=== PATIENT | male | born 1965 | race Caucasian/White ===

== ENCOUNTER → 2017-01-05 | Outpatient (CLI) | payer OTHER ==
[~2017-01-05] MED LIST: FLUO40CA8 PO; LISI-461 PO; LISI10TA PO
[2017-01-05 11:04] LABS: BASO % 0.6 %; BASO ABS # 0.04 K/uL (0-0.2); COMPLETE YES; EOS % 3.8 %; IG% 0.4 %; LYMPH % 35.4 %; LYMPH ABS # 2.45 K/uL (1.2-3.4); MEAN CELL VOLUME 92.3 fL (80-100); MEAN CORPUSCULAR HEMOGLOBIN 30.9 pg (25-34); MEAN CORPUSCULAR HGB CONC 33.5 g/dl (32-36); MEAN PLATELET VOLUME 9.7 fL (7.4-10.4); MONO % 8.1 %; NEUT % 51.7 %; PLATELET COUNT 239 K/uL (130-400); RED BLOOD COUNT 4.66 M/uL (4.7-6.1); WHITE BLOOD COUNT 6.93 K/uL (4.8-10.8)
[2017-01-05 11:26] LABS: ALT/SGPT 38 U/L (12-78); BLOOD UREA NITROGEN 20 mg/dl (7-18); BUN/CREATININE RATIO 20.6 (10-20); CARBON DIOXIDE 24 mmol/L (21-32); CHLORIDE 106 mmol/L (98-107); CHOLESTEROL 303 mg/dl (0-200); CREATININE 0.99 mg/dl (0.60-1.40); GLUCOSE 106 mg/dl (70-99); MAGNESIUM 2.3 mg/dl (1.8-2.4); POTASSIUM 4.2 mmol/L (3.5-5.1); SODIUM 139 mmol/L (136-145); TRIGLYCERIDES 289 mg/dl (0-150); VERY LOW DENSITY LIPOPROT CALC 58 mg/dl
[2017-01-05 11:28] LABS: CALCIUM 9.6 mg/dl (8.5-10.1)
[2017-01-05 11:29] LABS: ALB/GLOB RATIO 1.1 (0.9-2); ALKALINE PHOSPHATASE 90 U/L (45-117); AST/SGOT 20 U/L (15-37); CHOLESTEROL/HDL RATIO 5.9; HDL CHOLESTEROL 51 mg/dl; LDL CHOLESTEROL CALCULATED 194 mg/dl
[2017-01-05 11:45] LABS: RATIO 6.9 mcg/mg (0-30.0)
== END | disposition home or self-care (01) ==
LOC: C.LABBC 07:31
PROVIDERS: ATTEND Nurse Practitioner Family
DX: I10 Essential (primary) hypertension (principal); E78.00 Pure hypercholesterolemia, unspecified

== ENCOUNTER 2017-01-28 22:33 | Emergency (ER) | payer OTHER ==
[~2017-01-28] VITALS: Ht 180.3 cm; Wt 115.3 kg
[~2017-01-28 22:33] MED LIST changes: -LISI10TA PO
[2017-01-28 22:40] VITALS: TEMP 36.6; O2SAT 97; Ht 180.3 cm; Wt 115.3 kg
[2017-01-28 23:32] LABS: BUN/CREATININE RATIO 21.3 (10-20); CALCIUM 9.4 mg/dl (8.5-10.1); CREATININE 0.92 mg/dl (0.60-1.40); POTASSIUM 3.2 mmol/L (3.5-5.1)
[2017-01-28] MEDS ORDERED: POTASSIUM CHLORIDE 10 MEQ TABCR PO STA (23:41)
[2017-01-29] MEDS ORDERED: LORAZEPAM 1 MG TAB SL STA (01:30)
--- NOTE | 2017-01-29 08:48 | EMERGENCY ROOM VISIT NOTE ---
ED Visit Note First contact with patient: 08:48 This patient's care was transferred to [place] from Amy Niño PA-C for change of shift. This is a 51-year-old male, history of alcohol abuse, who presented to the emergency department with a medical alcohol level of 317 at 11:02 PM. Patient was placed on monitor and in prone position. The patient had no adverse events while in the emergency department. The patient was expressing concerns for severe depression last night, and was awaiting sobriety and a mental health evaluation at change of shift. A mental health evaluation was performed around 9:30 AM. It was felt that the patient was not at risk, benign suicidal or homicidal thoughts. He was provided contact information for psychiatric services locally. Please see the mental health evaluation note for further details. The patient was instructed to return to the emergency department for any worsening depression or suicidal/ homicidal thoughts. Secondary assessment was performed prior to discharge, showing showing no other acute injuries or complaints of other injuries from this incident. The patient was instructed to rest and remain well hydrated today, avoiding any further alcohol. The patient was discharged, voicing understanding of all discharge instructions. ASSESSMENT: 1. Ethyl alcohol overdose 2. Depression
[2017-01-29 11:03] VITALS: BP 141/89; PULSE 90; O2SAT 99
--- NOTE | 2017-01-29 21:29 | EMERGENCY ROOM VISIT NOTE ---
History First contact with patient: 22:35 Chief Complaint: ALCOHOL OVERDOSE Stated Complaint: Etoh, depression Nursing Triage Summary: Pt arrives to ER via BLS. Pt called EMS after drinking a 5th of Rum with reports of "not feeling well." EMS reports he relayed feeling depressed. History of Present Illness The patient is a 51 year old male who presents to the Emergency Room with complaints of Alcohol intoxication. Patient states he drank half a bottle of rum and then called EMS as he felt sad. Patient denies any previous problems it would like to go home. Patient lives alone. Patient denies drug use, chest pain, dyspnea, abdominal pain, fever, chills, cough, congestion or any other medical complaints. No fall. Review of Systems See HPI for pertinent positives & negatives. A total of 10 systems reviewed and were otherwise negative. Past Medical/Surgical History Medical Problems: (1) Alcoh Dep Nec/Nos-Unspec (2) Hip Joint Replacement Status (3) Hypertension Nos (4) Pure Hypercholesterolem Family History Blood clots Cancer Diabetes mellitus Heart disease Hypertension Social History Smoking Status: Unknown if Ever Smoked Alcohol Use: heavy Drug Use: none Marital Status: Housing Status: lives alone Occupation Status: employed Current/Historical Medications Unable to Obtain Active Prescriptions or Reported Meds Allergies Coded Allergies: No Known Allergies (Verified , 11/20/15) Physical Exam Vital Signs Date Time Temp Pulse Resp B/P (MAP) Pulse Ox O2 Delivery O2 Flow Rate FiO2 01/29/17 11:03 90 141/89 99 01/29/17 09:06 75 13 98 01/29/17 09:01 141/91 01/29/17 08:36 70 13 96 01/29/17 08:31 69 01/29/17 08:31 144/86 01/29/17 08:06 69 14 99 01/29/17 08:01 149/85 01/29/17 08:00 63 16 98 01/29/17 07:31 152/82 01/29/17 07:30 69 18 98 01/29/17 07:01 122/67 01/29/17 07:00 75 14 95 01/29/17 06:30 68 18 117/70 95 Room Air 01/29/17 06:00 71 14 115/78 92 Room Air 01/29/17 05:00 74 18 103/59 93 Room Air 01/29/17 04:00 76 18 110/69 94 Room Air 01/29/17 03:00 84 01/29/17 01:00 85 18 108/61 93 Room Air 01/28/17 23:30 88 18 126/85 94 Room Air 01/28/17 23:19 96 01/28/17 22:53 88 18 140/93 95 Room Air 01/28/17 22:40 36.6 92 18 131/90 97 Room Air 01/28/17 22:40 97 Room Air 01/28/17 22:40 97 Room Air Physical Exam PHYSICAL EXAM: VITALS: Vitals are noted on the nurse's note and reviewed by myself. Vital signs stable. GENERAL: White male with EtOH odor asking for food, in no acute distress, nondiaphoretic, well-developed well-nourished. The patient is visibly intoxicated. SKIN: The skin was without obvious lacerations, abrasions, or rashes. There is no tenting of the skin. Capillary reflex less than 2 seconds. HEENT: Normocephalic, atraumatic. PERRLA. EOMI. Conjunctiva with mild injection without icterus. Tympanic membranes without erythema or effusion bilaterally no hemotympanum. External auditory canals are clear. Nares patent bilaterally. No epistaxis. Oropharynx without erythema or exudate. Uvula midline. Oral mucosal moist. No lymphadenopathy. Neck is supple without cervical spine tenderness. HEART: Regular rate and rhythm without murmurs gallops or rubs. Peripheral pulses 2+. LUNGS: Clear to auscultation bilaterally without wheezes, rales or rhonchi. ABDOMEN: Positive bowel sounds x 4. Normal tympanic percussion. Soft, nontender, without masses or organomegaly. MUSCULOSKELETAL: Gross motor function of the upper and lower extremities intact. The patient has a staggering gait. NEUROLOGIC: The patient is visibly intoxicated. Once they were more sober they were alert and oriented to person place and time. Medical Decision & Procedures Laboratory Results 01/28/17 23:02 Test 01/28/17 23:02 Anion Gap 8.0 mmol/L (3-11) Est Creatinine Clear Calc Drug Dose 119.9 ml/min Estimated GFR () 109.7 Estimated GFR (Non- 94.6 BUN/Creatinine Ratio 21.3 (10-20) Calcium Level 9.4 mg/dl (8.5-10.1) Ethyl Alcohol mg/dL 317.0 mg/dl (0-3) Medications Administered Medications (Trade) Dose Ordered Sig/Carlo Route Start Time Stop Time Status Last Admin Dose Admin Potassium Chloride (Klor-Con M10) 30 meq NOW STAT PO 01/28/17 23:41 01/28/17 23:42 DC 01/28/17 23:52 30 MEQ Lorazepam (Ativan Tab) 1 mg NOW STAT SL 01/29/17 01:30 01/29/17 01:31 DC 01/29/17 01:36 1 MG ED Course Prior records/ancillary studies reviewed. Triage Nursing notes reviewed. Additional history obtained from EMS. The patient's history was concerning for altered mental status and a possible alcohol overdose. Differential diagnosis: Etiologies such as alcohol intoxication, toxicologic, infection, hypoglycemia, electrolyte abnormalities, cardiac sources, intracerebral event, neurologic, as well as others were entertained. Physical examination: As above. The patient is clinically intoxicated. no trauma noted. ER treatment provided: Monitoring Aspiration precautions The patient was frequently reassessed. Diagnostic interpretation by me: Cardiac monitoring did not reveal any evidence of dysrhythmia. The labs reviewed. The patient's blood alcohol level was 317 mg/dL. Exam and history seem consistent with alcohol intoxication with thoughts of depression. Patient will be evaluated once he is sober as he currently denies any suicidal or homicidal ideations but he is highly intoxicated. Case is signed out to Howard Herrera PA-C pending patient sobering up and reevaluation in stable condition. By the evaluation outlined above emergent etiologies such as trauma, infection, hypoglycemia, electrolyte abnormalities, cardiac sources, intracerebral event, neurologic,as well as others were deemed relatively unlikely. The patient was informed about the findings as listed above. The patient was counseled on the dangers of excessive alcohol use. I gave my usual and customary discussion regarding this issue. All questions were answered and the patient was pleased with the treatment. Return instructions were outlined and the patient was discharged in stable condition once their mental status improved and a safe destination was confirmed. Outpatient prescription management: None Referral: The patient was referred back to their primary care physician for follow-up in 2 to 3 days for a recheck of their current condition. Case reviewed with my attending Medical Decision As above Impression Primary Impression: Alcohol abuse Departure Information Dispostion Home / Self-Care Condition GOOD Prescriptions Unable to Obtain Active Prescriptions or Reported Meds Referrals Carlos Nuñez III, CRNP (PCP) Patient Instructions My [facility] Additional Instructions Keep well-hydrated. Tylenol every 6 hours as needed for pain (Maximum 3000 mg Tylenol in 24 hr period). Follow up with family doctor in 1-2 days. No driving for the next 24 hours. Recommend no alcohol for the next 48 hours and avoid binge drinking in the future. Return to ER sooner for chest pain, abdominal pain, worsening signs or symptoms or as needed.
== END 2017-01-29 11:05 | disposition home or self-care (01) ==
LOC: C.EDB 22:33 → EDBD 22:33 → C.EDB 01-29 11:05
DX: F10.129 Alcohol abuse with intoxication, unspecified (principal); Y90.8 Blood alcohol level of 240 mg/100 ml or more; F32.9 Major depressive disorder, single episode, unspecified; I10 Essential (primary) hypertension; E78.00 Pure hypercholesterolemia, unspecified; Z96.649 Presence of unspecified artificial hip joint; Z83.2 Family history of diseases of the blood and blood-forming organs and certain disorders involving the immune mechanism; Z83.3 Family history of diabetes mellitus; Z82.49 Family history of ischemic heart disease and other diseases of the circulatory system

== ENCOUNTER 2017-03-09 22:55 | Emergency (ER) | payer OTHER ==
[~2017-03-09] VITALS: Ht 177.8 cm; Wt 117.1 kg
[2017-03-09 23:04] VITALS: TEMP 36.6; Ht 177.8 cm; Wt 117.1 kg
[2017-03-09] MEDS ORDERED: LISI10TA PO (23:25)
[2017-03-09] MEDS ORDERED: FLUO40CA8 PO (23:25)
[2017-03-10 05:31] VITALS: BP 121/80; PULSE 81; O2SAT 95
--- NOTE | 2017-03-10 06:42 | EMERGENCY ROOM VISIT NOTE ---
History Report prepared by Prosper: Jorje Cohen Under the Supervision of: Dr. Christiano Barr M.D. First contact with patient: 23:16 Chief Complaint: MENTAL HEALTH EVALUATION Stated Complaint: MENTAL HEALTH EVAL History of Present Illness The patient is a 51 year old male who presents to the Emergency Room for a mental health evaluation. This history is limited secondary to alcohol intoxication. Earlier this evening, the patient called the police. He does not know why he called the police, but he states that he is very depressed. He states that "shit is not going right" in his life. His daughter recently got out of a rehabilitation center for a heroin addiction yesterday. He has not heard from her since. He states she is living in [place], and he is very worried about her. Earlier today, he quit his job. He denies any suicidal ideation. He has a past medical history of depression and alcoholism. He does not use any other drugs. He is not looking for placement into a rehab center. Source of History: patient History Limited By: intoxication Onset: Earlier this evening Position: other (Global) Symptom Intensity: moderate Quality: other (Mental Health Evaluation) Timing: constant Note: He denies any suicidal ideation. Review of Systems Limited due to alcohol intoxication. Past Medical & Surgical Medical Problems: (1) Alcoh Dep Nec/Nos-Unspec (2) Hip Joint Replacement Status (3) Hypertension Nos (4) Pure Hypercholesterolem Family History Blood clots Cancer Diabetes mellitus Heart disease Hypertension Social History Smoking Status: Current Some Day Smoker Alcohol Use: heavy Drug Use: none Marital Status: Housing Status: lives alone Occupation Status: unemployed Current/Historical Medications Scheduled Fluoxetine (Prozac), 40 MG PO DAILY Lisinopril (Prinivil), 10 MG PO DAILY Allergies Coded Allergies: No Known Allergies (Verified , 03/09/17) Physical Exam Vital Signs Date Time Temp Pulse Resp B/P (MAP) Pulse Ox O2 Delivery O2 Flow Rate FiO2 03/10/17 05:31 81 18 121/80 95 03/10/17 03:03 92 18 135/88 94 Room Air 03/10/17 01:08 100 18 94 Room Air 03/09/17 23:04 36.6 109 18 120/74 95 Room Air Physical Exam Constitutional: Vital signs reviewed. Eyes: Pupils are equal round reactive to light. Conjunctiva are noninjected. ENT: Pharynx is clear without erythema or exudate. Mucous membranes are moist. Neck supple without meningeal signs. Respiratory: Clear to auscultation bilaterally. Breath sounds are equal bilaterally. Cardiovascular: Regular rate and rhythm. No rubs or gallops. GI: Soft, nondistended and nontender. Bowel sounds are present. Musculoskeletal: No peripheral edema. Integumentary: No cyanosis. Neurological: The patient is awake and alert. No focal deficits. Psychiatric: He appears intoxicated. Medical Decision & Procedures ED Course 2316: The patient was evaluated in room A9. A complete history and physical exam was performed. 0020: Case management evaluated the patient at this time. He states that he is just very lonely and would like to lie in the ED for a while. 0125: The patient is sleeping at this time. 0530: Upon reevaluation, the patient is awake, alert, and does not appear to be intoxicated anymore. He does not want a mental health evaluation and would like to go home. He is ready for discharge. Medical Decision This is a 51-year-old male who presents with alcohol intoxication. I did perform a limited focused review of portions of the patient's old chart on the electronic medical record. The patient was here in the Emergency Department on January 28 for an alcohol overdose. He has also had several prior visits for alcohol intoxication. I did evaluate the patient as noted above. He is presenting intoxicated. He states that he is not feeling well because he does not know where his daughter is and he quit his job today. He denies any homicidal or suicidal ideation. He does not want inpatient psychiatric care or rehabilitation for his alcohol dependence. He stated that he simply wanted to sleep here and not feel lonely. We did observe him in the ED for some time. He appeared clinically more sober and wanted to leave. He ambulated without difficulty. He had no slurred speech. He again denied wanting any psychiatric help for help with his alcohol dependence. Safe transportation was arranged for him and he was discharged. Medication Reconcilliation Current Medication List: was personally reviewed by me Blood Pressure Screening Patient's blood pressure: Normal blood pressure Blood pressure disposition: Did not require urgent referral Impression Primary Impression: Alcohol intoxication Scribe Attestation The scribe's documentation has been prepared under my direct and personally reviewed by me in its entirety. I confirm that the note above accurately reflects all work, treatment, procedures, and medical decision making performed by me. Departure Information Dispostion Home / Self-Care Referrals Carlos Nuñez III, CRNP (PCP) Forms HOME CARE DOCUMENTATION FORM, IMPORTANT VISIT INFORMATION Patient Instructions ED Alcohol Intoxication, My [facility] Additional Instructions You have been examined and treated today on an emergency basis only. This is not a substitute for, or an effort to provide, complete comprehensive medical care. It is impossible to recognize and treat all injuries or illnesses in a single emergency department visit. It is therefore important that you follow up closely with your physician. Call as soon as possible for an appointment. Return for worsening symptoms or if you develop thoughts of hurting yourself or any other concerning symptoms. Problem Qualifiers Primary Impression: Alcohol intoxication Complication of substance-induced condition: uncomplicated Qualified Codes: F10.920 - Alcohol use, unspecified with intoxication, uncomplicated
== END 2017-03-10 05:32 | disposition home or self-care (01) ==
LOC: C.EDB 22:56 → C.EDA 03-10 05:32
DX: F10.129 Alcohol abuse with intoxication, unspecified (principal); I10 Essential (primary) hypertension; E78.00 Pure hypercholesterolemia, unspecified; F17.200 Nicotine dependence, unspecified, uncomplicated; Z96.649 Presence of unspecified artificial hip joint; Z79.899 Other long term (current) drug therapy; Z80.9 Family history of malignant neoplasm, unspecified; Z83.3 Family history of diabetes mellitus; Z82.49 Family history of ischemic heart disease and other diseases of the circulatory system

== ENCOUNTER 2017-03-30 21:00 | Emergency (ER) | payer OTHER ==
[~2017-03-30] VITALS: Ht 175.3 cm; Wt 120.8 kg
[~2017-03-30 21:00] MED LIST changes: -LISI-461 PO; +LISI10TA PO
[2017-03-30 21:01] VITALS: TEMP 36.8; Ht 175.3 cm; Wt 120.8 kg
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
[2017-03-30 22:23] LABS: BASO % 0.6 %; BASO ABS # 0.07 K/uL (0-0.2); COMPLETE YES; EOS % 1.7 %; HEMATOCRIT 40.8 % (42-52); IG% 0.9 %; LYMPH ABS # 3.29 K/uL (1.2-3.4); MEAN CELL VOLUME 88.9 fL (80-100); MEAN CORPUSCULAR HEMOGLOBIN 31.8 pg (25-34); MEAN CORPUSCULAR HGB CONC 35.8 g/dl (32-36); MEAN PLATELET VOLUME 8.9 fL (7.4-10.4); MONO % 5.1 %; NEUT % 63.7 %; PLATELET COUNT 315 K/uL (130-400); RED BLOOD COUNT 4.59 M/uL (4.7-6.1); WHITE BLOOD COUNT 11.74 K/uL (4.8-10.8)
[2017-03-30 22:31] LABS: BUN/CREATININE RATIO 14.9 (10-20); CALCIUM 9.5 mg/dl (8.5-10.1); CREATININE 1.4 mg/dl (0.60-1.40); POTASSIUM 3.6 mmol/L (3.5-5.1)
[2017-03-30 22:42] LABS: THYROID STIMULATING HORMONE 1.97 uIu/ml (0.300-4.500)
[2017-03-30] MEDS ORDERED: LORAZEPAM 1 MG TAB SL STA (22:48)
[2017-03-30 22:51] VITALS: PULSE 88; O2SAT 94
[2017-03-30 23:10] VITALS: BP 86/45
== END 2017-03-30 23:20 | disposition home or self-care (01) ==
LOC: C.EDB 21:00 → C.EDA 23:20
DX: F10.920 Alcohol use, unspecified with intoxication, uncomplicated (principal); I10 Essential (primary) hypertension; E78.00 Pure hypercholesterolemia, unspecified; Z82.49 Family history of ischemic heart disease and other diseases of the circulatory system; Z80.9 Family history of malignant neoplasm, unspecified; Z83.3 Family history of diabetes mellitus; F17.210 Nicotine dependence, cigarettes, uncomplicated; Z79.899 Other long term (current) drug therapy

== ENCOUNTER 2017-07-22 03:47 | Observation (INO) | payer OTHER ==
[~2017-07-22] VITALS: Ht 177.8 cm; Wt 122.5 kg
[2017-07-22] MEDS ORDERED: ONDANSETRON INJ 2 MG/ML 2 ML VIAL IV STA (04:00)
[2017-07-22] MEDS ORDERED: MoRPHine SULFATE 4 MG/ML 1 ML CARP\\VIAL IV STA (04:00)
[2017-07-22] MEDS ORDERED: SODIUM CHLORIDE 0.9% 500ML 500 ML IV STA (04:00)
[2017-07-22 04:25] LABS: BASO % 0.5 %; BASO ABS # 0.04 K/uL (0-0.2); EOS % 2.4 %; EOS ABS # 0.21 K/uL (0-0.5); HEMATOCRIT 41.6 % (42-52); HEMOGLOBIN 14.7 g/dL (14.0-18.0); IG# 0.01 K/uL (0.00-0.02); LYMPH % 24.1 %; MEAN CELL VOLUME 93.7 fL (80-100); MEAN CORPUSCULAR HEMOGLOBIN 33.1 pg (25-34); MEAN CORPUSCULAR HGB CONC 35.3 g/dl (32-36); MEAN PLATELET VOLUME 9.6 fL (7.4-10.4); MONO % 5.5 %; MONO ABS # 0.48 K/uL (0.11-0.59); NEUT % 67.4 %; NEUT ABS # 5.88 K/uL (1.4-6.5); PLATELET COUNT 219 K/uL (130-400); RED CELL DISTRIBUTION WIDTH CV 13.4 % (11.5-14.5); RED CELL DISTRIBUTION WIDTH SD 46.3 fL (36.4-46.3); WHITE BLOOD COUNT 8.72 K/uL (4.8-10.8)
[2017-07-22 04:30] LABS: ISTAT IONIZED CALCIUM 1.26 mmol/l (1.12-1.32); ISTAT POTASSIUM 3.9 mEq/L (3.3-5.0)
[2017-07-22] MEDS ORDERED: SODIUM CHLORIDE 0.9% 1000ML 2,000 ML IV STA (04:49)
[2017-07-22] MEDS ORDERED: OPTIRAY 320 IV PRN (05:00)
[2017-07-22] MEDS ORDERED: HYDROmorphone INJ 1 MG/ML SYR IV STA (05:02)
[2017-07-22 05:06] LABS: ALBUMIN 4.3 gm/dl (3.4-5.0); CALCIUM 9.8 mg/dl (8.5-10.1); CREATININE 1.13 mg/dl (0.60-1.40); TOTAL PROTEIN 8.5 gm/dl (6.4-8.2)
[2017-07-22 05:12] LABS: POTASSIUM 3.9 mmol/L (3.5-5.1)
[2017-07-22] MEDS ORDERED: CALCTAB5 PO (05:18)
[2017-07-22] MEDS ORDERED: KETOROLAC TROMETHAMINE 30 MG/ML VIAL IV STA (05:39)
[2017-07-22] MEDS ORDERED: TAMSULOSIN HCL 0.4 MG CAP PO ONE (06:15)
--- NOTE | 2017-07-22 06:42 | EMERGENCY ROOM VISIT NOTE ---
History First contact with patient: 03:55 Chief Complaint: ABDOMINAL PAIN Stated Complaint: STOMACH PAIN History of Present Illness The patient is a 51 year old male who presents to the Emergency Room with complaints of severe sudden onset of left lower abdominal pain since 9 PM last night currently 8 out of 10. Nothing makes it better or worse. It usually radiates to his groin. Patient states his urine has been dark. Patient's last drink was 5 days ago. He has a history of alcoholism. He continues to smoke. He has been taking his blood pressure medication. Patient denies chest pain, dyspnea, fever, chills, dysuria, black stool or recent blood in the stool. Colonoscopy 10 years ago was negative. Nothing more recent. Review of Systems See HPI for pertinent positives & negatives. A total of 10 systems reviewed and were otherwise negative. Past Medical/Surgical History Medical Problems: (1) Alcoh Dep Nec/Nos-Unspec (2) Hip Joint Replacement Status (3) Hydronephrosis with obstructing calculus (4) Hypertension Nos (5) Pure Hypercholesterolem Family History Blood clots Cancer Diabetes mellitus Heart disease Hypertension Social History Smoking Status: Current Every Day Smoker Alcohol Use: heavy Drug Use: none Marital Status: Housing Status: lives alone Occupation Status: unemployed Current/Historical Medications Scheduled Calcium Carbonate (Caltrate 600), 1 TAB PO DAILY Fluoxetine (Prozac), 40 MG PO DAILY Lisinopril (Prinivil), 10 MG PO DAILY Allergies Coded Allergies: No Known Allergies (Verified , 07/22/17) Physical Exam Vital Signs Date Time Temp Pulse Resp B/P (MAP) Pulse Ox O2 Delivery O2 Flow Rate FiO2 07/22/17 06:07 74 18 95 07/22/17 06:01 171/124 07/22/17 05:52 81 22 92 07/22/17 05:47 78 17 95 Room Air 07/22/17 05:32 83 21 91 07/22/17 05:31 180/126 07/22/17 05:17 84 15 95 07/22/17 05:12 82 19 98 07/22/17 05:02 193/96 07/22/17 04:37 90 18 96 07/22/17 04:32 79 19 98 07/22/17 04:31 207/140 07/22/17 04:28 78 07/22/17 04:27 74 20 97 Room Air 07/22/17 04:26 201/125 07/22/17 03:52 36.6 83 18 214/129 95 Room Air Physical Exam VITALS: Vitals are noted on the nurse's note and reviewed by myself. Vital signs hypertensive GENERAL: Pleasant male writhing in pain, nondiaphoretic, well-developed well- nourished. SKIN: The skin was without rashes, erythema, edema, or bruising. There is no tenting of the skin. HEAD: Normocephalic atraumatic. EARS: External auditory canals clear, tympanic membranes pearly hope without erythema or effusion bilaterally. EYES: Pupils equal round and reactive to light and accommodation. Conjunctivae without injection, sclerae without icterus. Extraocular movements intact. NOSE: Patent, turbinates without inflammation or discharge. MOUTH: Mucous membranes mildly dry. Pharynx without erythema or exudate. Uvula midline. Airway patent. Tongue does not deviate. NECK: Supple without nuchal rigidity. No lymphadenopathy. No thyromegaly. Cervical spine is nontender. No JVD. HEART: Regular rate and rhythm LUNGS: Clear to auscultation bilaterally without wheezes, rales or rhonchi. No dullness to percussion. No retractions or accessory muscle use. ABDOMEN: Positive bowel sounds x 4. Normal tympanic percussion. Soft, nontender, without masses or organomegaly. Osei sign negative. No guarding or rebound tenderness. Left CVA tenderness MUSCULOSKELETAL: No muscle atrophy, erythema, or edema noted. NEURO: Patient was alert and oriented to person place and time. Normal sensation to light and sharp touch. No focal neurological deficits. Medical Decision & Procedures Laboratory Results 07/22/17 04:15 Red Blood Count 4.44, Mean Corpuscular Volume 93.7, Mean Corpuscular Hemoglobin 33.1, Mean Corpuscular Hemoglobin Concent 35.3, Mean Platelet Volume 9.6, Neutrophils (%) (Auto) 67.4, Lymphocytes (%) (Auto) 24.1, Monocytes (%) (Auto) 5.5, Eosinophils (%) (Auto) 2.4, Basophils (%) (Auto) 0.5, Neutrophils # (Auto) 5.88, Lymphocytes # (Auto) 2.10, Monocytes # (Auto) 0.48, Eosinophils # (Auto) 0.21, Basophils # (Auto) 0.04 07/22/17 04:15 Test 07/22/17 04:05 07/22/17 04:15 07/22/17 04:19 07/22/17 05:22 Urine Color YELLOW Urine Appearance CLOUDY (CLEAR) Urine pH 5.0 (4.5-7.5) Urine Specific [place] 1.030 (1.000-1.030) Urine Protein NEG (NEG) Urine Glucose (UA) NEG (NEG) Urine Ketones NEG (NEG) Urine Occult Blood 3+ (NEG) Urine Nitrite NEG (NEG) Urine Bilirubin NEG (NEG) Urine Urobilinogen NEG (NEG) Urine Leukocyte Esterase NEG (NEG) Urine WBC (Auto) 1-5 /hpf (0-5) Urine RBC (Auto) 10-30 /hpf (0-4) Urine Hyaline Casts (Auto) 1-5 /lpf (0-5) Urine Epithelial Cells (Auto) 0-5 /lpf (0-5) Urine Bacteria (Auto) NEG (NEG) White Blood Count 8.72 K/uL (4.8-10.8) Red Blood Count 4.44 M/uL (4.7-6.1) Hemoglobin 14.7 g/dL (14.0-18.0) Hematocrit 41.6 % (42-52) Mean Corpuscular Volume 93.7 fL (80-100) Mean Corpuscular Hemoglobin 33.1 pg (25-34) Mean Corpuscular Hemoglobin Concent 35.3 g/dl (32-36) Platelet Count 219 K/uL (130-400) Mean Platelet Volume 9.6 fL (7.4-10.4) Neutrophils (%) (Auto) 67.4 % Lymphocytes (%) (Auto) 24.1 % Monocytes (%) (Auto) 5.5 % Eosinophils (%) (Auto) 2.4 % Basophils (%) (Auto) 0.5 % Neutrophils # (Auto) 5.88 K/uL (1.4-6.5) Lymphocytes # (Auto) 2.10 K/uL (1.2-3.4) Monocytes # (Auto) 0.48 K/uL (0.11-0.59) Eosinophils # (Auto) 0.21 K/uL (0-0.5) Basophils # (Auto) 0.04 K/uL (0-0.2) RDW Standard Deviation 46.3 fL (36.4-46.3) RDW Coefficient of Variation 13.4 % (11.5-14.5) Immature Granulocyte % (Auto) 0.1 % Immature Granulocyte # (Auto) 0.01 K/uL (0.00-0.02) Est Creatinine Clear Calc Drug Dose 99.2 ml/min Estimated GFR () 85.5 Estimated GFR (Non- 73.8 BUN/Creatinine Ratio 21.4 (10-20) Bedside Lactic Acid Venous 2.44 mmol/L (0.90-1.70) Calcium Level 9.8 mg/dl (8.5-10.1) Total Bilirubin 0.5 mg/dl (0.2-1) Direct Bilirubin 0.1 mg/dl (0-0.2) Aspartate Amino Transf (AST/SGOT) 59 U/L (15-37) Alanine Aminotransferase (ALT/SGPT) 110 U/L (12-78) Alkaline Phosphatase 97 U/L (45-117) Total Protein 8.5 gm/dl (6.4-8.2) Albumin 4.3 gm/dl (3.4-5.0) Lipase 218 U/L (73-393) Bedside Hemoglobin 14.3 g/dl (14.0-18.0) Bedside Hematocrit 42 % (42-52) Bedside Sodium 141 mEq/L (135-144) Bedside Potassium 3.9 mEq/L (3.3-5.0) Bedside Chloride 106 mEq/L (101-112) Bedside Total CO2 25 mEq/l (24-31) Anion Gap 15.0 mmol/L (16-25) Bedside Blood Urea Nitrogen 25 mg/dl (7-18) Bedside Creatinine 1.0 mg/dl (0.6-1.3) Bedside Glucose (other) 131 mg/dl (70-99) Bedside Ionized Calcium (Divina) 1.26 mmol/l (1.12-1.32) Medications Administered Medications (Trade) Dose Ordered Sig/Carlo Route Start Time Stop Time Status Last Admin Dose Admin Morphine Sulfate (MoRPHine SULFATE INJ) 4 mg NOW STAT IV 07/22/17 04:00 07/22/17 04:02 DC 07/22/17 04:29 4 MG Ondansetron HCl (Zofran Inj) 4 mg NOW STAT IV 12/20/17 04:00 07/22/17 04:02 DC 07/22/17 04:32 4 MG Sodium Chloride 500 ml @ 999 mls/hr Q31M STAT IV 07/22/17 04:00 07/22/17 04:30 DC 07/22/17 04:29 999 MLS/HR Sodium Chloride 2,000 ml @ 999 mls/hr Q2H1M STAT IV 07/22/17 04:49 07/22/17 06:49 07/22/17 05:04 999 MLS/HR Hydromorphone HCl (Dilaudid Inj) 1 mg NOW STAT IV 07/22/17 05:02 07/22/17 05:03 DC 07/22/17 05:09 1 MG Ketorolac Tromethamine (Toradol Inj) 30 mg NOW STAT IV 07/22/17 05:39 07/22/17 05:40 DC 07/22/17 05:46 30 MG Tamsulosin HCl (Flomax Cap) 0.4 mg NOW ONCE PO 07/22/17 06:15 07/22/17 06:16 DC 07/22/17 06:11 0.4 MG ED Course Prior records/ancillary studies reviewed. Triage Nursing notes reviewed. The patient's history was concerning for left lower abdominal pain. Differential diagnosis: Etiologies such as renal colic, appendicitis, diverticulitis, mesenteric ischemia, aortic pathology, infections, inflammatory bowel disease, PUD, biliary pathology, UTI, as well as others were entertained. Physical examination findings: As above. ER treatment provided: Morphine, Dilaudid, IV fluids, Toradol, Flomax On reassessment the patient felt better. Diagnostic interpretation by me: The labs revealed no leukocytosis. Lactic acid 2.44. Urinalysis revealed hematuria. There was no sign of UTI. mildly elevated LFTs and hep panel was ordered with coags. Imaging studies: CT of the abdomen and pelvis as above. There is a mild left hydronephrosis and hydroureter with perinephric and her usual stranding. Unable to visualize kidney stone per stat radiology. KUB with no obstruction per my interpretation Consultation: A consultation was placed with Dr Basurto, hospitalist. The case was discussed and diagnostics were reviewed. The patient was evaluated in the ER for further treatment. It appears that the patient has isolated renal colic from a left sided stone. Patient was still in severe amount of pain. Blood pressure slowly came down. Patient will be evaluated by medicine for possible admission for intractable pain, elevated blood pressure and lactic acid. The patient appeared Dehydrated on clinical exam and this could be causing a mild elevation in his lactic acid. He was hydrated as above. By the evaluation outlined above emergent etiologies such as appendicitis, diverticulitis, mesenteric ischemia, aortic pathology, infections, inflammatory bowel disease, PUD, biliary pathology , UTI, as well as others were deemed relatively unlikely. The pt informed about the findings as listed above. All questions were answered and pleased with the treatment. Case reviewed with my Attending. Medical Decision As above Impression Primary Impression: Renal colic on left side Additional Impression: Hypertension Departure Information Dispostion Being Evaluated By Hospitalist Condition GOOD Referrals No Doctor, Assigned (PCP) Patient Instructions My [facility] Problem Qualifiers
[2017-07-22] MEDS ORDERED: ONDANSETRON INJ 2 MG/ML 2 ML VIAL IV PRN (06:45)
[2017-07-22] MEDS ORDERED: ALUMINUM/MAGNESIUM/SIMETH (MAALOX MAX) 30 ML UDC PO PRN (06:45)
[2017-07-22] MEDS ORDERED: ACETAMINOPHEN 325 MG TAB PO PRN (06:45)
[2017-07-22] MEDS ORDERED: MAGNESIUM HYDROXIDE SUSP 30 ML UDC PO PRN (06:45)
[2017-07-22] MEDS ORDERED: POLYETHYLENE (MIRALAX) 17 GM PACK PO PRN (06:45)
--- NOTE | 2017-07-22 06:46 | History and Physical ---
History & Physical Date & Time of Service: Jul 22, 2017 at 06:40 Chief Complaint: Stomach Pain Primary Care Physician: Carlos Nuñez III, CRNP History of Present Illness Source: patient 51 y/o M Hx ETOH abuse, HTN, HPL, depression with previous suicide attempts. Pt presents with acute onset of lower abdominal pain, mostly in his LLQ. He denies nausea/vomiting, fevers or rigors. He describes urinary frequency. A CT abdomen was obtained in the ER and revealed R hydronephrosis with perinephric stranding. No discrete calculus was observed, however, the finding suggest a possible obstruction at the R UVJ. Past Medical/Surgical History 1) ETOH abuse 2) HTN 3) HPL 4) Fatty liver 5) Depression with previous suicide attempts 6) Smoker 7) B/L hip replacement 8) Obesity Family History Blood clots Cancer Diabetes mellitus Heart disease Hypertension Social History Smokes 10 cigarettes daily - recent daily "heavy" drinking. Unemployed. Smoking Status: Current Every Day Smoker Drug Use: none Marital Status: Housing status: lives alone Occupational Status: unemployed Immunizations History of Influenza Vaccine: Yes History of Tetanus Vaccine?: Yes History of Pneumococcal: No History of Hepatitis B Vaccine: No Multi-Drug Resistant Organisms History of MDRO: No Allergies Coded Allergies: No Known Allergies (Verified , 07/22/17) Home Medications Scheduled Calcium Carbonate (Caltrate 600), 1 TAB PO DAILY Fluoxetine (Prozac), 40 MG PO DAILY Lisinopril (Prinivil), 10 MG PO DAILY Review of Systems Constitutional: No fever, No chills, No sweats Eyes: No worsening of vision ENT: No hearing loss, No unusual epistaxis, No nasal symptoms Respiratory: No cough, No sputum, No wheezing Cardiovascular: No chest pain, No orthopnea, No PND Abdomen: + pain, No nausea, No vomiting Musculoskeletal: No joint pain Genitourinary - Male: No hematuria, No dysuria Neurologic: No memory loss, No paralysis, No weakness Psychiatric: No depression symptoms Endocrine: No fatigue Hematologic / Lymphatic: No abnormal bleeding/bruising Integumentary: No rash Allergic / Immunologic: No environmental allergies Physical Exam Vital Signs Date Time Temp Pulse Resp B/P (MAP) Pulse Ox O2 Delivery O2 Flow Rate FiO2 07/22/17 06:07 74 18 95 07/22/17 06:01 171/124 07/22/17 05:52 81 22 92 07/22/17 05:47 78 17 95 Room Air 07/22/17 05:32 83 21 91 07/22/17 05:31 180/126 07/22/17 05:17 84 15 95 07/22/17 05:12 82 19 98 07/22/17 05:02 193/96 07/22/17 04:37 90 18 96 07/22/17 04:32 79 19 98 07/22/17 04:31 207/140 07/22/17 04:28 78 07/22/17 04:27 74 20 97 Room Air 07/22/17 04:26 201/125 07/22/17 03:52 36.6 83 18 214/129 95 Room Air General Appearance: WD/WN, no apparent distress Head: normocephalic Eyes: normal inspection ENT: normal ENT inspection, hearing grossly normal Neck: supple, no adenopathy, thyroid normal, no JVD Respiratory/Chest: chest non-tender, lungs clear, normal breath sounds Cardiovascular: regular rate, rhythm, no edema, no gallop Abdomen/GI: normal bowel sounds, + pertinent finding (mild L flank and LLQ tenderness to palpation) Neurologic/Psych: line clearance foreman II-XII nml as tested, no motor/sensory deficits, alert, oriented x 3 Skin: normal color, warm/dry Diagnostics Laboratory Results Results Past 24 Hours Test 07/22/17 04:05 07/22/17 04:15 07/22/17 04:19 07/22/17 05:22 Range/Units Urine Color YELLOW Urine Appearance CLOUDY CLEAR Urine pH 5.0 4.5-7.5 Urine Specific [place] 1.030 1.000-1.030 Urine Protein NEG NEG Urine Glucose (UA) NEG NEG Urine Ketones NEG NEG Urine Occult Blood 3+ NEG Urine Nitrite NEG NEG Urine Bilirubin NEG NEG Urine Urobilinogen NEG NEG Urine Leukocyte Esterase NEG NEG Urine WBC (Auto) 1-5 0-5 /hpf Urine RBC (Auto) 10-30 0-4 /hpf Urine Hyaline Casts (Auto) 1-5 0-5 /lpf Urine Epithelial Cells (Auto) 0-5 0-5 /lpf Urine Bacteria (Auto) NEG NEG White Blood Count 8.72 4.8-10.8 K/uL Red Blood Count 4.44 4.7-6.1 M/uL Hemoglobin 14.7 14.0-18.0 g/dL Hematocrit 41.6 42-52 % Mean Corpuscular Volume 93.7 80-100 fL Mean Corpuscular Hemoglobin 33.1 25-34 pg Mean Corpuscular Hemoglobin Concent 35.3 32-36 g/dl Platelet Count 219 130-400 K/uL Mean Platelet Volume 9.6 7.4-10.4 fL Neutrophils (%) (Auto) 67.4 % Lymphocytes (%) (Auto) 24.1 % Monocytes (%) (Auto) 5.5 % Eosinophils (%) (Auto) 2.4 % Basophils (%) (Auto) 0.5 % Neutrophils # (Auto) 5.88 1.4-6.5 K/uL Lymphocytes # (Auto) 2.10 1.2-3.4 K/uL Monocytes # (Auto) 0.48 0.11-0.59 K/uL Eosinophils # (Auto) 0.21 0-0.5 K/uL Basophils # (Auto) 0.04 0-0.2 K/uL RDW Standard Deviation 46.3 36.4-46.3 fL RDW Coefficient of Variation 13.4 11.5-14.5 % Immature Granulocyte % (Auto) 0.1 % Immature Granulocyte # (Auto) 0.01 0.00-0.02 K/uL Sodium Level 139 136-145 mmol/L Potassium Level 3.9 3.5-5.1 mmol/L Chloride Level 106 98-107 mmol/L Carbon Dioxide Level 25 21-32 mmol/L Anion Gap 8.0 15.0 16-25 mmol/L Blood Urea Nitrogen 24 7-18 mg/dl Creatinine 1.13 0.60-1.40 mg/dl Est Creatinine Clear Calc Drug Dose 99.2 ml/min Estimated GFR () 85.5 Estimated GFR (Non- 73.8 BUN/Creatinine Ratio 21.4 10-20 Random Glucose 124 70-99 mg/dl Bedside Lactic Acid Venous 2.44 0.90-1.70 mmol/L Calcium Level 9.8 8.5-10.1 mg/dl Total Bilirubin 0.5 0.2-1 mg/dl Direct Bilirubin 0.1 0-0.2 mg/dl Aspartate Amino Transf (AST/SGOT) 59 15-37 U/L Alanine Aminotransferase (ALT/SGPT) 110 12-78 U/L Alkaline Phosphatase 97 45-117 U/L Total Protein 8.5 6.4-8.2 gm/dl Albumin 4.3 3.4-5.0 gm/dl Lipase 218 73-393 U/L Bedside Hemoglobin 14.3 14.0-18.0 g/dl Bedside Hematocrit 42 42-52 % Bedside Sodium 141 135-144 mEq/L Bedside Potassium 3.9 3.3-5.0 mEq/L Bedside Chloride 106 101-112 mEq/L Bedside Total CO2 25 24-31 mEq/l Bedside Blood Urea Nitrogen 25 7-18 mg/dl Bedside Creatinine 1.0 0.6-1.3 mg/dl Bedside Glucose (other) 131 70-99 mg/dl Bedside Ionized Calcium (Divina) 1.26 1.12-1.32 mmol/l Impression Assessment and Plan 51 y/o M Hx ETOH abuse, HTN, HPL, depression with previous suicide attempts. Pt presents with acute onset of lower abdominal pain, mostly in his LLQ. He denies nausea/vomiting, fevers or rigors. He describes urinary frequency. A CT abdomen was obtained in the ER and revealed R hydronephrosis with perinephric stranding. No discrete calculus was observed, however, the finding suggest a possible obstruction at the R UVJ. 1) Hydronephrosis - probable obstructing calculus - pain control, IVF provided. Pt will be kept NPO pending a urology evaluation. No current evidence of infection. 2) ETOH abuse - will place on a withdrawal protocol. Daily banana bag ordered, TID Librium, PRN Ativan, IVF containing GLU. 3) HTN - cont ARB as tolerated 4) HPL - not currently treated 5) Tobacco use - does not express interest in cessation Full code - SCDs due to withdrawal and fall risk Total time for this admit including review of labs, meds, imaging - discussion with pt and ER attending 33 min Level of Care Med/Surg Resuscitation Status FULL RESUSCITATION VTE Prophylaxis VTE Risk Assessment Done? Y/N: Yes Risk Level: Low Given or contraindicated: SCD's
--- NOTE | 2017-07-22 06:51 | DIAGNOSTIC IMAGING REPORT ---
KUB CLINICAL HISTORY: left renal colic COMPARISON STUDY: CT scan dated 07/22/2017 FINDINGS: There is contrast within the collecting systems and ureters secondary to a prior CT scan. There is mild left-sided hydronephrosis and hydroureter down to the level of the left ureterovesical junction. There are postsurgical changes of a total left hip arthroplasty and right hip resurfacing procedure. There is no pathologic bowel dilatation. IMPRESSION: Mild left-sided hydronephrosis and hydroureter down to the level of the left ureterovesical junction. Electronically signed by: Cyril Thakkar M.D. 07/22/2017 6:50 AM Dictated Date/Time: 07/22/2017 6:49 AM
[2017-07-22] MEDS ORDERED: LORAZEPAM 2 MG/ML 1 ML VIAL IV PRN (07:00)
[2017-07-22] MEDS ORDERED: LORAZEPAM INJ 2 MG in SYRINGE 1 ML IV PRN (07:15)
--- NOTE | 2017-07-22 07:29 | DIAGNOSTIC IMAGING REPORT ---
ABDOMEN AND PELVIS CT WITH IV CONTRAST CT DOSE: 1803.05 mGy.cm HISTORY: Left flank pain. severe lower abd pain TECHNIQUE: Multiaxial CT images of the abdomen and pelvis were performed following the use of intravenous contrast. A dose lowering technique was utilized adhering to the principles of ALARA. COMPARISON STUDY: Chest, abdomen, and pelvis CTA 05/25/2014. FINDINGS: The lung bases are clear. Left hip prosthesis and right hip resurfacing resulting in metallic artifact of the deep pelvis. Hepatic steatosis. The gallbladder, spleen, adrenal glands, and pancreas are unremarkable. A stable 8 mm hypodense lesion within the right kidney. This is too small to characterize. An 11 mm hypodense lesion within the left kidney has significantly decreased in size. This previously measured 2.9 cm. Mild left perinephric edema and mild left hydroureteronephrosis. The dilated ureter extends into the deep pelvis. However, the most distal ureters obscured by the metallic artifact from the hip prostheses. Bladder is only partially visualized and appears underdistended. Small bilateral fat-containing inguinal hernias. No bowel wall thickening or obstruction. Normal appendix. IMPRESSION: 1. Mild left hydroureteronephrosis with the distended ureter extending into the deep pelvis. However, the distal ureter is obscured by the bilateral hip prostheses. Findings favor an obstructing distal stone, however, this cannot be confirmed on this study. Consider KUB and/or renal ultrasound for further evaluation. 2. No bowel wall thickening or obstruction. 3. Normal appendix. 4. Small bilateral fat-containing inguinal hernias. 5. Hepatic steatosis. Electronically signed by: Reinaldo Butler M.D. 07/22/2017 7:28 AM Dictated Date/Time: 07/22/2017 7:22 AM
[2017-07-22 08:08] VITALS: BP 152/99; PULSE 70; TEMP 36.7; O2SAT 96; Ht 177.8 cm; Wt 122.5 kg
--- NOTE | 2017-07-22 08:08 | NUR ---
A/ID: 51 year old male received from ED via wheelchair. c/o left abdominal pain. Will medicate when ordered, see EMAR. Patient oriented to room and call system.
[2017-07-22] MEDS ORDERED: IV FLUIDS COMPLETED PRN (08:15)
[2017-07-22] MEDS: HYDROmorphone INJ 0.5 MG/0.5 ML SYR IV PRN ×2 (08:27→13:42)
[2017-07-22] MEDS: MULTI-VITAMIN INFUSION INJ 10 ML, THIAMINE HCL INJ 100 MG, FoLIC ACID INJ 1 MG in SODIU... IV SCH (08:29)
[2017-07-22] MEDS: LISINOPRIL 10 MG TAB PO SCH (08:35)
[2017-07-22] MEDS: FLUOXETINE HCL 20 MG CAP PO SCH (08:35)
[2017-07-22] MEDS: CHLORDIAZEPOXIDE 10 MG CAP PO SCH ×3 (08:37→21:32)
[2017-07-22 08:59] VITALS: O2SAT 96
--- NOTE | 2017-07-22 09:16 | Urology Consultation ---
History General Date of Service: Jul 22, 2017. Chief Complaint: LLQ abdominal pain Primary Care Physician: Carlso Nuñez III, CRNP Pt seen a urologist before?: No History of Present Illness 51 yo male presents to [facility] with c/o sudden onset LLQ abdominal pain accompanied by n/v that started yesterday. He reports the pain was accompanied with "dark urine," frequency, and difficulty voiding. PVR today is 36ml. He is a smoker. No previous hx of stones. He also reports 2-3 weeks of intermittent RLQ/groin pain that felt as though he had a "hole" in the are with release of gas." This has been accompanied by blood in the stool. CT scan showing some left hydro. ? stone not well visualized d/t artifact from b /l THR. KUB after CT showing dilation of the left ureter to the level of the bladder without stone. He is afebrile. White count and Cr are normal. The pt reports his pain has improved this morning. The pt has a hx of heavy alcohol abuse and depression with previous suicide attempts. Imaging Imaging: CT, KUB Laboratory Last 24 Hours Test 07/22/17 04:05 07/22/17 04:15 07/22/17 04:19 07/22/17 07:30 Urine Color YELLOW Urine Appearance CLOUDY Urine pH 5.0 Urine Specific [place] 1.030 Urine Protein NEG Urine Glucose (UA) NEG Urine Ketones NEG Urine Occult Blood 3+ Urine Nitrite NEG Urine Bilirubin NEG Urine Urobilinogen NEG Urine Leukocyte Esterase NEG Urine WBC (Auto) 1-5 /hpf Urine RBC (Auto) 10-30 /hpf Urine Hyaline Casts (Auto) 1-5 /lpf Urine Epithelial Cells (Auto) 0-5 /lpf Urine Bacteria (Auto) NEG White Blood Count 8.72 K/uL Red Blood Count 4.44 M/uL Hemoglobin 14.7 g/dL Hematocrit 41.6 % Mean Corpuscular Volume 93.7 fL Mean Corpuscular Hemoglobin 33.1 pg Mean Corpuscular Hemoglobin Concent 35.3 g/dl Platelet Count 219 K/uL Mean Platelet Volume 9.6 fL Neutrophils (%) (Auto) 67.4 % Lymphocytes (%) (Auto) 24.1 % Monocytes (%) (Auto) 5.5 % Eosinophils (%) (Auto) 2.4 % Basophils (%) (Auto) 0.5 % Neutrophils # (Auto) 5.88 K/uL Lymphocytes # (Auto) 2.10 K/uL Monocytes # (Auto) 0.48 K/uL Eosinophils # (Auto) 0.21 K/uL Basophils # (Auto) 0.04 K/uL RDW Standard Deviation 46.3 fL RDW Coefficient of Variation 13.4 % Immature Granulocyte % (Auto) 0.1 % Immature Granulocyte # (Auto) 0.01 K/uL Prothrombin Time 10.0 SECONDS Prothromb Time International Ratio 1.0 Activated Partial Thromboplast Time 26.0 SECONDS Partial Thromboplastin Ratio 1.0 Sodium Level 139 mmol/L Potassium Level 3.9 mmol/L Chloride Level 106 mmol/L Carbon Dioxide Level 25 mmol/L Anion Gap 8.0 mmol/L 15.0 mmol/L Blood Urea Nitrogen 24 mg/dl Creatinine 1.13 mg/dl Est Creatinine Clear Calc Drug Dose 99.2 ml/min Estimated GFR () 85.5 Estimated GFR (Non- 73.8 BUN/Creatinine Ratio 21.4 Random Glucose 124 mg/dl Bedside Lactic Acid Venous 2.44 mmol/L Calcium Level 9.8 mg/dl Total Bilirubin 0.5 mg/dl Direct Bilirubin 0.1 mg/dl Aspartate Amino Transf (AST/SGOT) 59 U/L Alanine Aminotransferase (ALT/SGPT) 110 U/L Alkaline Phosphatase 97 U/L Total Protein 8.5 gm/dl Albumin 4.3 gm/dl Lipase 218 U/L Bedside Hemoglobin 14.3 g/dl Bedside Hematocrit 42 % Bedside Sodium 141 mEq/L Bedside Potassium 3.9 mEq/L Bedside Chloride 106 mEq/L Bedside Total CO2 25 mEq/l Bedside Blood Urea Nitrogen 25 mg/dl Bedside Creatinine 1.0 mg/dl Bedside Glucose (other) 131 mg/dl Bedside Ionized Calcium (Divina) 1.26 mmol/l Test 07/22/17 08:19 Problem List Medical Problems: (1) Alcohol abuse Status: Acute (2) Alcohol intoxication Status: Acute (3) Alcohol intoxication Status: Acute (4) Alcohol intoxication Status: Acute (5) Alcohol intoxication Status: Acute (6) Alcohol overdose Status: Acute (7) Alcohol overdose Status: Acute (8) Depression Status: Acute (9) Depression Status: Acute (10) Depression Status: Acute (11) Depression Status: Acute (12) Hypertension Status: Acute (13) Pharyngitis Status: Acute (14) Renal colic on left side Status: Acute (15) Suicidal ideation Status: Acute (16) Suicidal ideation Status: Acute Past History depression (with previous suicied attempts), hypertension, other (obesity, HPL, fatty liver, ETOH abuse) Past Surgical History: THR (bilateral ) Family History Blood clots Cancer Diabetes mellitus Heart disease Hypertension Social History Hx Tobacco Use In Past Year?: Yes Smoking: less than 1 pack/day (smokes 10 cigarettes per day ) Alcohol: daily (pt reports daily heavy drinking) Drug use: none Marital status: Housing status: lives alone Occupation status: unemployed Immunizations History of Influenza Vaccine: Yes History of Tetanus Vaccine?: Yes History of Pneumococcal: No History of Hepatitis B Vaccine: No History of MDRO No Allergies Coded Allergies: No Known Allergies (Verified , 07/22/17) Medications Home Medications: Home Meds and Scripts Medications Dose Route/Sig Max Daily Dose Days Date Category Caltrate 600 (Calcium Carbonate) 1,500 Mg Tab 1 Tab PO DAILY 07/22/17 Reported Prozac (Fluoxetine HCl) 40 Mg Cap 40 Mg PO DAILY 03/09/17 Reported Prinivil (Lisinopril) 10 Mg Tab 10 Mg PO DAILY 03/09/17 Reported Inpatient Medications: Current Inpatient Medications Medications (Trade) Dose Ordered Sig/Carlo Route Start Time Stop Time Status Last Admin Dose Admin Ioversol (Optiray 320) 100 ml UD PRN IV 07/22/17 05:00 07/26/17 04:59 Acetaminophen (Tylenol Tab) 650 mg Q4H PRN PO 07/22/17 06:45 08/21/17 06:44 Al Hydrox/Mg Hydrox/Simethicone (Maalox Max Susp) 15 ml Q4H PRN PO 07/22/17 06:45 08/21/17 06:44 Magnesium Hydroxide (Milk Of Magnesia Susp) 30 ml Q6H PRN PO 07/22/17 06:45 08/21/17 06:44 Polyethylene (Miralax Powder Packet) 17 gm DAILY PRN PO 07/22/17 06:45 08/21/17 06:44 Ondansetron HCl (Zofran Inj) 4 mg Q6H PRN IV 07/22/17 06:45 08/21/17 06:44 Fluoxetine HCl (Prozac Cap) 40 mg DAILY PO 07/22/17 09:00 08/21/17 08:59 07/22/17 08:35 40 MG Lisinopril (Zestril Tab) 10 mg DAILY PO 07/22/17 09:00 08/21/17 08:59 07/22/17 08:35 10 MG Multivitamins 10 ml/Thiamine HCl 100 mg/Folic Acid 1 mg/Sodium Chloride 1,011.2 ml @ 150 mls/ hr DAILY@0900 IV 07/22/17 09:00 08/21/17 08:59 07/22/17 08:29 150 MLS/HR Potassium Chloride/Dextrose/ Sod Cl 1,000 ml @ 100 mls/hr Q10H IV 07/22/17 15:30 07/23/17 11:29 Lorazepam (Ativan Inj) 2 mg Q2H PRN IV 07/22/17 07:00 08/21/17 06:59 Chlordiazepoxide (Librium Cap) 10 mg TID PO 07/22/17 09:00 08/21/17 08:59 07/22/17 08:37 10 MG Lorazepam 2 mg/ Syringe 2 ml @ 1 mls/min Q2H PRN IV 07/22/17 07:15 08/21/17 07:14 Hydromorphone HCl (Dilaudid Inj) 0.5 mg Q3H PRN IV 07/22/17 07:15 08/05/17 07:14 07/22/17 08:27 0.5 MG Miscellaneous (Iv Fluids Completed) 1 ea PRN PRN N/A 07/22/17 08:15 07/22/18 08:14 Review of Systems Review of Systems Constitutional: No fever, No chills Eyes: No double vision Neurological: No dizzy Endocrine: No excessive thirst Gastrointestinal: No abdominal pain, No nausea, No vomiting Cardiovascular: No chest pain Respiratory: No shortness of breath Skin: No rash Musculoskeletal: No back pain Male : No painful urination, No blood in urine Physical Exam Vital Signs: Vital Signs Past 12 Hours Date Time Temp Pulse Resp B/P (MAP) Pulse Ox O2 Delivery O2 Flow Rate FiO2 07/22/17 08:59 96 Room Air 07/22/17 08:08 36.7 70 18 152/99 96 Room Air 07/22/17 07:32 36.6 68 17 145/81 96 07/22/17 07:30 68 17 96 07/22/17 07:01 145/81 07/22/17 07:00 66 20 94 07/22/17 06:07 74 18 95 07/22/17 06:01 171/124 07/22/17 05:52 81 22 92 07/22/17 05:47 78 17 95 Room Air 07/22/17 05:32 83 21 91 07/22/17 05:31 180/126 07/22/17 05:17 84 15 95 07/22/17 05:12 82 19 98 07/22/17 05:02 193/96 07/22/17 04:37 90 18 96 07/22/17 04:32 79 19 98 07/22/17 04:31 207/140 07/22/17 04:28 78 07/22/17 04:27 74 20 97 Room Air 07/22/17 04:26 201/125 07/22/17 03:52 36.6 83 18 214/129 95 Room Air Physical Exam: General Appearance: no apparent distress, + obese Eyes: bilateral eyes normal inspection ENT: hearing grossly normal Neck: no JVD Respiratory/Chest: no respiratory distress, no accessory muscle use Cardiovascular: no JVD Extremities: normal inspection Neurologic/Psychiatric: alert, normal mood/affect, oriented x 3 Skin: normal color Assessment & Plan Assessment & Plan A/P: Left hydronephrosis, difficulty voiding Imaging reviewed with Dr. Rincon this morning. ? passed stone vs present stone vs chronic dilation of ureter or other obstruction. Will plan to observe the pt today. Supportive management with IVF, pain control, and Flomax. Will repeat labs and a KUB and renal u/s in the morning to check for persistent hydro vs stone. Strain all urine. He may be provided a diet today. NPO after midnight in the event he needs stent placement tomorrow. Will check a UC&S. Will check a cytology given his hx of smoking and ? gross hematuria. Thanks for the consult. Will continue to follow along with primary service. Pt seen in evening and appears to have passed a small stone . No further pain but sore. Repeat kub shows passage of contrast suggesting resolution of his stone or obstruction . Asked nurses to send stone for analysis
--- NOTE | 2017-07-22 09:45 | NUR ---
A/ID: Urine sent to lab as ordered, collected. Urine strained. Now yellow, clear. IV fluids continued as ordered. See EMAR.
[2017-07-22 10:22] LABS: HEP C IGG 13 YRS+OLDER_RFLX NEG (NEG)
[2017-07-22] MEDS ORDERED: INFLUENZA VIRUS QUAD VACCINE 0.5 ML SYR IM. ONE (12:00)
[2017-07-22] MEDS ORDERED: INFLUENZA ADMINISTRATION CHARGE ONE (12:00)
--- NOTE | 2017-07-22 13:29 | Hospitalist Progress Note ---
Hospitalist Progress Note Date of Service Jul 22, 2017. (Tammie Yadav ., PA-C) Subjective Pt evaluation today including: conversation w/ patient, physical exam, lab review, review of studies, review of inpatient medication list Patient resting in bed comfortably. L-sided abdominal pain has improved. +dysuria/suprapubic discomfort, hematuria. Eating and drinking OK. Pain notes 1 episode of melena a few weeks ago. Denies any further incidences. Had colonoscopy 10 years ago- recommend f/u w/ PCP for repeat scope. H&H is stable. Patient notes abdominal bulge when coughing/sneezing. No tenderness or pain. Quickly disappears. Small bilateral inguinal hernias noted on CT- recommended patient f/u w/ PCP Patient denies any fever, chills, sweats, lightheadedness, dizziness, vision changes, CP, palpitations, edema, SOB, wheezing, cough, nausea, vomiting, diarrhea, numbness/tingling, weakness, muscle/joint pain, anxiety/depression, active bleeding, or new skin discoloration/changes. (Tammie Yadav ., PA-C) Medications Current Inpatient Medications Medications (Trade) Dose Ordered Sig/Carlo Route Start Time Stop Time Status Last Admin Dose Admin Ioversol (Optiray 320) 100 ml UD PRN IV 07/22/17 05:00 07/26/17 04:59 Acetaminophen (Tylenol Tab) 650 mg Q4H PRN PO 07/22/17 06:45 08/21/17 06:44 Al Hydrox/Mg Hydrox/Simethicone (Maalox Max Susp) 15 ml Q4H PRN PO 07/22/17 06:45 08/21/17 06:44 Magnesium Hydroxide (Milk Of Magnesia Susp) 30 ml Q6H PRN PO 07/22/17 06:45 08/21/17 06:44 Polyethylene (Miralax Powder Packet) 17 gm DAILY PRN PO 07/22/17 06:45 08/21/17 06:44 Ondansetron HCl (Zofran Inj) 4 mg Q6H PRN IV 07/22/17 06:45 08/21/17 06:44 Fluoxetine HCl (Prozac Cap) 40 mg DAILY PO 07/22/17 09:00 08/21/17 08:59 07/22/17 08:35 40 MG Lisinopril (Zestril Tab) 10 mg DAILY PO 07/22/17 09:00 08/21/17 08:59 07/22/17 08:35 10 MG Multivitamins 10 ml/Thiamine HCl 100 mg/Folic Acid 1 mg/Sodium Chloride 1,011.2 ml @ 150 mls/ hr DAILY@0900 IV 07/22/17 09:00 08/21/17 08:59 07/22/17 08:29 150 MLS/HR Potassium Chloride/Dextrose/ Sod Cl 1,000 ml @ 100 mls/hr Q10H IV 07/22/17 15:30 07/23/17 11:29 Lorazepam (Ativan Inj) 2 mg Q2H PRN IV 07/22/17 07:00 08/21/17 06:59 Chlordiazepoxide (Librium Cap) 10 mg TID PO 07/22/17 09:00 08/21/17 08:59 07/22/17 08:37 10 MG Lorazepam 2 mg/ Syringe 2 ml @ 1 mls/min Q2H PRN IV 07/22/17 07:15 08/21/17 07:14 Hydromorphone HCl (Dilaudid Inj) 0.5 mg Q3H PRN IV 07/22/17 07:15 08/05/17 07:14 07/22/17 08:27 0.5 MG Miscellaneous (Iv Fluids Completed) 1 ea PRN PRN N/A 07/22/17 08:15 07/22/18 08:14 Tamsulosin HCl (Flomax Cap) 0.4 mg HS PO 07/22/17 21:00 08/21/17 20:59 (Tammie Yadav, MARYC) Objective Vital Signs Date Time Temp Pulse Resp B/P (MAP) Pulse Ox O2 Delivery O2 Flow Rate FiO2 07/22/17 08:59 96 Room Air 07/22/17 08:08 36.7 70 18 152/99 96 Room Air 07/22/17 07:32 36.6 68 17 145/81 96 07/22/17 07:30 68 17 96 07/22/17 07:01 145/81 07/22/17 07:00 66 20 94 07/22/17 06:07 74 18 95 07/22/17 06:01 171/124 07/22/17 05:52 81 22 92 07/22/17 05:47 78 17 95 Room Air 07/22/17 05:32 83 21 91 07/22/17 05:31 180/126 07/22/17 05:17 84 15 95 07/22/17 05:12 82 19 98 07/22/17 05:02 193/96 07/22/17 04:37 90 18 96 07/22/17 04:32 79 19 98 07/22/17 04:31 207/140 07/22/17 04:28 78 07/22/17 04:27 74 20 97 Room Air 07/22/17 04:26 201/125 07/22/17 03:52 36.6 83 18 214/129 95 Room Air (Tammie Yadav, SEJAL-C) Physical Exam General Appearance: no apparent distress, + obese Eyes: normal inspection, PERRL ENT: hearing grossly normal Neck: supple Respiratory/Chest: lungs clear, no respiratory distress, no accessory muscle use Cardiovascular: regular rate, rhythm Abdomen: normal bowel sounds, non tender, soft, + pertinent finding (no CVA tenderness ) Extremities: no pedal edema, no calf tenderness Neurologic/Psychiatric: alert, normal mood/affect, oriented x 3 Skin: normal color, warm/dry, no rash (Tammie Yadav, SEJAL-C) Laboratory Results Last 24 Hours Test 07/22/17 04:05 07/22/17 04:15 07/22/17 04:19 07/22/17 07:30 Urine Color YELLOW Urine Appearance CLOUDY Urine pH 5.0 Urine Specific [place] 1.030 Urine Protein NEG Urine Glucose (UA) NEG Urine Ketones NEG Urine Occult Blood 3+ Urine Nitrite NEG Urine Bilirubin NEG Urine Urobilinogen NEG Urine Leukocyte Esterase NEG Urine WBC (Auto) 1-5 /hpf Urine RBC (Auto) 10-30 /hpf Urine Hyaline Casts (Auto) 1-5 /lpf Urine Epithelial Cells (Auto) 0-5 /lpf Urine Bacteria (Auto) NEG White Blood Count 8.72 K/uL Red Blood Count 4.44 M/uL Hemoglobin 14.7 g/dL Hematocrit 41.6 % Mean Corpuscular Volume 93.7 fL Mean Corpuscular Hemoglobin 33.1 pg Mean Corpuscular Hemoglobin Concent 35.3 g/dl Platelet Count 219 K/uL Mean Platelet Volume 9.6 fL Neutrophils (%) (Auto) 67.4 % Lymphocytes (%) (Auto) 24.1 % Monocytes (%) (Auto) 5.5 % Eosinophils (%) (Auto) 2.4 % Basophils (%) (Auto) 0.5 % Neutrophils # (Auto) 5.88 K/uL Lymphocytes # (Auto) 2.10 K/uL Monocytes # (Auto) 0.48 K/uL Eosinophils # (Auto) 0.21 K/uL Basophils # (Auto) 0.04 K/uL RDW Standard Deviation 46.3 fL RDW Coefficient of Variation 13.4 % Immature Granulocyte % (Auto) 0.1 % Immature Granulocyte # (Auto) 0.01 K/uL Prothrombin Time 10.0 SECONDS Prothromb Time International Ratio 1.0 Activated Partial Thromboplast Time 26.0 SECONDS Partial Thromboplastin Ratio 1.0 Sodium Level 139 mmol/L Potassium Level 3.9 mmol/L Chloride Level 106 mmol/L Carbon Dioxide Level 25 mmol/L Anion Gap 8.0 mmol/L 15.0 mmol/L Blood Urea Nitrogen 24 mg/dl Creatinine 1.13 mg/dl Est Creatinine Clear Calc Drug Dose 99.2 ml/min Estimated GFR () 85.5 Estimated GFR (Non- 73.8 BUN/Creatinine Ratio 21.4 Random Glucose 124 mg/dl Bedside Lactic Acid Venous 2.44 mmol/L Calcium Level 9.8 mg/dl Total Bilirubin 0.5 mg/dl Direct Bilirubin 0.1 mg/dl Aspartate Amino Transf (AST/SGOT) 59 U/L Alanine Aminotransferase (ALT/SGPT) 110 U/L Alkaline Phosphatase 97 U/L Total Protein 8.5 gm/dl Albumin 4.3 gm/dl Lipase 218 U/L Bedside Hemoglobin 14.3 g/dl Bedside Hematocrit 42 % Bedside Sodium 141 mEq/L Bedside Potassium 3.9 mEq/L Bedside Chloride 106 mEq/L Bedside Total CO2 25 mEq/l Bedside Blood Urea Nitrogen 25 mg/dl Bedside Creatinine 1.0 mg/dl Bedside Glucose (other) 131 mg/dl Bedside Ionized Calcium (Divina) 1.26 mmol/l Hepatitis B Surface Antigen NEG Hepatitis C Antibody NEG (Tammie Yadav PA-C) Assessment and Plan 51 y/o M Hx ETOH abuse, HTN, HPL, depression with previous suicide attempts. Pt presents with acute onset of lower abdominal pain, mostly in his LLQ. He denies nausea/vomiting, fevers or rigors. He describes urinary frequency. A CT abdomen was obtained in the ER and revealed L hydronephrosis with perinephric stranding. No discrete calculus was observed, however, the finding suggest a possible obstruction at the L UVJ. L Hydronephrosis: - Admitted to med/surg - Flomax 0.4 mg HS, strain urine, IVF @ 100 ml/hr - IV Dilaudid PRN for pain management - Urology consulted, appreciate recommendations -- Repeat labs and a KUB and renal u/s in the morning to check for persistent hydro vs stone -- NPO after midnight in the event he needs stent placement tomorrow -- Check a UC&S -- Check a cytology given his hx of smoking and ? gross hematuria Bilateral small inguinal hernias- f/u outpatient w/ PCP Episodes of melena- currently resolved: - H&H- STABLE - Recommend f/u outpatient for repeat colonoscopy ETOH abuse: Withdrawal protocol- daily banana bag ordered, TID Librium, PRN Ativan, IVF containing GLU HTN: Continue Lisinopril 10 mg daily HPL: Following w/ PCP- managing through healthy diet/exercise Anxiety, depression: Prozac 40 mg daily Tobacco use: Smoking cessation counselling DVT prophylaxis: SCDs, ambulation Code Status: LEVEL I, FULL Dispo: Discharge to home once medically stable- no discharge needs anticipated (Tammie Yadav ., PA-C) I agree with PA assessment and plan and have seen and examined pt myself Pt in mild distress States pain reduced from last night, located LLQ VSS Labs reviewed CT reviewed Noted hydronephrosis Urology consulted ?passed stone Cont IVF and flomax Strain all urine No indication for further intervention at this time (Rickey Batista D.O.)
--- NOTE | 2017-07-22 14:50 | DIAGNOSTIC IMAGING REPORT ---
KUB HISTORY: Follow-up study in a patient with left-sided hydroureteronephrosis left hydro COMPARISON: KUB of same day at 6:29 AM, CT abdomen and pelvis 07/22/2017. FINDINGS: The bowel gas pattern is non-obstructive. There is no organomegaly. Minimal retained contrast within the urinary bladder lumen. No definite nephrolithiasis or ureteral calculi identified. Probable phleboliths of the far lateral left hemipelvis. No pneumoperitoneum or pneumatosis. No fracture. Bilateral hip arthroplasties. IMPRESSION: No renal or ureteral stones identified. Electronically signed by: Erwin Rm M.D. 07/22/2017 2:48 PM Dictated Date/Time: 07/22/2017 2:46 PM
--- NOTE | 2017-07-22 15:10 | NUR ---
A/ID: Continue to strain urine. To and return from xray via wheelchair for KUB.
[2017-07-22 15:42] VITALS: BP 136/93; PULSE 68; TEMP 36.7; O2SAT 96
--- NOTE | 2017-07-22 16:00 | NUR ---
OBS: Patient is alert and oriented. Ambulating in room independently. IVF infusing per MD order. Straining all urine. Tolerating diet. Patient understands NPO after midnight in event surgical intervention would be needed.
[2017-07-22] MEDS: D5NSS + 20MEQ KCL 1,000 ML IV SCH (17:19)
--- NOTE | 2017-07-22 20:00 | NUR ---
OBS: No new needs identified. Patient reporting pain at tolerable level. Very small stone sent for analysis. Will continue to monitor.
[2017-07-22] MEDS ORDERED: TAMSULOSIN HCL 0.4 MG CAP PO SCH (21:00)
--- NOTE | 2017-07-22 21:37 | NUR ---
A: Patient declined flu vaccine tonight, stated he would be open to it tomorrow.
[2017-07-22 23:10] VITALS: BP 155/88; PULSE 62; TEMP 36.7; O2SAT 97
[2017-07-23] MEDS: D5NSS + 20MEQ KCL 1,000 ML IV SCH (00:28)
--- NOTE | 2017-07-23 04:00 | NUR ---
OBS: Assessment unchanged. Pt alert and oriented X4. VS WNL. Pt currently NPO at midnight/except meds. OOB with 1 assist. IVF infusing per MD orders. BS active, passing gas. Voiding clear/yellow urine in urinal, straining urine. No stones so far this shift. Pt reports there was a stone earlier in the day. Denies any pain or nausea at this time. Discharge plans uncertain, will continue to monitor.
[2017-07-23 07:28] VITALS: BP 160/107; PULSE 61; TEMP 36.5; O2SAT 96
[2017-07-23] MEDS: LISINOPRIL 10 MG TAB PO SCH (07:36)
--- NOTE | 2017-07-23 08:00 | NUR ---
OBS: A&Ox4, medicated with PO Tylenol for headache. Lungs clear on room air. Patient remains NPO except meds for possible stent placement. Voiding without difficulty. Patient is independent in room, encouraged to ring for assistance as needed. IV fluids infusing per MD order, receiving intermittent banana bag. Call mccabe in reach, encouraged to ring for assistance. Will monitor for change.
--- NOTE | 2017-07-23 08:36 | DIAGNOSTIC IMAGING REPORT ---
KUB CLINICAL HISTORY: Left-sided hydronephrosis COMPARISON STUDY: 07/22/2017 FINDINGS: There are postsurgical changes of a right hip resurfacing procedure and left total hip arthroplasty. There is no pathologic bowel dilatation. No urinary tract calculi are visualized. IMPRESSION: 1. No evidence of pathologic bowel dilatation 2. No urinary tract calculi are visualized on conventional radiographic imaging Electronically signed by: Cyril Thakkar M.D. 07/23/2017 8:35 AM Dictated Date/Time: 07/23/2017 8:34 AM
--- NOTE | 2017-07-23 08:45 | DIAGNOSTIC IMAGING REPORT ---
EXAMINATION: RENAL ULTRASOUND CLINICAL HISTORY: Left-sided hydronephrosis COMPARISON STUDY: CT scan dated 07/22/2017 FINDINGS: The right kidney measures 11.5 cm. The left kidney measures 11.4 cm. There is no evidence of hydronephrosis. There is an 11 mm left renal cyst The bladder was nearly absent at the time scanning. Neither ureteral jet was visualized. There is increased hepatic echogenicity consistent with hepatic steatosis IMPRESSION : 1. 11 mm left renal cyst 2. No evidence of hydronephrosis 3. Hepatic steatosis Electronically signed by: Cyril Thakkar M.D. 07/23/2017 8:43 AM Dictated Date/Time: 07/23/2017 8:41 AM
[2017-07-23 08:53] LABS: HEPATITIS A IGM TC 51813E NON-REACTIVE (NON-REACTIVE); HEPATITIS B CORE IGM TC51854R NON-REACTIVE (NON-REACTIVE)
[2017-07-23 09:13] LABS: BASO % 0.5 %; BASO ABS # 0.03 K/uL (0-0.2); EOS % 3.2 %; EOS ABS # 0.19 K/uL (0-0.5); HEMATOCRIT 37.5 % (42-52); HEMOGLOBIN 12.9 g/dL (14.0-18.0); IG# 0.02 K/uL (0.00-0.02); LYMPH % 33.7 %; LYMPH ABS # 2.02 K/uL (1.2-3.4); MEAN CELL VOLUME 94.9 fL (80-100); MEAN CORPUSCULAR HEMOGLOBIN 32.7 pg (25-34); MEAN CORPUSCULAR HGB CONC 34.4 g/dl (32-36); MEAN PLATELET VOLUME 9.6 fL (7.4-10.4); MONO % 7.2 %; MONO ABS # 0.43 K/uL (0.11-0.59); NEUT % 55.1 %; PLATELET COUNT 173 K/uL (130-400); RED CELL DISTRIBUTION WIDTH CV 13.6 % (11.5-14.5); RED CELL DISTRIBUTION WIDTH SD 47.5 fL (36.4-46.3); WHITE BLOOD COUNT 5.99 K/uL (4.8-10.8)
[2017-07-23] MEDS: CHLORDIAZEPOXIDE 10 MG CAP PO SCH (09:52)
[2017-07-23] MEDS: FLUOXETINE HCL 20 MG CAP PO SCH (09:52)
[2017-07-23 09:53] LABS: CREATININE 0.86 mg/dl (0.60-1.40); POTASSIUM 3.9 mmol/L (3.5-5.1)
[2017-07-23] MEDS: MULTI-VITAMIN INFUSION INJ 10 ML, THIAMINE HCL INJ 100 MG, FoLIC ACID INJ 1 MG in SODIU... IV SCH (09:57)
[2017-07-23 11:00] VITALS: BP 154/95
--- NOTE | 2017-07-23 12:00 | NUR ---
OBS: Assessment remains unchanged. Patient denies pain. Multivitamin (banana) infusion bag is infusing now. Patient ordered a diet, tolerating well. Plan is to discharge patient home today, awaiting orders at this time. Call mccabe in reach, encouraged to ring for assistance. Will continue to monitor for changes.
[2017-07-23] MEDS ORDERED: FLM4 PO (12:30)
--- NOTE | 2017-07-23 12:30 | Progress Note ---
Subjective Date of Service: Jul 23, 2017. Subjective Pt evaluation today including: conversation w/ patient, physical exam, chart review, lab review, review of studies Pain: Controlled, Resolved PO Intake: Good Voiding: no voiding problems Problem List Medical Problems: (1) Alcohol abuse Status: Acute (2) Alcohol intoxication Status: Acute (3) Alcohol intoxication Status: Acute (4) Alcohol intoxication Status: Acute (5) Alcohol intoxication Status: Acute (6) Alcohol overdose Status: Acute (7) Alcohol overdose Status: Acute (8) Depression Status: Acute (9) Depression Status: Acute (10) Depression Status: Acute (11) Depression Status: Acute (12) Hypertension Status: Acute (13) Pharyngitis Status: Acute (14) Renal colic on left side Status: Acute (15) Suicidal ideation Status: Acute (16) Suicidal ideation Status: Acute Review of Systems All Other Systems: Reviewed and Negative Objective Vital Signs Date Time Temp Pulse Resp B/P (MAP) Pulse Ox O2 Delivery O2 Flow Rate FiO2 07/23/17 11:00 154/95 (114) 07/23/17 07:28 36.5 61 16 160/107 (124) 96 Room Air 07/23/17 07:20 Room Air 07/23/17 00:25 Room Air 07/22/17 23:10 36.7 62 18 155/88 (110) 97 Room Air 07/22/17 15:42 36.7 68 18 136/93 (107) 96 Room Air 07/22/17 15:30 Room Air Physical Exam General Appearance: WD/WN, no apparent distress Eyes: normal inspection ENT: normal ENT inspection Neck: supple, no JVD Respiratory/Chest: no respiratory distress, no accessory muscle use Cardiovascular: regular rate, rhythm Abdomen: non tender, soft Extremities: normal range of motion, non-tender Neurologic/Psychiatric: frameman II-XII nml as tested, no motor/sensory deficits, alert, normal mood/affect, oriented x 3 Skin: normal color, warm/dry Lymphatic: no adenopathy Laboratory Results Last 24 Hours Test 07/23/17 08:54 White Blood Count 5.99 K/uL Red Blood Count 3.95 M/uL Hemoglobin 12.9 g/dL Hematocrit 37.5 % Mean Corpuscular Volume 94.9 fL Mean Corpuscular Hemoglobin 32.7 pg Mean Corpuscular Hemoglobin Concent 34.4 g/dl Platelet Count 173 K/uL Mean Platelet Volume 9.6 fL Neutrophils (%) (Auto) 55.1 % Lymphocytes (%) (Auto) 33.7 % Monocytes (%) (Auto) 7.2 % Eosinophils (%) (Auto) 3.2 % Basophils (%) (Auto) 0.5 % Neutrophils # (Auto) 3.30 K/uL Lymphocytes # (Auto) 2.02 K/uL Monocytes # (Auto) 0.43 K/uL Eosinophils # (Auto) 0.19 K/uL Basophils # (Auto) 0.03 K/uL RDW Standard Deviation 47.5 fL RDW Coefficient of Variation 13.6 % Immature Granulocyte % (Auto) 0.3 % Immature Granulocyte # (Auto) 0.02 K/uL Sodium Level 140 mmol/L Potassium Level 3.9 mmol/L Chloride Level 107 mmol/L Carbon Dioxide Level 28 mmol/L Anion Gap 6.0 mmol/L Blood Urea Nitrogen 14 mg/dl Creatinine 0.86 mg/dl Est Creatinine Clear Calc Drug Dose 130.4 ml/min Estimated GFR () 114.7 Estimated GFR (Non- 99.0 BUN/Creatinine Ratio 15.8 Random Glucose 111 mg/dl Calcium Level 9.0 mg/dl Assessment and Plan 1. Hydronephrosis 2. Dysuria Likely passed stone. KUB shows no obvious stone. Pain resolved. Eating without issues. Greatly improved. Hematuria resolved. Will need outpatient workup and DEEPIKA in 2-3 weeks to reassess and plan to follow and assess. Recommend pain control and hydration. Call if any fevers, Nausea, or severe pain.
[2017-07-23] MEDS ORDERED: CHLO10CA7 PO (12:44)
--- NOTE | 2017-07-23 12:48 | Discharge Instructions ---
Discharge Instructions Date of Service Jul 23, 2017. Admission Reason for Admission: Hydronephrosis W/ Obstructing Calculus Discharge Discharge Diagnosis / Problem: Hydronephrosis secondary to obstructing calculus Discharge Goals Goal(s): Decrease discomfort, Improve function, Learn about illness, Diagnostic testing, Therapeutic intervention, Prevent Disease Progression Activity Recommendations Activity Limitations: resume your previous activity . Instructions / Follow-Up Instructions / Follow-Up You were admitted to [facility] due to left sided abdominal pain. You were found to have a kidney stone. You were treated with IV fluids and pain medication. You are now stable for discharge. Urology- Dr. Barnes recommendations: Flomax 0.4 mg at night x1 week Follow-up within the next 2-3 weeks You may take Librium 10 mg once daily as need for alcohol withdrawal symptoms Symptoms such as: restlessness, shakiness, sweating, anxiety, nervousness, palpitations, insomnia, headache, nausea/vomiting If you begin to experience withdrawal symptoms or any other concerning symptoms, please seek medical attention VIDA IT IS HIGHLY RECOMMENDED THAT YOU DO NOT START DRINKING AGAIN!! Resume all other regular home medications as prescribed. FOLLOW-UPS: Please follow-up with your PCP within 5-7 days Please follow-up with Urology within 2-3 weeks Please follow-up/keep all of your subspecialty appointments Current Hospital Diet Patient's current hospital diet: AHA Diet (Heart Healthy) Discharge Diet Recommended Diet: AHA Diet (Heart Healthy) Pending Studies Studies pending at discharge: no Medical Emergencies . Who to Call and When: Medical Emergencies: If at any time you feel your situation is an emergency, please call 911 immediately. . Non-Emergent Contact Non-Emergency issues call your: Primary Care Provider Call Non-Emergent contact if: you have a fever, your pain is not controlled, your pain is worsening, your pain is unusual for you, your pain is concerning you, you have any medication questions . . "Provider Documentation" section prepared by Tammie Yadav. . VTE Core Measure Inpt VTE Proph given/why not?: SCD's
--- NOTE | 2017-07-23 12:50 | NUR ---
authorization nurse [facility]: Follow up appointment arranged with Carlos GARBER on ThursdayJuly 31 at 10:20 am. This info was added to the DC instructions.
--- NOTE | 2017-07-23 12:51 | Discharge Summary ---
Discharge Summary Date of Service Jul 23, 2017. Discharge Summary Admission Date: Jul 22, 2017 at 06:39 Discharge Date: Jul 23, 2017 Discharge Disposition: Home Principal Diagnosis: Left hydronephrosis, Nephrolithiasis Problems/Secondary Diagnoses: Bilateral small inguinal hernias Episodes of melena ETOH abuse HTN HPL Anxiety depression with previous suicide attempts Tobacco use Fatty liver Obesity Immunizations: Have You Had Influenza Vaccine: Yes History of Tetanus Vaccine?: Yes History of Pneumococcal: No History of Hepatitis B Vaccine: No Procedures: ABDOMEN AND PELVIS CT WITH IV CONTRAST CT DOSE: 1803.05 mGy.cm HISTORY: Left flank pain. severe lower abd pain TECHNIQUE: Multiaxial CT images of the abdomen and pelvis were performed following the use of intravenous contrast. A dose lowering technique was utilized adhering to the principles of ALARA. COMPARISON STUDY: Chest, abdomen, and pelvis CTA 05/25/2014. FINDINGS: The lung bases are clear. Left hip prosthesis and right hip resurfacing resulting in metallic artifact of the deep pelvis. Hepatic steatosis. The gallbladder, spleen, adrenal glands, and pancreas are unremarkable. A stable 8 mm hypodense lesion within the right kidney. This is too small to characterize. An 11 mm hypodense lesion within the left kidney has significantly decreased in size. This previously measured 2.9 cm. Mild left perinephric edema and mild left hydroureteronephrosis. The dilated ureter extends into the deep pelvis. However, the most distal ureters obscured by the metallic artifact from the hip prostheses. Bladder is only partially visualized and appears underdistended. Small bilateral fat-containing inguinal hernias. No bowel wall thickening or obstruction. Normal appendix. IMPRESSION: 1. Mild left hydroureteronephrosis with the distended ureter extending into the deep pelvis. However, the distal ureter is obscured by the bilateral hip prostheses. Findings favor an obstructing distal stone, however, this cannot be confirmed on this study. Consider KUB and/or renal ultrasound for further evaluation. 2. No bowel wall thickening or obstruction. 3. Normal appendix. 4. Small bilateral fat-containing inguinal hernias. 5. Hepatic steatosis. Electronically signed by: Reinaldo Butler M.D. 07/22/2017 7:28 AM Dictated Date/Time: 07/22/2017 7:22 AM The status of this report is Signed. Draft = Not yet reviewed or approved by Radiologist. Signed = Reviewed and approved by Radiologist. KUB CLINICAL HISTORY: left renal colic COMPARISON STUDY: CT scan dated 07/22/2017 FINDINGS: There is contrast within the collecting systems and ureters secondary to a prior CT scan. There is mild left-sided hydronephrosis and hydroureter down to the level of the left ureterovesical junction. There are postsurgical changes of a total left hip arthroplasty and right hip resurfacing procedure. There is no pathologic bowel dilatation. IMPRESSION: Mild left-sided hydronephrosis and hydroureter down to the level of the left ureterovesical junction. Electronically signed by: Cyril Thakkar M.D. 07/22/2017 6:50 AM Dictated Date/Time: 07/22/2017 6:49 AM The status of this report is Signed. Draft = Not yet reviewed or approved by Radiologist. Signed = Reviewed and approved by Radiologist. KUB HISTORY: Follow-up study in a patient with left-sided hydroureteronephrosis left hydro COMPARISON: KUB of same day at 6:29 AM, CT abdomen and pelvis 07/22/2017. FINDINGS: The bowel gas pattern is non-obstructive. There is no organomegaly. Minimal retained contrast within the urinary bladder lumen. No definite nephrolithiasis or ureteral calculi identified. Probable phleboliths of the far lateral left hemipelvis. No pneumoperitoneum or pneumatosis. No fracture. Bilateral hip arthroplasties. IMPRESSION: No renal or ureteral stones identified. Electronically signed by: Erwin Rm M.D. 07/22/2017 2:48 PM Dictated Date/Time: 07/22/2017 2:46 PM The status of this report is Signed. Draft = Not yet reviewed or approved by Radiologist. Signed = Reviewed and approved by Radiologist. EXAMINATION: RENAL ULTRASOUND CLINICAL HISTORY: Left-sided hydronephrosis COMPARISON STUDY: CT scan dated 07/22/2017 FINDINGS: The right kidney measures 11.5 cm. The left kidney measures 11.4 cm. There is no evidence of hydronephrosis. There is an 11 mm left renal cyst The bladder was nearly absent at the time scanning. Neither ureteral jet was visualized. There is increased hepatic echogenicity consistent with hepatic steatosis IMPRESSION : 1. 11 mm left renal cyst 2. No evidence of hydronephrosis 3. Hepatic steatosis Electronically signed by: Cyril Thakkar M.D. 07/23/2017 8:43 AM Dictated Date/Time: 07/23/2017 8:41 AM The status of this report is Signed. Draft = Not yet reviewed or approved by Radiologist. Signed = Reviewed and approved by Radiologist. KUB CLINICAL HISTORY: Left-sided hydronephrosis COMPARISON STUDY: 07/22/2017 FINDINGS: There are postsurgical changes of a right hip resurfacing procedure and left total hip arthroplasty. There is no pathologic bowel dilatation. No urinary tract calculi are visualized. IMPRESSION: 1. No evidence of pathologic bowel dilatation 2. No urinary tract calculi are visualized on conventional radiographic imaging Electronically signed by: Cyril Thakkar M.D. 07/23/2017 8:35 AM Dictated Date/Time: 07/23/2017 8:34 AM The status of this report is Signed. Draft = Not yet reviewed or approved by Radiologist. Signed = Reviewed and approved by Radiologist. Consultations: Urology Medication Reconciliation New Medications: Chlordiazepoxide (Librium) 10 Mg Cap 10 MG PO DAILY PRN for Anxiety/Agitation for 3 Days, #3 CAP Tamsulosin HCl (Tamsulosin HCl) 0.4 Mg Cap 0.4 MG PO HS for 7 Days, #7 CAP Continued Medications: Calcium Carbonate (Caltrate 600) 1,500 Mg Tab 1 TAB PO DAILY Fluoxetine (Prozac) 40 Mg Cap 40 MG PO DAILY, CAP Lisinopril (Prinivil) 10 Mg Tab 10 MG PO DAILY, TAB Referrals At Discharge Follow up Referrals: Family Practice Referral - Within 1-2 Weeks with Carlos Nuñez III, CRNP Urologist Referral - Within 2 Weeks with Aj Barnes D.O. Discharge Exam Review of Systems: Constitutional: No fever, No chills, No sweats, No weakness, No fatigue Eyes: No worsening of vision ENT: No hearing loss Respiratory: No cough, No shortness of breath, No hemoptysis Cardiovascular: No chest pain, No edema, No palpitations Abdomen: No pain, No nausea, No vomiting, No diarrhea, No constipation Musculoskeletal: No joint pain, No muscle pain, No swelling, No calf pain Genitourinary - Male: No hematuria, No dysuria Neurologic: No weakness, No numbness/tingling Psychiatric: No depression symptoms, No anxiety Endocrine: No fatigue Hematologic / Lymphatic: No abnormal bleeding/bruising Integumentary: No rash, No itch, No new/changing skin lesions Physical Exam: General Appearance: no apparent distress, + obese Eyes: normal inspection, PERRL ENT: hearing grossly normal Neck: supple Respiratory/Chest: lungs clear, no respiratory distress, no accessory muscle use Cardiovascular: regular rate, rhythm Abdomen / GI: normal bowel sounds, non tender, soft Extremities: no calf tenderness, no pedal edema Neurologic/Psychiatric: alert, normal mood/affect, oriented x 3 Skin: normal color, warm/dry, no rash Hospital Course Admission H&P: 51 y/o M Hx ETOH abuse, HTN, HPL, depression with previous suicide attempts. Pt presents with acute onset of lower abdominal pain, mostly in his LLQ. He denies nausea/vomiting, fevers or rigors. He describes urinary frequency. A CT abdomen was obtained in the ER and revealed L hydronephrosis with perinephric stranding. No discrete calculus was observed, however, the finding suggest a possible obstruction at the L UVJ. Physical Exam Vital Signs Date Time Temp Pulse Resp B/P (MAP) Pulse Ox O2 Delivery O2 Flow Rate FiO2 07/22/17 06:07 74 18 95 07/22/17 06:01 171/124 07/22/17 05:52 81 22 92 07/22/17 05:47 78 17 95 Room Air 07/22/17 05:32 83 21 91 07/22/17 05:31 180/126 07/22/17 05:17 84 15 95 07/22/17 05:12 82 19 98 07/22/17 05:02 193/96 07/22/17 04:37 90 18 96 07/22/17 04:32 79 19 98 07/22/17 04:31 207/140 07/22/17 04:28 78 07/22/17 04:27 74 20 97 Room Air 07/22/17 04:26 201/125 07/22/17 03:52 36.6 83 18 214/129 95 Room Air General Appearance: WD/WN, no apparent distress Head: normocephalic Eyes: normal inspection ENT: normal ENT inspection, hearing grossly normal Neck: supple, no adenopathy, thyroid normal, no JVD Respiratory/Chest: chest non-tender, lungs clear, normal breath sounds Cardiovascular: regular rate, rhythm, no edema, no gallop Abdomen/GI: normal bowel sounds, + pertinent finding (mild L flank and LLQ tenderness to palpation) Neurologic/Psych: office services clerk II-XII nml as tested, no motor/sensory deficits, alert, oriented x 3 Skin: normal color, warm/dry Hospital Course: L hydronephrosis, secondary to obstructing calculus- RESOLVED: - Admitted to med/surg - Flomax 0.4 mg HS, strain urine, IVF @ 100 ml/hr - Stone passed- sent for analysis - IV Dilaudid PRN for pain management - Urology consulted, appreciate recommendations -- Check a UC&S- unremarkable -- Check a cytology given his hx of smoking and ? gross hematuria- pending -- Recommend Flomax 0.4 mg HS for the next few days at discharge and f/u in 2 -3 weeks Bilateral small inguinal hernias- f/u outpatient w/ PCP Episodes of melena- currently resolved: - H&H- STABLE - Recommend f/u outpatient for repeat colonoscopy ETOH abuse- drinks 1-2 bottles of rum per week: - Withdrawal protocol- daily banana bag ordered, TID Librium, PRN Ativan, IVF containing GLU -- Librium 10 mg daily PRN for withdrawal symptoms at discharge HTN: Continue Lisinopril 10 mg daily HPL: Following w/ PCP- managing through healthy diet/exercise Anxiety, depression: Prozac 40 mg daily Tobacco use: Smoking cessation counselling DVT prophylaxis: SCDs, ambulation Code Status: LEVEL I, FULL Dispo: Discharge to home Total Time Spent: Greater than 30 minutes This includes examination of the patient, discharge planning, medication reconciliation, and communication with other providers. Discharge Instructions Please refer to the electronic Patient Visit Report (Discharge Instructions) for additional information. 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 Discussed with SEJAL Yadav and agree with findings and plan as documented in the note. Any exceptions or clarifications are listed here: Pt completely pain-free now, passed a small stone which was sent to the lab today. Renal US and KUB reviewed and normal now, no hydro. Reports he started drinking EtOH again despite going to EtOH rehab previously due to depression issues. He is contemplating quitting again but not completely motivated at this time. No signs/symptoms of withdrawal here. Vitals reviewed, mild HTN NAD, sitting in chair, AAOx3 RRR no mgr CTAB no wcr Abd +BS soft NT ND Ext no edema 51 yo male with a h/o obesity, EtOH abuse, fatty liver, HTN, depression/anxiety , here with left sided hydronephrosis and nephrolithiasis. Renal function normal , passed a stone, now pain free, no fevers or evidence of UTI. -continue FLomax at home, po hydration -refrain from EtOH use-counseled extensively-Librium prn and f/u with PCP -start thiamine, MVI, and Folic acid daily -f/u Urology in 2-3 weeks, PCP within 1-2 weeks -Urology and/or PCP to f/u on URINE CYTOLOGY which is pending at time of discharge Documented By: Jovana Hudson
[2017-07-23 13:37] VITALS: BP 154/95; PULSE 61; TEMP 36.5; O2SAT 96
[2017-07-23] MEDS ORDERED: MULT-589 PO (13:47)
[2017-07-23] MEDS ORDERED: THIA1TAB PO (13:47)
[2017-07-23] MEDS ORDERED: FOLI1TAB8 PO (13:47)
--- NOTE | 2017-07-23 14:40 | NUR ---
A: Discharge instructions reviewed with patient. Denied any questions or concerns.
[2018-02-26] MEDS ORDERED: TRAZ1TAB49 PO (09:56)
== END 2017-07-23 14:45 | disposition home or self-care (01) ==
LOC: C.EDB 03:48 → C.MSW 06:39 → ENRESERV 07:18
PROVIDERS: ADMIT Internal Medicine; ATTEND Family Medicine
DX: N13.30 Unspecified hydronephrosis (principal); N20.0 Calculus of kidney; K40.20 Bilateral inguinal hernia, without obstruction or gangrene, not specified as recurrent; K92.1 Melena; I10 Essential (primary) hypertension; F41.9 Anxiety disorder, unspecified; F32.9 Major depressive disorder, single episode, unspecified; F17.200 Nicotine dependence, unspecified, uncomplicated; K76.0 Fatty (change of) liver, not elsewhere classified; Z96.649 Presence of unspecified artificial hip joint; Z80.9 Family history of malignant neoplasm, unspecified; Z83.3 Family history of diabetes mellitus; Z82.49 Family history of ischemic heart disease and other diseases of the circulatory system

== ENCOUNTER 2018-02-20 08:24 | Inpatient (IN) | payer OTHER ==
[~2018-02-20] VITALS: Ht 177.8 cm; Wt 120.2 kg
[~2018-02-20 08:24] MED LIST changes: +CALCTAB5 PO; +FLM4 PO; +MULT-589 PO; +THIA1TAB PO
[2018-02-20 09:18] LABS: HEMATOCRIT 39.5 % (42-52); HEMOGLOBIN 14.4 g/dL (14.0-18.0); MEAN CELL VOLUME 92.5 fL (80-100); MEAN CORPUSCULAR HEMOGLOBIN 33.7 pg (25-34); MEAN CORPUSCULAR HGB CONC 36.5 g/dl (32-36); MEAN PLATELET VOLUME 9.4 fL (7.4-10.4); PLATELET COUNT 226 K/uL (130-400); RED CELL DISTRIBUTION WIDTH CV 13.9 % (11.5-14.5); RED CELL DISTRIBUTION WIDTH SD 46.7 fL (36.4-46.3); WHITE BLOOD COUNT 6.85 K/uL (4.8-10.8)
--- NOTE | 2018-02-20 09:27 | EMERGENCY ROOM VISIT NOTE ---
History Report prepared by Prosper: Christiano Wooten Under the Supervision of: Dr. Cody Bradford M.D. First contact with patient: 08:35 Chief Complaint: MENTAL HEALTH EVALUATION Stated Complaint: MENTAL HEALTH EVALUATIION History of Present Illness HPI is limited due to alcohol intoxication. The patient is a 52 year old male who presents to the Emergency Room with complaints of a worsening mental state. brokerage manager states the patient has called the [place] Police numerous times saying he wants to "kill drug dealers". Patient admits to wanting to shoot drug dealers. Patient states his daughter is a drug addict in [place] and that this has worsened his symptoms. Patient states he then called [employer] on himself. Patient adds that he wants to michelle a bank and [employer] and admits to wanting to go to [facility]. He denies having a gun but states he would use his hand in the "form of a gun". Patient states he "wishes he was ". He denies wanting to kill himself. Patient states he can't go to [place] because he can't afford it. Patient states he has been drinking. Patient states he drinks alcohol everyday. He denies alcohol withdrawal symptoms when he doesn't drink. Patient adds that he smokes cigarettes. Past medical history includes depression, anxiety, and cardiac problems. brokerage manager adds that the patient's is black and his children are . She adds that the patient is . brokerage manager states the patient lives by himself. Source of History: patient, other (brokerage manager) History Limited By: AMS (Alcohol intoxication) Position: head Timing: worsening Review of Systems See HPI for pertinent positives and negatives. A total of ten systems were reviewed and were otherwise negative. Past Medical & Surgical Medical Problems: (1) Alcoh Dep Nec/Nos-Unspec (2) Hip Joint Replacement Status (3) Hydronephrosis with obstructing calculus (4) Hypertension Nos (5) Pure Hypercholesterolem Family History Blood clots Cancer Diabetes mellitus Heart disease Hypertension Social History Smoking Status: Current Every Day Smoker Alcohol Use: heavy Drug Use: none Marital Status: Housing Status: lives alone Occupation Status: unemployed Current/Historical Medications Scheduled Fluoxetine (Prozac), 40 MG PO DAILY Lisinopril (Prinivil), 10 MG PO DAILY Allergies Coded Allergies: No Known Allergies (Verified , 02/20/18) Physical Exam Vital Signs Date Time Temp Pulse Resp B/P (MAP) Pulse Ox O2 Delivery O2 Flow Rate FiO2 02/20/18 15:04 84 20 121/74 94 Room Air 02/20/18 14:10 72 20 103/66 96 Room Air 02/20/18 13:00 76 18 107/62 95 Room Air 02/20/18 11:00 84 16 95/45 96 Room Air 02/20/18 08:30 36.9 95 18 138/89 96 Room Air Physical Exam GENERAL: Awake, alert, intoxicated, well-appearing, in no distress HENT: Normocephalic, atraumatic. Oropharynx unremarkable. [Mucous membranes are dry.] EYES: Normal conjunctiva. Sclera non-icteric. NECK: Supple. No nuchal rigidity. FROM. No JVD. RESPIRATORY: Clear to auscultation. CARDIAC: Regular rate, normal rhythm. Extremities warm and well perfused. Pulses equal. ABDOMEN: Soft, non-distended. No tenderness to palpation. No rebound or guarding. No masses. RECTAL: Deferred. MUSCULOSKELETAL: Chest examination reveals no tenderness. The back is symmetrical on inspection without obvious abnormality. There is no CVA tenderness to palpation. No joint edema. LOWER EXTREMITIES: Calves are equal size bilaterally and non-tender. No edema. No discoloration. NEURO: Positive HI and SI otherwise normal sensorium. No sensory or motor deficits noted. SKIN: No rash or jaundice noted. Medical Decision & Procedures Laboratory Results 02/20/18 09:02 Red Blood Count 4.27, Mean Corpuscular Volume 92.5, Mean Corpuscular Hemoglobin 33.7, Mean Corpuscular Hemoglobin Concent 36.5, Mean Platelet Volume 9.4, Neutrophils (%) (Auto) 38.6, Lymphocytes (%) (Auto) 51.8, Monocytes (%) (Auto) 5.8, Eosinophils (%) (Auto) 3.1, Basophils (%) (Auto) 0.4, Neutrophils # (Auto) 2.64, Lymphocytes # (Auto) 3.55, Monocytes # (Auto) 0.40, Eosinophils # (Auto) 0.21, Basophils # (Auto) 0.03 02/20/18 09:02 Test 02/20/18 08:45 02/20/18 08:54 02/20/18 09:02 Urine Color YELLOW Urine Appearance CLEAR (CLEAR) Urine pH 5.0 (4.5-7.5) Urine Specific [place] 1.020 (1.000-1.030) Urine Protein NEG (NEG) Urine Glucose (UA) NEG (NEG) Urine Ketones NEG (NEG) Urine Occult Blood TRACE (NEG) Urine Nitrite NEG (NEG) Urine Bilirubin NEG (NEG) Urine Urobilinogen NEG (NEG) Urine Leukocyte Esterase NEG (NEG) Urine WBC (Auto) 1-5 /hpf (0-5) Urine RBC (Auto) 0-4 /hpf (0-4) Urine Hyaline Casts (Auto) 1-5 /lpf (0-5) Urine Epithelial Cells (Auto) 5-10 /lpf (0-5) Urine Bacteria (Auto) NEG (NEG) Urine Opiates Screen NEG (NEG) Urine Methadone, Qualitative NEG (NEG) Urine Barbiturates NEG (NEG) Urine Phencyclidine (PCP) Level NEG (NEG) Ur Amphetamine/Methamphetamine NEG (NEG) MDMA (Ecstasy) Screen NEG (NEG) Urine Benzodiazepines Screen NEG (NEG) Urine Cocaine Metabolite NEG (NEG) Urine Marijuana (THC) POS (NEG) Bedside Glucose 113 mg/dl (70-99) White Blood Count 6.85 K/uL (4.8-10.8) Red Blood Count 4.27 M/uL (4.7-6.1) Hemoglobin 14.4 g/dL (14.0-18.0) Hematocrit 39.5 % (42-52) Mean Corpuscular Volume 92.5 fL (80-100) Mean Corpuscular Hemoglobin 33.7 pg (25-34) Mean Corpuscular Hemoglobin Concent 36.5 g/dl (32-36) Platelet Count 226 K/uL (130-400) Mean Platelet Volume 9.4 fL (7.4-10.4) Neutrophils (%) (Auto) 38.6 % Lymphocytes (%) (Auto) 51.8 % Monocytes (%) (Auto) 5.8 % Eosinophils (%) (Auto) 3.1 % Basophils (%) (Auto) 0.4 % Neutrophils # (Auto) 2.64 K/uL (1.4-6.5) Lymphocytes # (Auto) 3.55 K/uL (1.2-3.4) Monocytes # (Auto) 0.40 K/uL (0.11-0.59) Eosinophils # (Auto) 0.21 K/uL (0-0.5) Basophils # (Auto) 0.03 K/uL (0-0.2) RDW Standard Deviation 46.7 fL (36.4-46.3) RDW Coefficient of Variation 13.9 % (11.5-14.5) Immature Granulocyte % (Auto) 0.3 % Immature Granulocyte # (Auto) 0.02 K/uL (0.00-0.02) Anion Gap 8.0 mmol/L (3-11) Est Creatinine Clear Calc Drug Dose 111.9 ml/min Estimated GFR () 99.7 Estimated GFR (Non- 86.0 BUN/Creatinine Ratio 17.4 (10-20) Calcium Level 9.2 mg/dl (8.5-10.1) Total Bilirubin 0.3 mg/dl (0.2-1) Direct Bilirubin < 0.1 mg/dl (0-0.2) Aspartate Amino Transf (AST/SGOT) 32 U/L (15-37) Alanine Aminotransferase (ALT/SGPT) 51 U/L (12-78) Alkaline Phosphatase 79 U/L (45-117) Total Protein 8.2 gm/dl (6.4-8.2) Albumin 4.5 gm/dl (3.4-5.0) Globulin 3.7 gm/dl (2.5-4.0) Albumin/Globulin Ratio 1.2 (0.9-2) Thyroid Stimulating Hormone (TSH) 1.400 uIu/ml (0.300-4.500) Ethyl Alcohol mg/dL 347.0 mg/dl (0-3) Laboratory results reviewed by ms ED Course 0859: The patient was evaluated in room A6. A complete history and physical exam was performed. 1404: I reevaluated the patient. He is now acting appropriate and is apologetic for his behavior. Patient is now clinically sober and is pending psychiatric evaluation. 1500: Patient was signed out to Dr. Juarez at change of shifts. Medical Decision I reviewed the patient's past medical history, medications, and the nursing notes as described above. Differential diagnosis: Etiologies such as mood disorder, infection, hypoglycemia, electrolyte abnormalities, cardiac sources, intracerebral event, toxicologic, neurologic, as well as others were entertained. The patient is a 52-year-old gentleman with a past medical history depression, alcohol abuse who presents emergency department with a 302 petition by police after he had called the [place] Police Department saying that he wanted to go there to kill and shoot drug dealers because he is upset that they have made his daughter into a drug addict. Patient's subsequently also called local police department saying the same things as well as saying that he wanted to michelle [place] using his finger hidden as a gun. Moreover he reports feeling depressed with constant thoughts of wanting his life to end. He reports he drinks alcohol every day and it has been over a year since he is gone a day without drinking but denies any symptoms of alcohol withdrawal. On arrival the patient is clinically intoxicated with mildly impaired finger to nose and aggressive speech. Labs notable for alcohol level 340s. Otherwise labs unremarkable. Patient was reevaluated after 5 5 hours of time to metabolize and was clinically sober and subsequently pleasant and apologetic for his behavior. Exhibited normal insight into his behavior saying that it was an appropriate to make those phone calls and suggestions of wanting to shoot people. However, he goes on to say that he has been feeling persistently depressed with despair. Moreover, the patient reports that his local Police Department are familiar with him becoming intoxicated and behaving in this way. However, it should be noted that before this episode the submitted a 302 petition because of their concern. Despite the patient's improved insight now that he is clinically sober, his extreme behaviors of calling police threatening to kill people by shooting them is evidence of unstable mental state , regardless of his intoxication. Given that the patient is currently cooperative with good insight and willing to be admitted if admitted locally here to we will allow him the opportunity to sign in as a 201. However, if admission here is not possible and or the patient changes his mind the 302 petition should be upheld as I do not believe it is safe for the patient to be discharged. Additionally this is consistent with his high risk score on the psychiatric case management coordinator suicide assessment. Patient remains calm and cooperative however does report some slight nausea and anxiety. Thus will help keep the patient comfortable with oral Ativan, Zofran, and nicotine patch. The patient was signed out to Dr. Juarez. At the time of signout, case management making referral to for admission. Decision pending. Medication Reconcilliation Current Medication List: was personally reviewed by me Blood Pressure Screening Patient's blood pressure: Normal blood pressure Blood pressure disposition: Did not require urgent referral Impression Primary Impression: Suicidal ideation Additional Impressions: Depression Alcohol intoxication Scribe Attestation The scribe's documentation has been prepared under my direction and personally reviewed by me in its entirety. I confirm that the note above accurately reflects all work, treatment, procedures, and medical decision making performed by me. Departure Information Referrals Carlos Nuñez III, CRNP (PCP) Patient Instructions My [facility] Problem Qualifiers
[2018-02-20 09:46] LABS: ALBUMIN 4.5 gm/dl (3.4-5.0); ALKALINE PHOSPHATASE 79 U/L (45-117); ALT/SGPT 51 U/L (12-78); AST/SGOT 32 U/L (15-37); BLOOD UREA NITROGEN 17 mg/dl (7-18); CALCIUM 9.2 mg/dl (8.5-10.1); CARBON DIOXIDE 24 mmol/L (21-32); CREATININE 0.99 mg/dl (0.60-1.40); GLUCOSE 116 mg/dl (70-99); POTASSIUM 3.9 mmol/L (3.5-5.1); SODIUM 141 mmol/L (136-145); TOTAL PROTEIN 8.2 gm/dl (6.4-8.2)
[2018-02-20 09:49] LABS: BASO % 0.4 %; BASO ABS # 0.03 K/uL (0-0.2); EOS % 3.1 %; EOS ABS # 0.21 K/uL (0-0.5); IG# 0.02 K/uL (0.00-0.02); LYMPH % 51.8 %; LYMPH ABS # 3.55 K/uL (1.2-3.4); MONO % 5.8 %; NEUT % 38.6 %; NEUT ABS # 2.64 K/uL (1.4-6.5)
[2018-02-20] MEDS ORDERED: LORAZEPAM 1 MG TAB SL STA (14:59)
[2018-02-20] MEDS ORDERED: NICOTINE 21 MG/24 HR TDSY TD STA (15:00)
[2018-02-20] MEDS ORDERED: ONDANSETRON 4MG OD TAB PO ONE (15:00)
[2018-02-20] MEDS ORDERED: LISINOPRIL 20 MG TAB PO STA ×2 (15:32→16:03)
[2018-02-20] MEDS ORDERED: FLUOXETINE HCL 10 MG CAP PO ONE (15:45)
[2018-02-20] MEDS ORDERED: LISINOPRIL 5 MG TAB ONE (16:07)
[2018-02-20] MEDS ORDERED: FLUOXETINE HCL 20 MG CAP PO ONE (16:15)
--- NOTE | 2018-02-20 19:02 | EMERGENCY ROOM VISIT NOTE ---
ED Visit Note First contact with patient: 15:32 I received this patient at change of shift signout from Dr. thomas. Please see his note for complete history and physical. The patient arrived in the emergency department for a 302 petition. The patient had significant suicidal and homicidal ideation which he voiced to police. The patient was medically cleared with the exception of having an elevated alcohol level. He was observed multiple times and reevaluated. At this point he is awake alert and oriented x3. He is able to carry on a conversation and ambulate without difficulty. Repeat alcohol level was significantly improved. I discussed this case with the emergency department mental health medical case manager. He will be reevaluated for an overall risk assessment. At this time he is agreeable to voluntary admission if that decision was felt to be in his best interest. The patient was evaluated by the delegate from 3 S. and was felt to be a good candidate for inpatient management our facility. I signed the 201 paperwork and also signed the denial for the 302 paperwork as the patient was now agreeable to inpatient management voluntarily.
[2018-02-20] MEDS ORDERED: hydrOXYzine HCL 25 MG TAB PO PRN (19:45)
[2018-02-20] MEDS ORDERED: BISMUTH SUBSALICYLATE PER ML OMNICELL CHARGE PO PRN (19:45)
[2018-02-20] MEDS ORDERED: GABAPENTIN 600 MG TAB PO SCH (19:45)
[2018-02-20] MEDS ORDERED: SODIUM CHLORIDE 0.65% NA SOLN 45 ML (OCEAN) PRN (19:45)
[2018-02-20] MEDS ORDERED: MAGNESIUM HYDROXIDE SUSP 30 ML UDC PO PRN (19:45)
[2018-02-20] MEDS ORDERED: ALUMINUM/MAGNESIUM SUSP 30 ML UDC PO PRN (19:45)
[2018-02-20 20:42] VITALS: O2SAT 95
[2018-02-20] MEDS ORDERED: GABAPENTIN 1200MG LOADING DOSE PO SCH (22:00)
[2018-02-21] VITALS (7 sets, daily range): BP systolic 128–164; BP diastolic 84–115; PULSE 66–96; TEMP 36.7–37; Ht 177.8 cm; Wt 120.2 kg
[2018-02-21] MEDS: hydrOXYzine HCL 25 MG TAB PO PRN ×2 (01:00→21:17)
[2018-02-21] MEDS: GABAPENTIN 600MG Q6H DOSE PO SCH ×2 (06:47→12:39)
--- NOTE | 2018-02-21 08:11 | Psychiatric History & Physical ---
History Date of Service Feb 21, 2018. Identifying Data Chris Kirkland is a 52-year-old male from [place] who has a history of alcohol dependence and depression and was admitted voluntarily on Feb 20, 2018 at 19:47 for suicidal and homicidal ideation. Chief Complaint "I was doing some things around the house, and of course I indulge and self- medicate myself with vodka or rum..." History of Present Illness According to records, the patient presented to the emergency room yesterday morning with police, after he made homicidal and suicidal statements, threatening to michelle a bank or gas station, and police completed a 302 petition. It states that yesterday morning he called 911 threatening to michelle a bank, and police responded to his residence, where he made multiple statements that he was going to get a gun and drive to [facility] to "kill niggers," that he was going to use his finger as a gun and [facility] to get [facility], and wanted his life to be over. He was intoxicated in the ER with a blood alcohol level of 347, and was uncooperative with initial assessment. He told ER staff he wanted to "shoot drug dealers," and michelle a bank, stating he was tired of his life and wanted to be . He denied having access to a gun. His pharmacy was contacted to confirm his outpatient medications, and although he is prescribed Lipitor, he states he never takes it. He was assessed once sober, and reported worsening depressive symptoms with sadness, lack of motivation, hypersomnia, guilt, helplessness, hopelessness, and daily suicidal thoughts. He reported constant anxiety, and ongoing heavy alcohol use, drinking to intoxication multiple times weekly, and sleeping off the alcohol on the days in between his binges. He denied withdrawal symptoms in the ER, and vital signs were normal. His PCP prescribes fluoxetine 40 mg daily, but he admitted to missing multiple doses weekly. Once sober, he denied homicidal thoughts, and stated that he had made threats to shoot the drug dealers in [place] who were "camping out" his daughter, but denied any intent to follow through on this, stating that he does not have a gun or the ability to buy one, that he was just upset and thinking about his daughter's addiction and current circumstances, as she lives in [place] and is struggling. He endorsed multiple psychosocial stressors , stating he has no local supports, is unemployed as he recently lost his job, has no outpatient mental health care, and is financially stressed. The 302 petition was dismissed, and he signed in voluntarily. On my assessment, the patient states he has been distraught about his daughter in [place], who has been there for 5-6 years, is addicted to heroin, and has been "selling herself, hustles to get money." She has been in and out of rehab, got out of a [place] rehab in October, and had been back in [place]. He heard from " a gentleman down there who looks out for her" that she "got crazy, combative, trashed the room she was staying in," and he got upset, "all fired up, was mouthy and stuff, called 911, they told me they can't do anything, they know all about it." He has also been calling the [place] police, who told him they can't do anything, as she's an adult. She's been arrested multiple times, and he "keeps paying the fines and stuff, she's my daughter." He feels guilty about his daughter's condition, questioning his past decisions. He admits to making threats to go to [place] and shoot drug dealers, michelle a bank, and kill himself, and says he told the police to take him to [facility]. He says he doesn' t know why he said he wanted to michelle a bank or kill people, "I was just talking out of my ass, I wasn't in my right state of mind," noting he was intoxicated. He relates his low mood to his daughter's prediction, stating he thinks about it daily and "it weighs on me." Admits to drinking 3-7 days a week, "a couple big bottles" of liquor a week. Will go for days at a time of "just lying in bed , drinking." Admits his drinking has resulted in loss of multiple jobs, legal problems, and worsening mood, and knows he needs to stop drinking, but hasn't been able to, and is refusing rehab, AA, etc., "I know what I need to do." Reports poor support, son just moved to another state and youngest daughter is in [place] for a network internship. Is living in an attached apartment at a friend's house, and says friend is "sick of my drinking." Not sure what his goals of treatment are, "just a time of sobriety, every day living is a hassle to me." He endorses hopelessness, "this fing life isn't worth living, just wish I could go to sleep and not wake up." Denies symptoms consistent with elda, psychosis, PTSD, OCD. Had lengthy discussion about his drinking, as he identifies a pattern whereby any time something else in his life conflicts with his drinking, such as jobs or relationships, he chooses the drinking and will quit the job or in the relationship. He admits that he is not sure if he is ready to give it up, that he may be intentionally slowly killing himself with the alcohol, and that he leans on it as a way to cope. He gives reasons why he cannot or will not go to rehab, do IOP, return to , removed alcohol from his home, allow us to talk with friends or family, or change his current pattern of behavior. Admits to feeling alone, "no one believes me, I have no one." States his children are the only reason he has not ended his life, but admits that he has started to make preparations for his , including getting rid of belongings so that dealing with his things is not a burden for his children. He states that he would never commit suicide using a weapon, as he would not want his children to have to "clean up the mess," but often wishes that he would "go to sleep and never wake up." Past Psychiatric History Current OP Treatment: no current treatment (PCP prescribes antidepressant.) Prior OP Treatment: psychiatrist (Dr. Townsend at [facility]), therapist (Sumanth Lowery at [facility]) Prior Psych Hospitalizations: [facility] (2014)[facility] (, seen on the consultation service multiple times when admitted for alcohol withdrawal.) Access to a Gun: No Suicide Attempts: Yes (Overdosed on drugs and alcohol in 2013) Past Medication Trials Citalopram -[facility] at [facility] in 2014 Sertraline Fluoxetine Additional Notes Previous diagnoses of depression NOS (substance-induced depression versus major depression), generalized anxiety disorder, and alcohol use disorder, severe. History of noncompliance with outpatient treatment. Past Medical/Surgical History (1) Alcoh Dep Nec/Nos-Unspec (2) Hypertension Nos (3) Pure Hypercholesterolem PCP is JCARLOS Ralph Allergies Allergies: Coded Allergies: No Known Allergies (Verified , 02/20/18) Home Medications Scheduled Fluoxetine (Prozac), 40 MG PO DAILY Lisinopril (Prinivil), 10 MG PO DAILY Family History Blood clots Cancer Diabetes mellitus Heart disease Hypertension History of Suicide: No History of Substance Abuse: Yes (Father with alcoholism, daughter addicted to heroin) Psychiatric History: Yes (Mother had depression, father had dementia) Alcohol Use Alcohol Use In Past 12 Months: Yes (Drinking heavily to intoxication 3-7 days/ week.) AUDIT Total Score: 19 Long-standing alcohol dependence throughout his adult life, with multiple previous admissions for intoxication/withdrawal/alcohol overdose. Multiple presentations with alcohol levels >300 mg/dl. Often drinks until blackout, typically liquor. History of DUIs and loss of courtesy driver's license. Multiple rehabs in the past, including [facility] 2010 and [facility] 2013. His longest period of sobriety was approximately 1 year after the [facility] rehab. Has had outpatient substance abuse treatment at [facility], but was not compliant with care. Has attended AA meetings in the past. Smoking Use Smoking Status: Light Tobacco Smoker Substance History Regular marijuana use, UDS positive. Personal History Lives in: Lives in [place] in apartment in friend's house, has own entrance Childhood: Grew up in [place], also lived in [place]. Parents 12-14 years ago. Moved here after in 2000 after parents . He has 2 brothers and 1 sister, who live out of [facility]. Work History: Recently "walked out" from [employer] job after only working there 5 days. Prior to that worked for a [employer] company, [employer], which lasted 4 months. 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 Relationship History: (After 7 years of marriage, due to his alcoholism. Ex- is remarried and lives next door to him.) Children: 3 adult children Legal History: reported (History of DUI about 10 years ago) Psychological Trauma History: Significant Loss (Daughter who is addicted to heroin) Additional Comments: Youngest daughter Charlene lives locally but is out of town for the summer for an news internship. Son just moved to [place]. Daughter Cathleen lives in [place] and is an heroin addict. Review of Systems 10 systems reviewed, negative except as stated above. Denies withdrawal symptoms. Examination Physical Examination A physical exam was performed in the ER prior to admission to the unit by Dr. Bradford. I accept that physical as correct/medical clearance for the inpatient physical exam. Vital Signs Vital Signs Past 12 Hours Date Time Temp Pulse Resp B/P (MAP) Pulse Ox O2 Delivery O2 Flow Rate FiO2 02/21/18 06:57 36.7 66 18 142/90 82 131/92 02/21/18 00:15 36.9 88 18 128/84 02/20/18 20:42 93 18 142/93 95 Laboratory Results Last 24 Hours Test 02/20/18 08:45 02/20/18 08:54 02/20/18 09:02 02/20/18 18:07 Urine Color YELLOW Urine Appearance CLEAR Urine pH 5.0 Urine Specific [place] 1.020 Urine Protein NEG Urine Glucose (UA) NEG Urine Ketones NEG Urine Occult Blood TRACE Urine Nitrite NEG Urine Bilirubin NEG Urine Urobilinogen NEG Urine Leukocyte Esterase NEG Urine WBC (Auto) 1-5 /hpf Urine RBC (Auto) 0-4 /hpf Urine Hyaline Casts (Auto) 1-5 /lpf Urine Epithelial Cells (Auto) 5-10 /lpf Urine Bacteria (Auto) NEG Urine Opiates Screen NEG Urine Methadone, Qualitative NEG Urine Barbiturates NEG Urine Phencyclidine (PCP) Level NEG Ur Amphetamine/Methamphetamine NEG MDMA (Ecstasy) Screen NEG Urine Benzodiazepines Screen NEG Urine Cocaine Metabolite NEG Urine Marijuana (THC) POS Bedside Glucose 113 mg/dl White Blood Count 6.85 K/uL Red Blood Count 4.27 M/uL Hemoglobin 14.4 g/dL Hematocrit 39.5 % Mean Corpuscular Volume 92.5 fL Mean Corpuscular Hemoglobin 33.7 pg Mean Corpuscular Hemoglobin Concent 36.5 g/dl Platelet Count 226 K/uL Mean Platelet Volume 9.4 fL Neutrophils (%) (Auto) 38.6 % Lymphocytes (%) (Auto) 51.8 % Monocytes (%) (Auto) 5.8 % Eosinophils (%) (Auto) 3.1 % Basophils (%) (Auto) 0.4 % Neutrophils # (Auto) 2.64 K/uL Lymphocytes # (Auto) 3.55 K/uL Monocytes # (Auto) 0.40 K/uL Eosinophils # (Auto) 0.21 K/uL Basophils # (Auto) 0.03 K/uL RDW Standard Deviation 46.7 fL RDW Coefficient of Variation 13.9 % Immature Granulocyte % (Auto) 0.3 % Immature Granulocyte # (Auto) 0.02 K/uL Sodium Level 141 mmol/L Potassium Level 3.9 mmol/L Chloride Level 109 mmol/L Carbon Dioxide Level 24 mmol/L Anion Gap 8.0 mmol/L Blood Urea Nitrogen 17 mg/dl Creatinine 0.99 mg/dl Est Creatinine Clear Calc Drug Dose 111.9 ml/min Estimated GFR () 99.7 Estimated GFR (Non- 86.0 BUN/Creatinine Ratio 17.4 Random Glucose 116 mg/dl Calcium Level 9.2 mg/dl Total Bilirubin 0.3 mg/dl Direct Bilirubin < 0.1 mg/dl Aspartate Amino Transf (AST/SGOT) 32 U/L Alanine Aminotransferase (ALT/SGPT) 51 U/L Alkaline Phosphatase 79 U/L Total Protein 8.2 gm/dl Albumin 4.5 gm/dl Globulin 3.7 gm/dl Albumin/Globulin Ratio 1.2 Thyroid Stimulating Hormone (TSH) 1.400 uIu/ml Ethyl Alcohol mg/dL 347.0 mg/dl 96.3 mg/dl Mental Examination During interview pt is: alert and oriented, cooperative Appearance: appropriately dressed, appropriately groomed, other (obese) Eye contact is: fair Motor behavior is: steady gait & station, no abnormal motor movements Speech: normal in rate, rhythm & volume Affect: mood congruent, depressed, tearful Mood is: depressed Thought process: goal directed, linear, logical Thought content: cognitive distortions, reality based without delusions Suicidal thought are: present Homicidal thoughts are: denied Hallucinations: denies auditory, denies visual Cognition: memory grossly intact (except when intoxicated), attention grossly intact, language grossly intact Insight: impaired Judgement: impaired Impression / Recommendations Impression 52 y/o DWM with alcohol dependence, cannabis abuse, and depression NOS who is admitted after calling police and making suicidal and homicidal statements. He was brought in on a 302 and highly intoxicated, but signed in voluntarily after sobering up. He is endorsing the same symptoms as he's had on multiple past episodes of care, and although he recognizes the need to address his alcoholism , he is not willing to make changes or engage in treatment currently. Have recommended inpatient rehab which he declines, but is willing to consider dual diagnosis outpatient treatment. Will also increase fluoxetine to 60mg daily to target depression. Inpatient treatment is medically necessary due to high risk for suicide if discharged. Inventory Assets Strengths: Willing for treatment, stable housing Needs: Substance abuse treatment/meaningful plan for sobriety, mental health treatment , improved adherence to treatment, sobriety from substances Risk Factors Assessment Male: Yes : Yes /single/: Yes Higher / Fall in social status: No Access to guns: No Health problems: Yes Mental Health Diagnoses: Yes Substance use disorders: Yes Previous attempt: Yes Family history of suicide: No Previous psychiatric stay: Yes Hopelessness: Yes Smoker: Yes Protective Factors Assessment : No Responsible for young children: No Employed: No Stable relationships: No Good rapport with provider: No (No outpatient providers) Recommendations (1) Depression 02/21 -long-standing alcohol abuse, which clouds the picture and precludes diagnosis of major depressive disorder, as he has not had a period of sobriety. He has been treated with several SSRI antidepressants in the past, but has a pattern of nonadherence with treatment, so fluoxetine is a good choice given its long half-life and less risk of missed doses. Will increase to 60mg daily, as has never been on higher doses. -Every 15 minute checks for safety, attend groups and work on coping skills and discharge safety plan. -Encourage family meeting with local supports. -Encourage treatment for his alcoholism, as it will be difficult to address mood symptoms as long as he is drinking. He would benefit from outpatient dual diagnosis treatment, with a substance abuse counselor and psychiatrist. ? [facility]? -Coordinate care with PCP, JCARLOS Ralph who has been prescribing his fluoxetine. (2) Alcohol use disorder, severe, dependence 02/21 - The patient's AUDIT score suggests problematic drinking (Zone [place] WHO). Brief intervention was offered and accepted Intervention was greater than 5 min in length. Brief interventions include: 1. Assess Readiness to Quit, 2. Advise: Help Patient to Reduce or Abstain from Alcohol, 3. Agree: Set Specific, Feasible Goals, 4. Assist: Anticipate barriers, Problem-Solving Solutions. Social work to 5. Arrange: Referrals to appropriate treatment. Summary of intervention: The patient is in precontemplation stage with regards to transtheoretical model of change. The patient is advised recommendations are for inpatient rehab and abstinence from alcohol, due to the risks of , withdrawal, and organ damage, worsening of depression, suicide, and risk of interactions with prescription medications. The patient is adamantly refusing rehab and AA, so we will explore outpatient treatment options (IOP), and will be provided with recovery materials to continue to education self on how to cope with their condition without drinking. -Continue AWSS with gabapentin taper and lorazepam as needed for withdrawal symptoms. -Patient states he has a full bottle of liquor at home, so would recommend someone be identified to remove it. He is refusing this currently. Suggested that he ask his friend David, whose house he lives in, to remove it, but he remains unwilling. -Had a kamlesh discussion with the patient about the severity of his alcoholism and his resistance to making real changes to his behavior. He admits that he is ambivalent about change, and encouraged him to continue to explore this here. (3) Cannabis abuse 02/21 -reviewed risks of ongoing substance abuse, including health problems, drug drug interactions, and legal problems, and recommendations for abstinence and substance abuse treatment. CPT Code Initial Hospital Care: 41791 Problem Qualifiers (1) Depression: Depression Type: unspecified Qualified Codes: F32.9 - Major depressive disorder, single episode, unspecified
[2018-02-21] MEDS ORDERED: FLUOXETINE HCL 20 MG CAP PO SCH (09:00)
[2018-02-21] MEDS: LISINOPRIL 10 MG TAB PO SCH (09:24)
[2018-02-21] MEDS ORDERED: NICOTINE 21 MG/24 HR TDSY TD ONE (12:55)
[2018-02-21] MEDS: GABAPENTIN 600MG Q8H DOSE PO SCH (21:11)
[2018-02-22] MEDS: hydrOXYzine HCL 25 MG TAB PO PRN ×2 (00:39→23:58)
[2018-02-22] MEDS: GABAPENTIN 600MG Q8H DOSE PO SCH ×2 (06:24→12:59)
[2018-02-22 06:54] VITALS: BP_SYST 149; BP_SYST 160; BP_DIAS 100; BP_DIAS 111; PULSE 65; PULSE 73; TEMP 36.4
[2018-02-22] MEDS ORDERED: NICOTINE 21 MG/24 HR TDSY TD SCH (09:00)
--- NOTE | 2018-02-22 09:20 | Psychiatric Progress Notes ---
Progress Note Date of Service Feb 22, 2018. Interval History Chris Kirkland is a 52-year-old male from [place] who has a history of alcohol dependence and depression and was admitted voluntarily on Feb 20, 2018 at 19:47 for suicidal and homicidal ideation. Chief Complaint "Today's been a hard day, it's hitting me for some reason". Subjective Patient was seen & assessed interval progress reviewed with Treatment Team. Staff report the patient has been participating in unit programming; however, has not been agreeable to recommendations for appropriate aftercare to manage his mood symptoms and substance abuse. Pt was seen today to assess progress since admission. Pt states he is "dealing with a lot of guilt today" referring to "my circumstances". He was offered to take advantage of 1-on-1 counseling and reports, "well, I basically unloaded during group." Pt states he was able to talk with social work about scheduling a family meeting via phone with his son. Pt brought conversation toward his alcohol use and continues to believe he is not in a mental place to make a commitment toward active recovery. Encouraged patient to remain open, but in the meantime focus on things he was willing to improve upon, i.e. medication compliance, involving family, etc. Pt reports "I can tell my blood pressure is high, I'm sweating under my collar." Discussed symptoms of alcohol withdrawal with patient as well as the AWSS protocol he has been on since admission. Pt reports concern for poor sleep as well, feeling the hydroxyzine was not helpful last evening for allowing him to sleep. Otherwise the patient states he is doing well. He continues to make comments about "it's time to just be done with all this", but then later states , "I'm just talking out my ass." Review of Systems Psych: denies symptoms other than stated above Constitutional: reports feeling hot, flushed, and sweaty Cardiovascular: denied GI: denied Neurologic: denied Remainder of 10 body systems also reviewed and denied other than noted above. Sleep Information Total Hours of Sleep: 4.00 Meal Information Percent of Breakfast Consumed: 100 Percent of Lunch Consumed: 100 Percent of Dinner Consumed: 100 Mental Status Exam During interview pt is: alert and oriented, cooperative Appearance: appropriately dressed, appropriately groomed, other (obese) Eye contact is: good Motor behavior is: steady gait & station, no abnormal motor movements Speech: normal in rate, rhythm & volume Affect: mood congruent, depressed Mood is: depressed, other ("Today's a hard day") Thought process: goal directed, linear, logical Thought content: cognitive distortions, reality based without delusions Suicidal thought are: present (ongoing comments of "wanting to be done with all this") Homicidal thoughts are: denied (continuing with statements of "I want to shoot up those mother f", but then states, "I'm just talking out my ass") Hallucinations: denies auditory, denies visual Cognition: memory grossly intact (except when intoxicated), attention grossly intact, language grossly intact Intelligence estimated to be: consistent with level of education Insight: impaired Judgement: impaired Impression Pt continues to report depressive symptoms, stating today is especially difficult. He remains willing to entertain conversations regarding his alcohol abuse, but is resistant toward actual change. Pt aware of steps needed for recovery, but is admittedly not mentally prepared for this change at this time. Encouraged patient to consider small changes that can work toward overall improvement. Discussed medication compliance, involving family supports, and other tasks that may be helpful. Recommendation remains for D&A treatment in combination with psychiatric follow-up. Pt is reportedly tolerating fluoxetine to 60mg daily. Pt stating hydroxyzine 50mg x2 was only minimally helpful for sleep, discussed trial fo trazodone 50mg tonight. Risks and benefits discussed , patient agreeable. Beginning to report symptoms consistent with alcohol withdrawal, remains on AWSS protocol. Inpatient treatment is medically necessary due to high risk for suicide if discharged. Pt reported willingness for naltrexone or other alcohol deterrent. Will continue to assess willingness for this, as was an abrupt statement following our interview, and medication is non-formulary while inpatient. Discussed that this medication can be prescribed at discharge after further discussion, or could be discussed with his outpatient provider as well. Plan (1) Depression 02/21 -long-standing alcohol abuse, which clouds the picture and precludes diagnosis of major depressive disorder, as he has not had a period of sobriety. He has been treated with several SSRI antidepressants in the past, but has a pattern of nonadherence with treatment, so fluoxetine is a good choice given its long half-life and less risk of missed doses. Will increase to 60mg daily, as has never been on higher doses. -Every 15 minute checks for safety, attend groups and work on coping skills and discharge safety plan. -Encourage family meeting with local supports. -Encourage treatment for his alcoholism, as it will be difficult to address mood symptoms as long as he is drinking. He would benefit from outpatient dual diagnosis treatment, with a substance abuse counselor and psychiatrist. ? [facility]? -Coordinate care with PCP, JCALROS Ralph who has been prescribing his fluoxetine. 02/22 - Continue fluoxetine 60mg daily - PRN trazodone 50mg tonight if needed for sleep - Pt willing for phone meeting with his son - Continue to explore willingness for ETOH abuse treatment (2) Alcohol use disorder, severe, dependence 02/21 - The patient's AUDIT score suggests problematic drinking (Zone III WHO). Brief intervention was offered and accepted Intervention was greater than 5 min in length. Brief interventions include: 1. Assess Readiness to Quit, 2. Advise: Help Patient to Reduce or Abstain from Alcohol, 3. Agree: Set Specific, Feasible Goals, 4. Assist: Anticipate barriers, Problem-Solving Solutions. Social work to 5. Arrange: Referrals to appropriate treatment. Summary of intervention: The patient is in precontemplation stage with regards to transtheoretical model of change. The patient is advised recommendations are for inpatient rehab and abstinence from alcohol, due to the risks of , withdrawal, and organ damage, worsening of depression, suicide, and risk of interactions with prescription medications. The patient is adamantly refusing rehab and AA, so we will explore outpatient treatment options (IOP), and will be provided with recovery materials to continue to education self on how to cope with their condition without drinking. -Continue AWSS with gabapentin taper and lorazepam as needed for withdrawal symptoms. -Patient states he has a full bottle of liquor at home, so would recommend someone be identified to remove it. He is refusing this currently. Suggested that he ask his friend David, whose house he lives in, to remove it, but he remains unwilling. -Had a kamlesh discussion with the patient about the severity of his alcoholism and his resistance to making real changes to his behavior. He admits that he is ambivalent about change, and encouraged him to continue to explore this here. 02/22 - Pt reports interest in alcohol deterrent medication such as naltrexone, as had been offered in the past - Will allow patient to consider further as it had been abruptly mentioned - Discussed ability to discuss with outpatient providers as well, as is non- formulary here and could not be started until discharge (3) Cannabis abuse 02/21 -reviewed risks of ongoing substance abuse, including health problems, drug drug interactions, and legal problems, and recommendations for abstinence and substance abuse treatment. Discharge / Aftercare Planning Primary Care Physician: Name: Tammy Grey Visit Code E&M Code: 86444 Inventory Assets Strengths: Willing for treatment, stable housing Needs: Substance abuse treatment/meaningful plan for sobriety, mental health treatment , improved adherence to treatment, sobriety from substances Risk Factors Assessment Male: Yes : Yes /single/: Yes Higher / Fall in social status: No Health problems: Yes Mental Health Diagnoses: Yes Substance use disorders: Yes Previous attempt: Yes Family history of suicide: No Previous psychiatric stay: Yes Hopelessness: Yes Smoker: Yes Protective Factors Assessment : No Responsible for young children: No Employed: No Stable relationships: No Good rapport with provider: No (No outpatient providers) Data Vital Signs Last 24 Hrs: Date Time Temp Pulse Resp B/P (MAP) Pulse Ox O2 Delivery O2 Flow Rate FiO2 02/22/18 06:54 36.4 65 16 160/111 73 149/100 02/21/18 20:46 36.9 85 16 164/115 02/21/18 16:01 37.0 89 16 136/91 02/21/18 16:00 37.0 89 16 136/91 02/21/18 12:11 36.8 83 20 146/110 02/21/18 09:20 36.7 96 18 163/104 Meds Administered Last 24 Hrs: Meds Administered (Past 24Hrs) Medications (Trade) Dose Ordered Sig/Carlo Route Start Time Stop Time Status Last Admin Dose Admin Lorazepam (Ativan Tab) 1 mg NOW STAT SL 02/20/18 14:59 02/20/18 15:00 DC 02/20/18 15:18 1 MG Ondansetron HCl (Zofran Odt) 4 mg ONE ONCE PO 02/20/18 15:00 02/20/18 15:01 DC 02/20/18 15:18 4 MG Nicotine (Nicoderm Cq 21MG Patch) 1 patch NOW STAT TD 02/20/18 15:00 02/20/18 15:01 DC 02/20/18 15:18 1 PATCH Fluoxetine HCl (Prozac Cap) 40 mg NOW ONCE PO 02/20/18 16:15 02/20/18 16:16 DC 02/20/18 16:15 40 MG Lisinopril (Zestril Tab) 10 mg STK-MED ONCE .ROUTE 02/20/18 16:07 02/20/18 16:08 DC 02/20/18 16:14 10 MG Hydroxyzine HCl (Vistaril Tab) 50 mg HSZ PRN PO 02/20/18 19:45 03/22/18 19:44 02/22/18 00:39 50 MG Fluoxetine HCl (Prozac Cap) 40 mg DAILY PO 02/21/18 09:00 02/21/18 11:36 DC 02/21/18 09:24 40 MG Lisinopril (Zestril Tab) 10 mg DAILY PO 02/21/18 09:00 03/23/18 08:59 02/21/18 09:24 10 MG Gabapentin (Neurontin Tab) 1,200 mg TODAY@2200 PO 02/20/18 22:00 02/20/18 22:01 DC 02/21/18 00:59 1,200 MG Gabapentin (Neurontin Tab) 600 mg Q6H PO 02/21/18 06:00 02/21/18 12:01 DC 02/21/18 12:39 600 MG Gabapentin (Neurontin Tab) 600 mg Q8H PO 02/21/18 22:00 02/22/18 14:01 02/22/18 06:24 600 MG Nicotine (Nicoderm Cq 21MG Patch) 1 patch 1255 ONCE TD 02/21/18 12:55 02/21/18 13:29 DC 02/21/18 13:59 1 PATCH Problem Qualifiers (1) Depression: Depression Type: unspecified Qualified Codes: F32.9 - Major depressive disorder, single episode, unspecified
[2018-02-22] MEDS: FLUOXETINE HCL 20 MG CAP PO SCH (09:50)
[2018-02-22] MEDS: ACETAMINOPHEN 325 MG TAB PO PRN (09:50)
[2018-02-22] MEDS: LISINOPRIL 10 MG TAB PO SCH (09:51)
[2018-02-22 09:57] VITALS: BP 177/114; PULSE 63; TEMP 36.6
[2018-02-22 12:51] VITALS: BP 155/113; PULSE 85; TEMP 36.6
[2018-02-22] MEDS: LORAZEPAM 1 MG TAB PO PRN (12:59)
[2018-02-22 15:15] VITALS: BP 140/98; PULSE 80; TEMP 36.7
[2018-02-22 16:10] VITALS: BP 152/98; PULSE 90; TEMP 36.8
[2018-02-22 20:09] VITALS: BP 123/80; PULSE 81; TEMP 36.9
[2018-02-22] MEDS: TRAZODONE HCL 50 MG TAB PO PRN (21:12)
[2018-02-22] MEDS: GABAPENTIN 600MG Q12H DOSE PO SCH (23:40)
[2018-02-23 06:55] VITALS: BP_SYST 149; BP_SYST 161; BP_DIAS 103; BP_DIAS 80; PULSE 71; PULSE 73; TEMP 36.7
[2018-02-23] MEDS: FLUOXETINE HCL 20 MG CAP PO SCH (09:01)
[2018-02-23] MEDS: LISINOPRIL 10 MG TAB PO SCH (09:01)
[2018-02-23] MEDS: ACETAMINOPHEN 325 MG TAB PO PRN ×2 (09:04→22:50)
[2018-02-23 09:05] VITALS: BP 149/105; PULSE 73; TEMP 36.4
[2018-02-23] MEDS: NICOTINE 7 MG/24 HR TDSY TD SCH (09:51)
[2018-02-23 12:39] VITALS: BP 128/90; PULSE 81; TEMP 37
--- NOTE | 2018-02-23 12:46 | Psychiatric Progress Notes ---
Progress Note Date of Service Feb 23, 2018. Interval History Chris Kirkland is a 52-year-old male from [place] who has a history of alcohol dependence and depression and was admitted voluntarily on Feb 20, 2018 at 19:47 for suicidal and homicidal ideation. Chief Complaint "Better today ". Subjective Patient was seen & assessed interval progress reviewed with Nursing and social work. Staff report the patient is going to groups, talking about his stressors and alcoholism, and taking medications as prescribed. He is on a gabapentin taper and received 1 mg of lorazepam yesterday for withdrawal symptoms. Sleep remains suboptimal, getting trazodone and hydroxyzine, but only 4-5 hours of sleep. He is eating 100% of meals. On my assessment, the patient states that his mood is improving, he decided to resume care at [facility], stating he did not like his other options as he would have to drive to [place]. He is considering medication for his alcoholism, stating Antabuse was recommended before but he declined at, but now thinks it might be helpful. He says there is a family meeting scheduled with his son on . He is tolerating the increased dose of fluoxetine well. He denies suicidal and homicidal thoughts. Review of Systems Patient reports feeling "hot under the collar" but denies other symptoms of withdrawal. He did have several episodes of hypertension. Sleep Information Total Hours of Sleep: 4.50 Meal Information Percent of Breakfast Consumed: 100 Percent of Lunch Consumed: 100 Percent of Dinner Consumed: 100 Mental Status Exam During interview pt is: alert and oriented, cooperative Appearance: appropriately dressed, appropriately groomed, other (obese, tattoos on bilateral forearms) Eye contact is: good Motor behavior is: steady gait & station, no abnormal motor movements Speech: normal in rate, rhythm & volume (Very talkative) Affect: mood congruent, euthymic Mood is: other ("Better") Thought process: goal directed, other (Rambles) Thought content: cognitive distortions, reality based without delusions Suicidal thought are: denied Homicidal thoughts are: denied Hallucinations: denies auditory, denies visual Cognition: memory grossly intact (except when intoxicated), attention grossly intact, language grossly intact Intelligence estimated to be: consistent with level of education Insight: impaired Judgement: impaired Impression Mood is improving, and he is willing to agree to treatment for alcohol abuse, but is resistant toward actual change. Receiving medication for alcohol withdrawal, family meeting with son this week, and arranging dual diagnosis treatment. Inpatient treatment is medically necessary due to high risk for suicide if discharged. Pt reported willingness for naltrexone or other alcohol deterrent. Will continue to assess willingness for this, as was an abrupt statement following our interview, and medication is non-formulary while inpatient. Discussed that this medication can be prescribed at discharge after further discussion, or could be discussed with his outpatient provider as well. Plan (1) Depression 02/21 -long-standing alcohol abuse, which clouds the picture and precludes diagnosis of major depressive disorder, as he has not had a period of sobriety. He has been treated with several SSRI antidepressants in the past, but has a pattern of nonadherence with treatment, so fluoxetine is a good choice given its long half-life and less risk of missed doses. Will increase to 60mg daily, as has never been on higher doses. -Every 15 minute checks for safety, attend groups and work on coping skills and discharge safety plan. -Encourage family meeting with local supports. -Encourage treatment for his alcoholism, as it will be difficult to address mood symptoms as long as he is drinking. He would benefit from outpatient dual diagnosis treatment, with a substance abuse counselor and psychiatrist. ? [facility]? -Coordinate care with PCP, JCARLOS Ralph who has been prescribing his fluoxetine. 02/22 - Continue fluoxetine 60mg daily - PRN trazodone 50mg tonight if needed for sleep - Pt willing for phone meeting with his son - Continue to explore willingness for ETOH abuse treatment 02/23 -Continue current medications. Meeting scheduled with son. (2) Alcohol use disorder, severe, dependence 02/21 - The patient's AUDIT score suggests problematic drinking (Zone III WHO). Brief intervention was offered and accepted Intervention was greater than 5 min in length. Brief interventions include: 1. Assess Readiness to Quit, 2. Advise: Help Patient to Reduce or Abstain from Alcohol, 3. Agree: Set Specific, Feasible Goals, 4. Assist: Anticipate barriers, Problem-Solving Solutions. Social work to 5. Arrange: Referrals to appropriate treatment. Summary of intervention: The patient is in precontemplation stage with regards to transtheoretical model of change. The patient is advised recommendations are for inpatient rehab and abstinence from alcohol, due to the risks of , withdrawal, and organ damage, worsening of depression, suicide, and risk of interactions with prescription medications. The patient is adamantly refusing rehab and AA, so we will explore outpatient treatment options (IOP), and will be provided with recovery materials to continue to education self on how to cope with their condition without drinking. -Continue AWSS with gabapentin taper and lorazepam as needed for withdrawal symptoms. -Patient states he has a full bottle of liquor at home, so would recommend someone be identified to remove it. He is refusing this currently. Suggested that he ask his friend David, whose house he lives in, to remove it, but he remains unwilling. -Had a kamlesh discussion with the patient about the severity of his alcoholism and his resistance to making real changes to his behavior. He admits that he is ambivalent about change, and encouraged him to continue to explore this here. 02/22 - Pt reports interest in alcohol deterrent medication such as naltrexone, as had been offered in the past - Will allow patient to consider further as it had been abruptly mentioned - Discussed ability to discuss with outpatient providers as well, as is non- formulary here and could not be started until discharge 02/23 - Patient agreed to IOP at [place], appointment 03/01/2018. - Recommend he contact a friend to remove alcohol from the home prior to discharge. (3) Cannabis abuse 02/21 -reviewed risks of ongoing substance abuse, including health problems, drug drug interactions, and legal problems, and recommendations for abstinence and substance abuse treatment. Discharge / Aftercare Planning Primary Care Physician: Name: ANALYHarry Grey Psychiatrist: Name: [facility] Date of Appointment: Mar 01, 2018 Time of Appointment: 1:30 pm Appointment Notes: [address] [address], [place] [address] Therapist: Name: [facility] Date of Appointment: Mar 01, 2018 Time of Appointment: 1:30 pm Appointment Notes: [address] [place] [address], [place] [address] Visit Code E&M Code: 60610 Inventory Assets Strengths: Willing for treatment, stable housing Needs: Substance abuse treatment/meaningful plan for sobriety, mental health treatment , improved adherence to treatment, sobriety from substances Risk Factors Assessment Male: Yes : Yes /single/: Yes Higher / Fall in social status: No Health problems: Yes Mental Health Diagnoses: Yes Substance use disorders: Yes Previous attempt: Yes Family history of suicide: No Previous psychiatric stay: Yes Hopelessness: Yes Smoker: Yes Protective Factors Assessment : No Responsible for young children: No Employed: No Stable relationships: No Good rapport with provider: No (No outpatient providers) Data Vital Signs Last 24 Hrs: Date Time Temp Pulse Resp B/P (MAP) Pulse Ox O2 Delivery O2 Flow Rate FiO2 02/23/18 09:05 36.4 73 16 149/105 02/23/18 06:55 36.7 73 18 161/80 71 149/103 02/22/18 20:09 36.9 81 18 123/80 02/22/18 16:10 36.8 90 20 152/98 02/22/18 15:15 36.7 80 16 140/98 02/22/18 12:51 36.6 85 16 155/113 Meds Administered Last 24 Hrs: Meds Administered (Past 24Hrs) Medications (Trade) Dose Ordered Sig/Carlo Route Start Time Stop Time Status Last Admin Dose Admin Gabapentin (Neurontin Tab) 600 mg Q8H PO 02/21/18 22:00 02/22/18 14:01 DC 02/22/18 12:59 600 MG Gabapentin (Neurontin Tab) 600 mg Q12H PO 02/23/18 00:00 02/23/18 12:01 DC 02/22/18 23:40 600 MG Fluoxetine HCl (Prozac Cap) 60 mg DAILY PO 02/22/18 09:00 03/23/18 08:59 02/23/18 09:01 60 MG Nicotine (Nicoderm Cq 21MG Patch) 1 patch QAM TD 02/22/18 09:00 02/23/18 08:55 DC 02/22/18 09:53 1 PATCH Nicotine (Nicoderm Cq 21MG Patch) 1 patch 1255 ONCE TD 02/21/18 12:55 02/21/18 13:29 DC 02/21/18 13:59 1 PATCH Miscellaneous (Remove Nicoderm Patch) 1 ea HS N/A 02/21/18 22:00 02/23/18 09:24 DC 02/22/18 23:54 1 EA Trazodone HCl (Desyrel Tab) 50 mg HS PRN PO 02/22/18 12:45 03/24/18 12:44 02/22/18 21:12 50 MG Nicotine (Nicoderm Cq 7 Mg Patch) 1 patch QAM TD 02/23/18 09:45 03/25/18 09:44 02/23/18 09:51 1 PATCH Problem Qualifiers (1) Depression: Depression Type: unspecified Qualified Codes: F32.9 - Major depressive disorder, single episode, unspecified
[2018-02-23] MEDS: GABAPENTIN 600MG Q12H DOSE PO SCH (14:38)
[2018-02-23 16:13] VITALS: BP 129/84; PULSE 87; TEMP 36.6
[2018-02-23 20:42] VITALS: BP 190/117; PULSE 107; TEMP 37.3
[2018-02-23] MEDS: LORAZEPAM 1 MG TAB PO PRN (20:48)
[2018-02-23] MEDS: hydrOXYzine HCL 25 MG TAB PO PRN (21:33)
[2018-02-23 21:35] VITALS: BP 144/99; PULSE 86
[2018-02-24] MEDS: hydrOXYzine HCL 25 MG TAB PO PRN (02:18)
[2018-02-24 06:55] VITALS: BP_SYST 144; BP_SYST 153; BP_DIAS 93; BP_DIAS 97; PULSE 58; PULSE 63; TEMP 36.5
[2018-02-24] MEDS: LISINOPRIL 10 MG TAB PO SCH (08:51)
[2018-02-24] MEDS: FLUOXETINE HCL 20 MG CAP PO SCH (08:51)
[2018-02-24] MEDS: NICOTINE 7 MG/24 HR TDSY TD SCH (08:54)
[2018-02-24 09:19] VITALS: BP 139/98; PULSE 75; TEMP 36.8
[2018-02-24] MEDS: ACETAMINOPHEN 325 MG TAB PO PRN ×2 (09:58→22:35)
[2018-02-24] MEDS: GABAPENTIN 600MG X1 DOSE PO SCH ×2 (12:00→18:54)
[2018-02-24 12:21] VITALS: BP 137/95; PULSE 76; TEMP 36.6
--- NOTE | 2018-02-24 14:51 | Psychiatric Progress Notes ---
Progress Note Date of Service Feb 24, 2018. Interval History Chris Kirkland is a 52-year-old male from [place] who has a history of alcohol dependence and depression and was admitted voluntarily on Feb 20, 2018 at 19:47 for suicidal and homicidal ideation. Chief Complaint "Today is not a good day ". Subjective Patient was seen & assessed interval progress reviewed with Treatment Team. Staff report he had been going to groups yesterday, but today has been isolating in bed, and told staff that he was "taking the day off and want to stay in bed." He became irritable and staff challenge this and encouraged him to engage in treatment. He requested and received multiple doses of hydroxyzine last night for sleep. He continues to tell staff that he does not feel safe outside the hospital. On my assessment, he states that he is having a bad day, "it started out pretty rough, did not want to get out of bed." He says that at home, he will drink heavily, then "sleep it off" for several days, just spending his time in bed watching TV. He continues to refuse any meaningful interventions with want any of his friends or family involved in his treatment, "it is something I have to do myself," and will not allow anyone to go to his home and remove the alcohol prior to discharge. He continues to refuse rehab, but states that he does not feel he would be stable outside of the hospital, thinks he would immediately relapse and hurt himself. He struggles to reconcile these reports, and states that he does not think he will be ready for discharge anytime soon as he does not think he would be stable outside of the hospital, "I do not trust myself." He has scored on the AWSS protocol, receiving 1 mg of Lorazepam daily for the past 2 days. Review of Systems Denies tremor, sweats, nausea, vomiting. Sleep Information Total Hours of Sleep: 5.00 Meal Information Percent of Breakfast Consumed: 100 Percent of Lunch Consumed: 100 Percent of Dinner Consumed: 100 Mental Status Exam During interview pt is: alert and oriented, cooperative Appearance: appropriately dressed, appropriately groomed, other (obese, tattoos on bilateral forearms) Eye contact is: good Motor behavior is: steady gait & station, no abnormal motor movements Speech: normal in rate, rhythm & volume (Very talkative) Affect: mood congruent, euthymic Mood is: other ("Better") Thought process: other (Often answers questions with unrelated information, evasive, turning the topic away from his drinking; tends to blame others) Thought content: cognitive distortions Suicidal thought are: present (States if he were not in the hospital, he would get drunk, "half dark thoughts," and possibly hurt himself. He cannot contract for safety outside of the hospital.) Homicidal thoughts are: denied Hallucinations: denies auditory, denies visual Cognition: memory grossly intact (except when intoxicated), attention grossly intact, language grossly intact Intelligence estimated to be: consistent with level of education Insight: impaired Judgement: impaired Impression Mood is improving, and although he states willingness for substance abuse treatment, he remains resistant toward actual change. Receiving medication for alcohol withdrawal, family meeting with son this week, and arranging dual diagnosis treatment. Inpatient treatment is medically necessary due to high risk for suicide if discharged. Plan (1) Depression 02/21 -long-standing alcohol abuse, which clouds the picture and precludes diagnosis of major depressive disorder, as he has not had a period of sobriety. He has been treated with several SSRI antidepressants in the past, but has a pattern of nonadherence with treatment, so fluoxetine is a good choice given its long half-life and less risk of missed doses. Will increase to 60mg daily, as has never been on higher doses. -Every 15 minute checks for safety, attend groups and work on coping skills and discharge safety plan. -Encourage family meeting with local supports. -Encourage treatment for his alcoholism, as it will be difficult to address mood symptoms as long as he is drinking. He would benefit from outpatient dual diagnosis treatment, with a substance abuse counselor and psychiatrist. ? [facility]? -Coordinate care with PCP, JCARLOS Ralph who has been prescribing his fluoxetine. 02/22 - Continue fluoxetine 60mg daily - PRN trazodone 50mg tonight if needed for sleep - Pt willing for phone meeting with his son - Continue to explore willingness for ETOH abuse treatment 02/23 -Continue current medications. Meeting scheduled with son. 02/24 -Encourage patient to attend and participate in all groups and unit programming, and work on concrete plans for maintaining sobriety, mood stability , and safety after discharge. Meeting with son tomorrow. (2) Alcohol use disorder, severe, dependence 02/21 - The patient's AUDIT score suggests problematic drinking (Zone III WHO). Brief intervention was offered and accepted Intervention was greater than 5 min in length. Brief interventions include: 1. Assess Readiness to Quit, 2. Advise: Help Patient to Reduce or Abstain from Alcohol, 3. Agree: Set Specific, Feasible Goals, 4. Assist: Anticipate barriers, Problem-Solving Solutions. Social work to 5. Arrange: Referrals to appropriate treatment. Summary of intervention: The patient is in precontemplation stage with regards to transtheoretical model of change. The patient is advised recommendations are for inpatient rehab and abstinence from alcohol, due to the risks of , withdrawal, and organ damage, worsening of depression, suicide, and risk of interactions with prescription medications. The patient is adamantly refusing rehab and AA, so we will explore outpatient treatment options (IOP), and will be provided with recovery materials to continue to education self on how to cope with their condition without drinking. -Continue AWSS with gabapentin taper and lorazepam as needed for withdrawal symptoms. -Patient states he has a full bottle of liquor at home, so would recommend someone be identified to remove it. He is refusing this currently. Suggested that he ask his friend David, whose house he lives in, to remove it, but he remains unwilling. -Had a kamlesh discussion with the patient about the severity of his alcoholism and his resistance to making real changes to his behavior. He admits that he is ambivalent about change, and encouraged him to continue to explore this here. 02/22 - Pt reports interest in alcohol deterrent medication such as naltrexone, as had been offered in the past - Will allow patient to consider further as it had been abruptly mentioned - Discussed ability to discuss with outpatient providers as well, as is non- formulary here and could not be started until discharge 02/23 - Patient agreed to IOP at [place], appointment 03/01/2018. - Recommend he contact a friend to remove alcohol from the home prior to discharge. 02/24 - Patient continues to refuse inpatient rehab, or to allow anyone to remove the alcohol from his home prior to discharge. He has been referred to [place] for IOP. - Discussed medication assisted treatments of alcoholism, including disulfiram and naltrexone, both of which are nonformulary. (3) Cannabis abuse 7/22 -reviewed risks of ongoing substance abuse, including health problems, drug drug interactions, and legal problems, and recommendations for abstinence and substance abuse treatment. Discharge / Aftercare Planning Primary Care Physician: Name: Tammy Grey Psychiatrist: Name: SanchezAlona Botello Date of Appointment: Mar 01, 2018 Time of Appointment: 1:30 pm Appointment Notes: [address] [facility] [address], [place] [address] Therapist: Name: [facility] Date of Appointment: Mar 01, 2018 Time of Appointment: 1:30 pm Appointment Notes: [address] [facility] [address], [place] [address] Visit Code E&M Code: 25881 Inventory Assets Strengths: Willing for treatment, stable housing Needs: Substance abuse treatment/meaningful plan for sobriety, mental health treatment , improved adherence to treatment, sobriety from substances Risk Factors Assessment Male: Yes : Yes /single/: Yes Higher / Fall in social status: No Health problems: Yes Mental Health Diagnoses: Yes Substance use disorders: Yes Previous attempt: Yes Family history of suicide: No Previous psychiatric stay: Yes Hopelessness: Yes Smoker: Yes Protective Factors Assessment : No Responsible for young children: No Employed: No Stable relationships: No Good rapport with provider: No (No outpatient providers) Data Vital Signs Last 24 Hrs: Date Time Temp Pulse Resp B/P (MAP) Pulse Ox O2 Delivery O2 Flow Rate FiO2 02/24/18 12:21 36.6 76 16 137/95 02/24/18 09:19 36.8 75 18 139/98 02/24/18 06:55 36.5 58 18 153/97 63 144/93 02/23/18 21:35 86 16 144/99 02/23/18 20:42 37.3 107 16 190/117 02/23/18 16:13 36.6 87 16 129/84 Meds Administered Last 24 Hrs: Meds Administered (Past 24Hrs) Medications (Trade) Dose Ordered Sig/Carlo Route Start Time Stop Time Status Last Admin Dose Admin Gabapentin (Neurontin Tab) 600 mg Q12H PO 02/23/18 00:00 02/23/18 12:01 DC 02/23/18 14:38 600 MG Nicotine (Nicoderm Cq 7 Mg Patch) 1 patch QAM TD 02/23/18 09:45 03/25/18 09:44 02/24/18 08:54 1 PATCH Miscellaneous (Remove Nicoderm Patch) 1 ea HS N/A 02/23/18 22:00 03/25/18 21:59 02/23/18 20:46 1 EA Problem Qualifiers (1) Depression: Depression Type: unspecified Qualified Codes: F32.9 - Major depressive disorder, single episode, unspecified
[2018-02-24 16:05] VITALS: BP 139/98; PULSE 82; TEMP 36.6
[2018-02-24 20:51] VITALS: BP 150/99; PULSE 84; TEMP 36.4
[2018-02-24] MEDS: TRAZODONE HCL 50 MG TAB PO PRN (22:31)
[2018-02-25] VITALS (7 sets, daily range): BP systolic 112–131; BP diastolic 78–88; PULSE 62–82; TEMP 36.5–36.8
[2018-02-25] MEDS: FLUOXETINE HCL 20 MG CAP PO SCH (09:03)
[2018-02-25] MEDS: LISINOPRIL 10 MG TAB PO SCH (09:04)
[2018-02-25] MEDS: NICOTINE 7 MG/24 HR TDSY TD SCH (09:07)
[2018-02-25] MEDS: ACETAMINOPHEN 325 MG TAB PO PRN ×2 (10:04→21:13)
--- NOTE | 2018-02-25 11:02 | Psychiatric Progress Notes ---
Progress Note Date of Service Feb 25, 2018. Interval History Chris Kirkland is a 52-year-old male from [place] who has a history of alcohol dependence and depression and was admitted voluntarily on Feb 20, 2018 at 19:47 for suicidal and homicidal ideation. Chief Complaint "I felt pushed this morning.". Subjective Patient was seen & assessed interval progress reviewed with Treatment Team. The patient is irritable today feeling that he was not given time to wake up and eat breakfast before people wanted him to engage. He says that he is feeling better today than yesterday, in that yesterday he wanted to be left along to "take a day off", but today is participating in programming. We talk about engaging in an exercise to identify barriers to moving forward but he seems more invested in talking about why that won't work, and that he knows his behaviors and when he drinks. He also throws up reasons why he can't engage in further risk mitigation such as having alcohol removed from his house before he gets home ("I have to do it myself"). we talk about AA, which he says he has attended in the past, but felt like he was walking into a click, and is not currently attending. When I say we will print him a list of local meetings, he says he already has that. When I say we should provide him with our copy of the Big Book, he says he has that at home and isn't really working the steps. He claims not to have his landlord's number to reach out to him, and claims to have no other friends or acquaintances to reach out to as part of his support network. We talk again about rehab, which he continues to refuse saying that he 's been there 2 or 3 times and went back to drinking immediately after. I then tell him that if there are no further treatment interventions that he is willing to engage in then we are still looking at discharge tomorrow, to which he says with a smile "It'll be an interesting weekend.". He then returns to my office several minutes later to say that if we're going to discharge him tomorrow, then why not let him go today and asks if he can sign himself out. Review of Systems Constitutional: No fever, No chills, No sweats, No weight loss, No weakness, No fatigue, No problem reported ENT: No hearing loss, No unusual epistaxis, No nasal symptoms, No sore throat, No tinnitus, No dental problems, No trouble swallowing, No problem reported Respiratory: No cough, No sputum, No wheezing, No shortness of breath, No dyspnea on exertion, No dyspnea at rest, No hemoptysis, No problem reported Cardiovascular: No chest pain, No orthopnea, No PND, No edema, No claudication , No palpitations, No problem reported Abdomen: No pain, No nausea, No vomiting, No diarrhea, No constipation, No GI bleeding, No problem reported Musculoskeletal: No joint pain, No muscle pain, No swelling, No calf pain, No problem reported Neurologic: No memory loss, No paralysis, No weakness, No numbness/tingling, No vertigo, No balance problems, No problem reported Psychiatric: + problem reported (irritable, feeling like he is "being pushed") Integumentary: No rash, No itch, No new/changing skin lesions, No color change , No bleeding, No problem reported Sleep Information Total Hours of Sleep: 5.50 Meal Information Percent of Breakfast Consumed: 100 Percent of Lunch Consumed: 100 Percent of Dinner Consumed: 100 Mental Status Exam During interview pt is: alert and oriented Appearance: appropriately dressed, appropriately groomed, other (obese, tattoos on bilateral forearms) Eye contact is: good Motor behavior is: steady gait & station, no abnormal motor movements Speech: normal in rate, rhythm & volume (Very talkative) Affect: mood congruent, euthymic Mood is: other ("Better") Thought process: other (divergent) Thought content: cognitive distortions Suicidal thought are: denied Homicidal thoughts are: denied Hallucinations: denies auditory, denies visual Cognition: memory grossly intact (except when intoxicated), attention grossly intact, language grossly intact Intelligence estimated to be: consistent with level of education Insight: impaired Judgement: impaired Impression Mood is improved, but he is still not engaging in treatment in meaningful ways. His displaces ownership for his alcoholism and treatment, and is quite passive aggressive in his responses ie asking for DC today since we are thinking about DC tomorrow, not his chosen day of Thursday. He will not allow us contact with his landlord, nor to have alcohol removed from his home. We will encourage him to process this reaction in the setting of his past behaviors and attemp to get him to identify and engage in healthier means to cope. Plan (1) Depression 02/21 -long-standing alcohol abuse, which clouds the picture and precludes diagnosis of major depressive disorder, as he has not had a period of sobriety. He has been treated with several SSRI antidepressants in the past, but has a pattern of nonadherence with treatment, so fluoxetine is a good choice given its long half-life and less risk of missed doses. Will increase to 60mg daily, as has never been on higher doses. -Every 15 minute checks for safety, attend groups and work on coping skills and discharge safety plan. -Encourage family meeting with local supports. -Encourage treatment for his alcoholism, as it will be difficult to address mood symptoms as long as he is drinking. He would benefit from outpatient dual diagnosis treatment, with a substance abuse counselor and psychiatrist. ? [facility]? -Coordinate care with PCP, JCARLOS Ralph who has been prescribing his fluoxetine. 02/22 - Continue fluoxetine 60mg daily - PRN trazodone 50mg tonight if needed for sleep - Pt willing for phone meeting with his son - Continue to explore willingness for ETOH abuse treatment 02/23 -Continue current medications. Meeting scheduled with son. 02/24 -Encourage patient to attend and participate in all groups and unit programming, and work on concrete plans for maintaining sobriety, mood stability , and safety after discharge. Meeting with son tomorrow. (2) Alcohol use disorder, severe, dependence 02/21 - The patient's AUDIT score suggests problematic drinking (Zone III WHO). Brief intervention was offered and accepted Intervention was greater than 5 min in length. Brief interventions include: 1. Assess Readiness to Quit, 2. Advise: Help Patient to Reduce or Abstain from Alcohol, 3. Agree: Set Specific, Feasible Goals, 4. Assist: Anticipate barriers, Problem-Solving Solutions. Social work to 5. Arrange: Referrals to appropriate treatment. Summary of intervention: The patient is in precontemplation stage with regards to transtheoretical model of change. The patient is advised recommendations are for inpatient rehab and abstinence from alcohol, due to the risks of , withdrawal, and organ damage, worsening of depression, suicide, and risk of interactions with prescription medications. The patient is adamantly refusing rehab and AA, so we will explore outpatient treatment options (IOP), and will be provided with recovery materials to continue to education self on how to cope with their condition without drinking. -Continue AWSS with gabapentin taper and lorazepam as needed for withdrawal symptoms. -Patient states he has a full bottle of liquor at home, so would recommend someone be identified to remove it. He is refusing this currently. Suggested that he ask his friend David, whose house he lives in, to remove it, but he remains unwilling. -Had a kamlesh discussion with the patient about the severity of his alcoholism and his resistance to making real changes to his behavior. He admits that he is ambivalent about change, and encouraged him to continue to explore this here. 02/22 - Pt reports interest in alcohol deterrent medication such as naltrexone, as had been offered in the past - Will allow patient to consider further as it had been abruptly mentioned - Discussed ability to discuss with outpatient providers as well, as is non- formulary here and could not be started until discharge 02/23 - Patient agreed to IOP at [place], appointment 03/01/2018. - Recommend he contact a friend to remove alcohol from the home prior to discharge. 02/24 - Patient continues to refuse inpatient rehab, or to allow anyone to remove the alcohol from his home prior to discharge. He has been referred to [place] for IOP. - Discussed medication assisted treatments of alcoholism, including disulfiram and naltrexone, both of which are nonformulary. 02/25 - Still not engaging in meaningful steps toward sobriety - Still refusing rehab (3) Cannabis abuse 02/21 -reviewed risks of ongoing substance abuse, including health problems, drug drug interactions, and legal problems, and recommendations for abstinence and substance abuse treatment. Discharge / Aftercare Planning Primary Care Physician: Name: ANALYHarry Grey Psychiatrist: Name: [facility] Date of Appointment: Mar 01, 2018 Time of Appointment: 1:30 pm Appointment Notes: [address] [place] [address], [place], [place] [address] Therapist: Name: Alec Counseling Date of Appointment: Mar 01, 2018 Time of Appointment: 1:30 pm Appointment Notes: [address] [place] [address], [place], [place] [address] Visit Code E&M Code: 60292 Inventory Assets Strengths: Willing for treatment, stable housing Needs: Substance abuse treatment/meaningful plan for sobriety, mental health treatment , improved adherence to treatment, sobriety from substances Risk Factors Assessment Male: Yes : Yes /single/: Yes Higher / Fall in social status: No Health problems: Yes Mental Health Diagnoses: Yes Substance use disorders: Yes Previous attempt: Yes Family history of suicide: No Previous psychiatric stay: Yes Hopelessness: Yes Smoker: Yes Protective Factors Assessment : No Responsible for young children: No Employed: No Stable relationships: No Good rapport with provider: No (No outpatient providers) Data Vital Signs Last 24 Hrs: Date Time Temp Pulse Resp B/P (MAP) Pulse Ox O2 Delivery O2 Flow Rate FiO2 02/25/18 07:55 36.5 70 14 131/87 02/25/18 06:58 36.5 62 18 131/86 70 112/78 02/24/18 20:51 36.4 84 18 150/99 02/24/18 16:05 36.6 82 18 139/98 02/24/18 12:21 36.6 76 16 137/95 Meds Administered Last 24 Hrs: Meds Administered (Past 24Hrs) Medications (Trade) Dose Ordered Sig/Carlo Route Start Time Stop Time Status Last Admin Dose Admin Gabapentin (Neurontin Tab) 600 mg Q24H PO 02/24/18 12:00 02/24/18 12:01 DC 02/24/18 12:00 600 MG Miscellaneous (Remove Nicoderm Patch) 1 ea HS N/A 02/23/18 22:00 03/25/18 21:59 02/24/18 22:30 1 EA Lab Results Last 24 Hrs: 02/20/18 09:02 Red Blood Count 4.27, Mean Corpuscular Volume 92.5, Mean Corpuscular Hemoglobin 33.7, Mean Corpuscular Hemoglobin Concent 36.5, Mean Platelet Volume 9.4, Neutrophils (%) (Auto) 38.6, Lymphocytes (%) (Auto) 51.8, Monocytes (%) (Auto) 5.8, Eosinophils (%) (Auto) 3.1, Basophils (%) (Auto) 0.4, Neutrophils # (Auto) 2.64, Lymphocytes # (Auto) 3.55, Monocytes # (Auto) 0.40, Eosinophils # (Auto) 0.21, Basophils # (Auto) 0.03 02/20/18 09:02 Test 02/20/18 08:45 02/20/18 08:54 02/20/18 09:02 02/20/18 18:07 Urine Color YELLOW Urine Appearance CLEAR (CLEAR) Urine pH 5.0 (4.5-7.5) Urine Specific [place] 1.020 (1.000-1.030) Urine Protein NEG (NEG) Urine Glucose (UA) NEG (NEG) Urine Ketones NEG (NEG) Urine Occult Blood TRACE (NEG) Urine Nitrite NEG (NEG) Urine Bilirubin NEG (NEG) Urine Urobilinogen NEG (NEG) Urine Leukocyte Esterase NEG (NEG) Urine WBC (Auto) 1-5 /hpf (0-5) Urine RBC (Auto) 0-4 /hpf (0-4) Urine Hyaline Casts (Auto) 1-5 /lpf (0-5) Urine Epithelial Cells (Auto) 5-10 /lpf (0-5) Urine Bacteria (Auto) NEG (NEG) Urine Opiates Screen NEG (NEG) Urine Methadone, Qualitative NEG (NEG) Urine Barbiturates NEG (NEG) Urine Phencyclidine (PCP) Level NEG (NEG) Ur Amphetamine/Methamphetamine NEG (NEG) MDMA (Ecstasy) Screen NEG (NEG) Urine Benzodiazepines Screen NEG (NEG) Urine Cocaine Metabolite NEG (NEG) Urine Marijuana (THC) POS (NEG) Urine Marijuana (THC Carboxy Acid) 29 NG/ML (CUTOFF=5) Bedside Glucose 113 mg/dl (70-99) White Blood Count 6.85 K/uL (4.8-10.8) Red Blood Count 4.27 M/uL (4.7-6.1) Hemoglobin 14.4 g/dL (14.0-18.0) Hematocrit 39.5 % (42-52) Mean Corpuscular Volume 92.5 fL (80-100) Mean Corpuscular Hemoglobin 33.7 pg (25-34) Mean Corpuscular Hemoglobin Concent 36.5 g/dl (32-36) Platelet Count 226 K/uL (130-400) Mean Platelet Volume 9.4 fL (7.4-10.4) Neutrophils (%) (Auto) 38.6 % Lymphocytes (%) (Auto) 51.8 % Monocytes (%) (Auto) 5.8 % Eosinophils (%) (Auto) 3.1 % Basophils (%) (Auto) 0.4 % Neutrophils # (Auto) 2.64 K/uL (1.4-6.5) Lymphocytes # (Auto) 3.55 K/uL (1.2-3.4) Monocytes # (Auto) 0.40 K/uL (0.11-0.59) Eosinophils # (Auto) 0.21 K/uL (0-0.5) Basophils # (Auto) 0.03 K/uL (0-0.2) RDW Standard Deviation 46.7 fL (36.4-46.3) RDW Coefficient of Variation 13.9 % (11.5-14.5) Immature Granulocyte % (Auto) 0.3 % Immature Granulocyte # (Auto) 0.02 K/uL (0.00-0.02) Anion Gap 8.0 mmol/L (3-11) Est Creatinine Clear Calc Drug Dose 111.9 ml/min Estimated GFR () 99.7 Estimated GFR (Non- 86.0 BUN/Creatinine Ratio 17.4 (10-20) Calcium Level 9.2 mg/dl (8.5-10.1) Total Bilirubin 0.3 mg/dl (0.2-1) Direct Bilirubin < 0.1 mg/dl (0-0.2) Aspartate Amino Transf (AST/SGOT) 32 U/L (15-37) Alanine Aminotransferase (ALT/SGPT) 51 U/L (12-78) Alkaline Phosphatase 79 U/L (45-117) Total Protein 8.2 gm/dl (6.4-8.2) Albumin 4.5 gm/dl (3.4-5.0) Globulin 3.7 gm/dl (2.5-4.0) Albumin/Globulin Ratio 1.2 (0.9-2) Thyroid Stimulating Hormone (TSH) 1.400 uIu/ml (0.300-4.500) Ethyl Alcohol mg/dL 96.3 mg/dl (0-3) Problem Qualifiers (1) Depression: Depression Type: unspecified Qualified Codes: F32.9 - Major depressive disorder, single episode, unspecified
[2018-02-25] MEDS: TRAZODONE HCL 50 MG TAB PO PRN (21:13)
[2018-02-26] MEDS: hydrOXYzine HCL 25 MG TAB PO PRN (00:34)
[2018-02-26 06:46] VITALS: BP_SYST 123; BP_SYST 129; BP_DIAS 85; BP_DIAS 87; PULSE 66; PULSE 82; TEMP 36.5
[2018-02-26] MEDS: FLUOXETINE HCL 20 MG CAP PO SCH (08:58)
[2018-02-26] MEDS: NICOTINE 7 MG/24 HR TDSY TD SCH (08:58)
[2018-02-26] MEDS: LISINOPRIL 10 MG TAB PO SCH (08:58)
[2018-02-26] MEDS: ACETAMINOPHEN 325 MG TAB PO PRN (09:02)
[2018-02-26 09:14] VITALS: BP 125/88; PULSE 84; TEMP 36.6
--- NOTE | 2018-02-26 09:30 | Discharge Instructions ---
Discharge Information Report Includes Report will include the: Discharge Instructions & Summary Admission Admission Date / Time: Feb 20, 2018 at 19:47 Reason for Admission: Suicidal Ideation Discharge Discharge Diagnosis / Problem: Depression, Alcohol Use Disorder Condition at Discharge: Fair Discharge Goals Goal(s): Improve function, Increase independence, Improve disease control, Learn about illness, Therapeutic intervention, Prevent Disease Progression Activity Recommendations Activity Limitations: resume your previous activity . Instructions / Follow-Up Instructions / Follow-Up . SPECIAL CARE INSTRUCTIONS: 1. Follow through with your scheduled aftercare appointments. If unable to keep an appointment, please call to reschedule. 2. Take your medication only as prescribed. Medication should not be changed or stopped without the approval of your doctor. In the event of worsening symptoms or concerns about side effects, contact your doctor immediately. 3. Utilize new healthy coping skills, anger management skills, and stress management skills learned during your hospitalization. Journal feelings and process them with a support person. Identify stressors or situations that may result in relapse, deterioration or inappropriate behaviors and develop a plan to deal with those issues. 4. If your coping skills are ineffective and you are in crisis, contact your outpatient providers for direction. If unable to reach your providers, please call the CAN HELP LINE AT or go to the closest Emergency Room. 5. Avoid alcohol and un-prescribed drugs. 6. You have been provided with the Mental Health Advance Directives Pamphlet for your review. AFTERCARE APPOINTMENTS: * Please call your insurance company prior to your scheduled appointment to confirm your aftercare providers are covered. Take your insurance information to your appointments. . Discharge / Aftercare Planning Primary Care Physician: Name: [facility] Psychiatrist: Name: Alec Botello Date of Appointment: Mar 01, 2018 Time of Appointment: 1:30 pm Appointment Notes: [address] [facility] [address], [place] [address] Therapist: Name Of Therapist: [facility] Date of Appointment: Mar 01, 2018 Time of Appointment: 1:30 pm Appointment Comments: [address] [facility] [address], [place] [address] . Follow-Up Care Plan for Follow-Up Care: Pt's aftercare was reviewed and updated during this admission to allow for timely followup with psychiatric providers following discharge. Pt will be returning to their current psychiatrist for management of medications and therapist. Current Hospital Diet Patient's current hospital diet: Regular Diet Discharge Diet Recommended Diet: Regular Diet Procedures Procedures Performed: No Pending Studies Pending Studies at Discharge: No Medical Emergencies . Who to Call and When: Medical Emergencies: For questions or emergencies related to your hospital stay, please contact the Inpatient Behavioral Health Unit at [phone]. A line ordering clinician is on-call 23/02 for the Behavioral Health Unit for emergencies At any time you feel your situation is an emergency, you may also call 911 immediately. . Non-Emergent Contact Non-Emergency issues call your: Primary Care Provider, Psychiatrist, Therapist Advance Directives Do You Have an Existing Mental: No Existing Living Will: No Existing Power of Audit Tech: No Advance Directives Info Given: To Pt/S.O. Advance Directives Reason: Declines as Mental Health Visit. Discharge Summary Admission HPI Per the Admitting provider: According to records, the patient presented to the emergency room yesterday morning with police, after he made homicidal and suicidal statements, threatening to michelle a bank or gas station, and police completed a 302 petition. It states that yesterday morning he called 911 threatening to michelle a bank, and police responded to his residence, where he made multiple statements that he was going to get a gun and drive to [facility] to "kill niggers," that he was going to use his finger as a gun and [facility], and wanted his life to be over. He was intoxicated in the ER with a blood alcohol level of 347, and was uncooperative with initial assessment. He told ER staff he wanted to "shoot drug dealers," and michelle a bank, stating he was tired of his life and wanted to be . He denied having access to a gun. His pharmacy was contacted to confirm his outpatient medications, and although he is prescribed Lipitor, he states he never takes it. He was assessed once sober, and reported worsening depressive symptoms with sadness, lack of motivation, hypersomnia, guilt, helplessness, hopelessness, and daily suicidal thoughts. He reported constant anxiety, and ongoing heavy alcohol use, drinking to intoxication multiple times weekly, and sleeping off the alcohol on the days in between his binges. He denied withdrawal symptoms in the ER, and vital signs were normal. His PCP prescribes fluoxetine 40 mg daily, but he admitted to missing multiple doses weekly. Once sober, he denied homicidal thoughts, and stated that he had made threats to shoot the drug dealers in [place] who were "camping out" his daughter, but denied any intent to follow through on this, stating that he does not have a gun or the ability to buy one, that he was just upset and thinking about his daughter's addiction and current circumstances, as she lives in [place] and is struggling. He endorsed multiple psychosocial stressors , stating he has no local supports, is unemployed as he recently lost his job, has no outpatient mental health care, and is financially stressed. The 302 petition was dismissed, and he signed in voluntarily. On my assessment, the patient states he has been distraught about his daughter in [place], who has been there for 5-6 years, is addicted to heroin, and has been "selling herself, hustles to get money." She has been in and out of rehab, got out of a [place] rehab in October, and had been back in [place]. He heard from " a gentleman down there who looks out for her" that she "got crazy, combative, trashed the room she was staying in," and he got upset, "all fired up, was mouthy and stuff, called 911, they told me they can't do anything, they know all about it." He has also been calling the [place] police, who told him they can't do anything, as she's an adult. She's been arrested multiple times, and he "keeps paying the fines and stuff, she's my daughter." He feels guilty about his daughter's condition, questioning his past decisions. He admits to making threats to go to [place] and shoot drug dealers, michelle a bank, and kill himself, and says he told the police to take him to senior living. He says he doesn' t know why he said he wanted to michelle a bank or kill people, "I was just talking out of my ass, I wasn't in my right state of mind," noting he was intoxicated. He relates his low mood to his daughter's prediction, stating he thinks about it daily and "it weighs on me." Admits to drinking 3-7 days a week, "a couple big bottles" of liquor a week. Will go for days at a time of "just lying in bed , drinking." Admits his drinking has resulted in loss of multiple jobs, legal problems, and worsening mood, and knows he needs to stop drinking, but hasn't been able to, and is refusing rehab, AA, etc., "I know what I need to do." Reports poor support, son just moved to another state and youngest daughter is in [place] for a beaming machine operator. Is living in an attached apartment at a friend's house, and says friend is "sick of my drinking." Not sure what his goals of treatment are, "just a time of sobriety, every day living is a hassle to me." He endorses hopelessness, "this fing life isn't worth living, just wish I could go to sleep and not wake up." Denies symptoms consistent with elda, psychosis, PTSD, OCD. Had lengthy discussion about his drinking, as he identifies a pattern whereby any time something else in his life conflicts with his drinking, such as jobs or relationships, he chooses the drinking and will quit the job or in the relationship. He admits that he is not sure if he is ready to give it up, that he may be intentionally slowly killing himself with the alcohol, and that he leans on it as a way to cope. He gives reasons why he cannot or will not go to rehab, do IOP, return to AA, removed alcohol from his home, allow us to talk with friends or family, or change his current pattern of behavior. Admits to feeling alone, "no one believes me, I have no one." States his children are the only reason he has not ended his life, but admits that he has started to make preparations for his , including getting rid of belongings so that dealing with his things is not a burden for his children. He states that he would never commit suicide using a weapon, as he would not want his children to have to "clean up the mess," but often wishes that he would "go to sleep and never wake up. Hospital Course (1) Depression 02/21 -long-standing alcohol abuse, which clouds the picture and precludes diagnosis of major depressive disorder, as he has not had a period of sobriety. He has been treated with several SSRI antidepressants in the past, but has a pattern of nonadherence with treatment, so fluoxetine is a good choice given its long half-life and less risk of missed doses. Will increase to 60mg daily, as has never been on higher doses. -Every 15 minute checks for safety, attend groups and work on coping skills and discharge safety plan. -Encourage family meeting with local supports. -Encourage treatment for his alcoholism, as it will be difficult to address mood symptoms as long as he is drinking. He would benefit from outpatient dual diagnosis treatment, with a substance abuse counselor and psychiatrist. ? [facility]? -Coordinate care with PCP, JCARLOS Ralph who has been prescribing his fluoxetine. 02/22 - Continue fluoxetine 60mg daily - PRN trazodone 50mg tonight if needed for sleep - Pt willing for phone meeting with his son - Continue to explore willingness for ETOH abuse treatment 02/23 -Continue current medications. Meeting scheduled with son. 02/24 -Encourage patient to attend and participate in all groups and unit programming, and work on concrete plans for maintaining sobriety, mood stability , and safety after discharge. Meeting with son tomorrow. (2) Alcohol use disorder, severe, dependence 02/21 - The patient's AUDIT score suggests problematic drinking (Zone III WHO). Brief intervention was offered and accepted Intervention was greater than 5 min in length. Brief interventions include: 1. Assess Readiness to Quit, 2. Advise: Help Patient to Reduce or Abstain from Alcohol, 3. Agree: Set Specific, Feasible Goals, 4. Assist: Anticipate barriers, Problem-Solving Solutions. Social work to 5. Arrange: Referrals to appropriate treatment. Summary of intervention: The patient is in precontemplation stage with regards to transtheoretical model of change. The patient is advised recommendations are for inpatient rehab and abstinence from alcohol, due to the risks of , withdrawal, and organ damage, worsening of depression, suicide, and risk of interactions with prescription medications. The patient is adamantly refusing rehab and AA, so we will explore outpatient treatment options (IOP), and will be provided with recovery materials to continue to education self on how to cope with their condition without drinking. -Continue AWSS with gabapentin taper and lorazepam as needed for withdrawal symptoms. -Patient states he has a full bottle of liquor at home, so would recommend someone be identified to remove it. He is refusing this currently. Suggested that he ask his friend David, whose house he lives in, to remove it, but he remains unwilling. -Had a kamlesh discussion with the patient about the severity of his alcoholism and his resistance to making real changes to his behavior. He admits that he is ambivalent about change, and encouraged him to continue to explore this here. 02/22 - Pt reports interest in alcohol deterrent medication such as naltrexone, as had been offered in the past - Will allow patient to consider further as it had been abruptly mentioned - Discussed ability to discuss with outpatient providers as well, as is non- formulary here and could not be started until discharge 02/23 - Patient agreed to IOP at [facility], appointment 03/01/2018. - Recommend he contact a friend to remove alcohol from the home prior to discharge. 02/24 - Patient continues to refuse inpatient rehab, or to allow anyone to remove the alcohol from his home prior to discharge. He has been referred to [facility] for IOP. - Discussed medication assisted treatments of alcoholism, including disulfiram and naltrexone, both of which are nonformulary. 02/25 - Still not engaging in meaningful steps toward sobriety - Still refusing rehab (3) Cannabis abuse 02/21 -reviewed risks of ongoing substance abuse, including health problems, drug drug interactions, and legal problems, and recommendations for abstinence and substance abuse treatment. Risk Factors Assessment Male: Yes : Yes /single/: Yes Higher / Fall in social status: No Health problems: Yes Mental Health Diagnoses: Yes Substance use disorders: Yes Previous attempt: Yes Family history of suicide: No Previous psychiatric stay: Yes Hopelessness: Yes Smoker: Yes Protective Factors Assessment : No Responsible for young children: No Employed: No Stable relationships: No Good rapport with provider: No (No outpatient providers) Day of Discharge Assessment COURSE OF HOSPITALIZATION: 52-year-old male admitted for voluntary inpatient mental health treatment due to suicidal and homicidal ideation. Pt reported he had been intoxicated and called the police with threats to kill individual, michelle a bank, and ending his life. Police responded to the calls and the patient was brought to the ED with a 302 petition. Once sober, the patient reported feelings of sadness, decreased motivation, hopelessness, and daily SI. Pt was willing for inpatient treatment. His dose of fluoxetine had been increased to 60mg once admitted and he received 50mg of trazodone due to ineffective use of hydroxyzine for insomnia. Pt reports improvement in mood during his stay. Pt is agreeable to follow-up at [facility] for substance abuse disorder as well as ongoing medication management. Pt was agreeable to a phone session with his son and ' basilio' during his stay. Patient has engaged in group and recreational therapies during admission, and has completed a safety plan prior to discharge which was personally reviewed by this provider. DAY OF DISCHARGE ASSESSMENT: Pt's case was reviewed and discussed today during treatment team. Staff report the patient appears ready for discharge, following a decent phone session with his son and aldod yesterday. Pt was able to request that the alcohol be removed from his home prior to discharge. Pt was seen today to assess readiness for discharge. He continues to be unmotivated for change in regard to his substance use, despite being able to verbalize steps necessary for recovery. He remains agreeable to follow-up with [facility]. Pt does report his mood has improved and feels that the increase of fluoxetine will be a beneficial change. Pt reports goals of finding local supports, becoming "gainfully employed", and working on treating his addiction. Pt feels ready for discharge today and remains future oriented during conversation. Based on review of the patient's records and presentation at this encounter, the patient appears appropriate for discharge today. Transition of care record was reviewed with the patient. Pt was encouraged to continue to take medications as prescribed until recommended to stop by another prescriber. The patient presented as alert and cooperative. The patient was casually dressed and groomed. Eye contact was good. No psychomotor restlessness or agitation was noted. Speech was normal in rate, rhythm, and volume. Affect was mood congruent. The patients mood appeared mildly blunted, depressed affect at times, other times able to smile minimally. Thought processes were clear, coherent and goal directed without evidence of loose associations or flight of ideas. Thought content/perception was reality based without delusions. The patient denied suicidal and homicidal ideation. The patient denied hallucinations and did not appear to be responding to internal stimuli. Cognition was grossly intact with orientation to person, place and time. Fund of Knowledge/Intelligence were consistent with level of education. Insight and Judgement were fair. Laboratory Refer to printed laboratory reports Test 02/20/18 08:45 02/20/18 08:54 02/20/18 09:02 02/20/18 18:07 Urine Color YELLOW Urine Appearance CLEAR Urine pH 5.0 Urine Specific [place] 1.020 Urine Protein NEG Urine Glucose (UA) NEG Urine Ketones NEG Urine Occult Blood TRACE Urine Nitrite NEG Urine Bilirubin NEG Urine Urobilinogen NEG Urine Leukocyte Esterase NEG Urine WBC (Auto) 1-5 Urine RBC (Auto) 0-4 Urine Hyaline Casts (Auto) 1-5 Urine Epithelial Cells (Auto) 5-10 Urine Bacteria (Auto) NEG Urine Opiates Screen NEG Urine Methadone, Qualitative NEG Urine Barbiturates NEG Urine Phencyclidine (PCP) Level NEG Ur Amphetamine/Methamphetamine NEG MDMA (Ecstasy) Screen NEG Urine Benzodiazepines Screen NEG Urine Cocaine Metabolite NEG Urine Marijuana (THC) POS Urine Marijuana (THC Carboxy Acid) 29 POC Glucose 113 White Blood Count 6.85 Red Blood Count 4.27 Hemoglobin 14.4 Hematocrit 39.5 Mean Corpuscular Volume 92.5 Mean Corpuscular Hemoglobin 33.7 Mean Corpuscular Hemoglobin Concent 36.5 Platelet Count 226 Mean Platelet Volume 9.4 Neutrophils (%) (Auto) 38.6 Lymphocytes (%) (Auto) 51.8 Monocytes (%) (Auto) 5.8 Eosinophils (%) (Auto) 3.1 Basophils (%) (Auto) 0.4 Neutrophils # (Auto) 2.64 Lymphocytes # (Auto) 3.55 Monocytes # (Auto) 0.40 Eosinophils # (Auto) 0.21 Basophils # (Auto) 0.03 RDW Standard Deviation 46.7 RDW Coefficient of Variation 13.9 Immature Granulocyte % (Auto) 0.3 Immature Granulocyte # (Auto) 0.02 Sodium Level 141 Potassium Level 3.9 Chloride Level 109 Carbon Dioxide Level 24 Anion Gap 8.0 Blood Urea Nitrogen 17 Creatinine 0.99 Est Creatinine Clear Calc Drug Dose 111.9 Estimated GFR () 99.7 Estimated GFR (Non- 86.0 BUN/Creatinine Ratio 17.4 Random Glucose 116 Calcium Level 9.2 Total Bilirubin 0.3 Direct Bilirubin < 0.1 Aspartate Amino Transferase (AST) 32 Alanine Aminotransferase (ALT) 51 Alkaline Phosphatase 79 Total Protein 8.2 Albumin 4.5 Globulin 3.7 Albumin/Globulin Ratio 1.2 Thyroid Stimulating Hormone (TSH) 1.400 Ethyl Alcohol mg/dL 347.0 96.3 Total Time Total Time Spent (min): Greater than 30 minutes Total Time Included: examination of the patient, discharge planning, medication reconciliation, communication with other providers Transition of Care Transition of care record: was reviewed with the patient Tobacco Cessation at Discharge Smoking Status: Light Tobacco Smoker FDA approved Prescription: nicotine replacement product (agreed to prescription for nicotine patches) Problem Qualifiers (1) Depression: Depression Type: unspecified Qualified Codes: F32.9 - Major depressive disorder, single episode, unspecified
[2018-02-26] MEDS ORDERED: NICO7DIS7 TD (09:56)
[2018-02-26] MEDS ORDERED: DSY50 PO (09:56)
[2018-02-26] MEDS ORDERED: FLUO60TA4 PO (09:56)
[2018-02-26 12:12] VITALS: BP 121/83; PULSE 88; TEMP 36.7
== END 2018-02-26 13:30 | disposition home or self-care (01) | DRG 881 ==
LOC: C.EDB 08:25 → C.MHU 19:47 → ENRESERV 19:54
PROVIDERS: ADMIT Psychiatry & Neurology Psychiatry; ATTEND Psychiatry & Neurology Psychiatry
DX: F32.9 Major depressive disorder, single episode, unspecified (principal); F10.229 Alcohol dependence with intoxication, unspecified; F12.10 Cannabis abuse, uncomplicated; R45.851 Suicidal ideations; I10 Essential (primary) hypertension; E78.5 Hyperlipidemia, unspecified; Z82.49 Family history of ischemic heart disease and other diseases of the circulatory system; Z83.3 Family history of diabetes mellitus; Z81.1 Family history of alcohol abuse and dependence; F17.200 Nicotine dependence, unspecified, uncomplicated

== ENCOUNTER 2019-06-25 17:52 | Inpatient (IN) ==
[2019-06-25 18:57] LABS: Basophils # (auto) 0.03 K/uL (0-0.2); Basophils % (auto) 0.5 %; Eosinophils % (auto) 4.8 %; Hematocrit (blood only) 39.1 % (42-52); Hemoglobin 13.5 g/dL (14.0-18.0); Immature Granulocytes # (auto) 0.02 K/uL (0.00-0.02); Immature Granulocytes % (auto) 0.3 %; Lymphocytes # (auto) 2.78 K/uL (1.2-3.4); Lymphocytes % (auto) 44.3 %; Mean Corpuscular Hemoglobin 32.1 pg (25-34); Mean Corpuscular Hgb Conc 34.5 g/dL (32-36); Mean Corpuscular Volume 92.9 fL (80-100); Mean Platelet Volume 9.4 fL (7.4-10.4); Monocytes # (auto) 0.41 K/uL (0.11-0.59); Monocytes % (auto) 6.5 %; Neutrophils # (auto) 2.73 K/uL (1.4-6.5); Neutrophils % (auto) 43.6 %; Platelet Count 229 K/uL (130-400); RDW Coefficient of Variation 13.4 % (11.5-14.5); RDW Standard Deviation 45.3 fL (36.4-46.3); Red Blood Count 4.21 M/uL (4.7-6.1); White Blood Count 6.27 K/uL (4.8-10.8)
[2019-06-25 19:10] LABS: Appearance Urine Clear (Clear); Bilirubin Urine Negative (Negative); Blood Urine Trace (Negative); Color Urine Yellow; Glucose Urine UA Negative (Negative); Ketones Urine Negative (Negative); Leukocyte Esterase Urine Negative (Negative); Nitrite Urine Negative (Negative); Protein Urine Negative (Negative); Specific Gravity Urine 1.011 (1.000-1.030); Urobilinogen Urine Negative (Negative)
[2019-06-25 19:16] LABS: Albumin Level 4.3 gm/dl (3.4-5.0); Calcium 9.2 mg/dl (8.5-10.1); Creatinine Clr Calc Pharmacy 118.9 ml/min; Est GFR (African American) 105.4; Est GFR (Non-African American) 90.9; Potassium 3.7 mmol/L (3.5-5.1)
[2019-06-25 19:19] LABS: Albumin Globulin Ratio 1.1 (0.9-2); Bilirubin,Total 0.3 mg/dl (0.2-1); Globulin 3.8 gm/dl (2.5-4.0); Total Protein 8.1 gm/dl (6.4-8.2)
[2019-06-25 19:20] LABS: Acetaminophen < 2 ug/ml (10-30); Salicylate 2.5 mg/dl (2.8-20)
[2019-06-25 19:28] LABS: Bacteria Urine Negative (Negative); Epithelial Cell Urine 0-5 /lpf (0-5); Hyaline Casts Urine 0-5 /lpf (0-5); RBC Urine 0-4 /hpf (0-4); WBC Urine 0-5 /hpf (0-5)
[2019-06-25 19:30] LABS: Amphetamines+Metham, Urine Neg (Neg); Barbiturates, Urine Neg (Neg); Benzodiazepine, Urine Neg (Neg); Cocaine, Urine Neg (Neg); MDMA (Ecstacy), Urine Neg (Neg); Methadone, Urine Neg (Neg); Opiate, Urine Neg (Neg); Phencyclidine, Urine Neg (Neg)
[2019-06-25] MEDS ORDERED: MULTI-VITAMIN INFUSION 10 ML, THIAMINE HCL 100 MG, FOLIC ACID 1 MG in SODIUM CHLORIDE 0... IV ONE (20:30)
--- NOTE | 2019-06-25 20:45 | History & Physical Report ---
Date of Service June 25, 2019 Assessment & Plan (1) Intentional drug overdose: 53-year-old male with history of alcohol use disorder, depression with history of suicidal and homicidal ideations, hypertension, hyperlipidemia, history of gastric ulcer and kidney stones presents status post drinking 1 handle of vodka today and taking 5 lisinoprils and 4-5 trazodones to go to sleep about 5 hours ago. Intentional overdose Patient took about 5 lisinoprils and 5 trazodones about 5 hours ago Reports just wanted to end the day and did not think it was going to kill him however he has history of depression with suicidal and homicidal ideation U tox negative, EtOH 327, Tylenol level less than 2 and salicylate level less than 2.5 Electrolytes within normal limits Trazodone overdose No QT changes or seizures at this time EK normal sinus rhythm QTc 469 RBBB Hold home trazodone Monitor on telemetry Lisinopril overdose Pressure on presentation was 157/116 however now 122/74 Hold home lisinopril Monitor vitals closely Alcohol intoxication Drinks a handle of vodka about once a week and had one today as well No previous history of seizures or delirium tremens EtOH level 327 Given banana bag Started on alcohol withdrawal protocol with Ativan as needed Started on folic acid and thiamine daily Patient not interested in quitting at this time Depression with history of suicidal and homicidal ideation No suicidal or homicidal ideation at this time Continue home fluoxetine Hypertension Hold home lisinopril in the setting of overdose -resume once blood pressure stabilizes/hypertensive again Hyperlipidemia Continue home atorvastatin Hip pain status post bilateral hip replacements Continue home, [place] and meloxicam History of gastric ulcer in 2017 Not on PPI at this time History of kidney stones FEN/GI: LR at 125 cc/h, heart healthy diet DVT prophylaxis: Low risk, SCDs, encourage ambulation Code: Full Disposition: MedSurg with telemetry; consult case management to help obtain insurance (2) Alcohol intoxication: (3) Alcohol dependence: (4) Depression with anxiety: History of Present Illness Chief Complaint: Overdose and alcohol intoxication Primary Care Provider: Carlos Nuñez III, LEAD [employer]IVER 53-year-old male with history of alcohol use disorder, depression with history of suicidal and homicidal ideations, hypertension, hyperlipidemia, history of gastric ulcer and kidney stones presents status post drinking 1 handle of vodka today and taking 5 lisinoprils and 4-5 trazodones to go to sleep about 5 hours ago. He reports drinking and being depressed. His drinking causes his blood pressure to increase which is why he took multiple lisinopril to help control it. He also took multiple trazodone's to go to sleep" end the day ". He reports binge drinking about 2 days a week usually on the weekends when he does not have to work. When he drinks he says stupid things that he does not necessa rily mean and sounds suicidal and homicidal. He says things like "I want to kill those drug dealers in [facility] who have made my daughter a heroine addict and manic and won't let her go. She just had a baby and I can't see her". He reports does not have any artillery and does not mean anything he says. He called his engraver copperplate friends after drinking a lot today. He reports he reaches out to them and they give him a ride to the hospital otherwise he can pass off 1 to 2 days. He works at [email or web address] and does not have insurance as he is not full-time which contributes to his depression as well. He also reports orthopnea and nocturnal dyspnea. He uses 2 pillows at night to sleep. He says he has sleep apnea but does not use CPAP. Denies any fever, chills, headache, lightheadedness, vision changes, auditory or visual hallucinations, pain, palpitations, shortness of breath, abdominal pain, nausea, vomiting, diarrhea, constipation, hematuria, dysuria. Social history: Lives alone, smokes 3 cigarettes a day, drinks a handle of vodka about once a week, has occasional marijuana Allergies Allergy/AdvReac Type Severity Reaction Status Date / Time No Known Allergies Allergy Verified 06/25/19 18:18 Home Medications Home Medications Medication Instructions Recorded Confirmed Type atorvastatin 10 mg tablet 10 mg PO DAILY #90 tab 05/13/19 06/25/19 Rx fluoxetine 40 mg capsule 40 mg PO DAILY #90 cap 05/13/19 06/25/19 Rx gabapentin 300 mg capsule 300 mg PO BID PRN #180 cap 05/13/19 06/25/19 Rx lisinopril 20 mg tablet 20 mg PO DAILY #90 tab 05/13/19 06/25/19 Rx meloxicam 15 mg tablet 7.5 mg PO BID #90 tab 05/13/19 06/25/19 Rx trazodone 50 mg PO HS PRN 06/18/19 06/25/19 History Past Med/Surg History Medical History Alcohol use disorder, severe, dependence (Chronic) Bilateral hip pain Cannabis abuse (Chronic) Depression (Resolved) Gastric ulcer (Resolved) Hypertension (Resolved) Kidney stones Surgical History History of colonoscopy History of left hip replacement partial 2011 Dr. Houston History of open reduction and internal fixation (ORIF) procedure left arm--hardware removed History of total replacement of right hip 2006 Dr. [place] History of wisdom tooth extraction Family History Mother Family history of diabetes mellitus Depression Father Alcohol abuse Cardiac disorder Hypertension Myocardial infarction Brother Alcohol abuse Seizure Other No family history of adverse response to anesthesia Social History Preferred Language: Sami Communication Ability: Effective Visual Impairment: No Limitations Hearing Ability: Normal Customer Support Agent Required: No Beliefs That Will Affect Care: None marital status: Current Living Situation: Alone current occupational status: employed current occupation: [email or web address] Feels Safe at Home: Yes Safety Concerns: Feels Safe At This Time Smoking Status: Current every day smoker Tobacco Type: cigarettes ; Age Started Using Tobacco: 18 ; Cigarettes Per Day: 10 ; Second Hand Exposure: Yes (father smoked) ; Hx Alcohol Use: Yes Alcohol type: beer and hard liquor Alcohol Intake Frequency Comment: patient states he has been sober for three months Hx Substance Use: No Childhood Exposure to Second-Hand Smoke: Yes Dental Care, Regularly: Yes Physical Activity Frequency: Does not Exercise Seatbelt Use: sometimes Sunscreen Use: No Review of Systems Review of Systems: As per HPI Physical Exam Physical Exam: General: In NAD, cooperative and pleasant HEENT: conjunctival injection, dry oral mucosa Neuro: A&O x 4 Pulm: CTAB equal breath sounds bilaterally CV: RRR, no m/r/g, cap refill 3 secs Abdomen:+BS, no TTP in all quadrants, non-distended, R inguinal hernia LE: no LE edema, no calf TTP Results & Data Vital Signs (Past 12 Hours) Vital Signs Temp Pulse Resp BP Pulse Ox 06/25/19 19:31 94 06/25/19 19:30 116/72 94 06/25/19 19:12 91 06/25/19 19:09 75 21 95 06/25/19 19:02 73 20 122/74 92 06/25/19 18:15 36.9 C 82 24 157/116 H 93 Laboratory Results Abnormal lab results 06/25/19 06/25/19 06/25/19 Range/Units 18:39 18:39 18:39 RBC 4.21 L (4.7-6.1) M/uL Hgb 13.5 L (14.0-18.0) g/dL Hct 39.1 L (42-52) % Chloride 111 H (98-107) mmol/L Glucose 114 H (70-99) mg/dl Urine Blood (Negative) Salicylates 2.5 L (2.8-20) mg/dl Acetaminophen < 2 L (10-30) ug/ml Ethyl Alcohol mg/dL (0-3) mg/dl 06/25/19 06/25/19 Range/Units 18:39 18:52 RBC (4.7-6.1) M/uL Hgb (14.0-18.0) g/dL Hct (42-52) % Chloride (98-107) mmol/L Glucose (70-99) mg/dl Urine Blood Trace H (Negative) Salicylates (2.8-20) mg/dl Acetaminophen (10-30) ug/ml Ethyl Alcohol mg/dL 327.0 H (0-3) mg/dl Medications Administered Current Inpatient Medications Multivitamins 10 ml/ Thiamine HCl 100 mg/ Folic Acid 1 mg/Sodium Chloride 1,011.2 mls @ 1,011.2 mls/hr IV .Q1H ONE Stop: 06/25/19 21:29 Code Status & VTE Plan Code Status Full Code VTE Prophylaxis Plan VTE Prophylaxis will be ordered: Yes Supervising Physician Co-Signing Physician Notes Patient seen and examined, chart reviewed, case discussed with Dr. Arias and I agree with her assessment and plan as documented above. Briefly, patient is a 53-year-old male with history of alcohol abuse, mood disorder presenting after intentional overdose. Reports taking lisinopril and trazodone x5 pills each. He did not think it was going to end and his life. Patient also with history of alcohol abuse. Patient with considerable stress at home. He has a daughter who lives in the [place] area seems to be addicted to heroin and currently in a bad relationship. Patient states that he has a lot of depression and anxiety when he thinks about his daughter. He has tried alcohol rehab in the past x2, unsuccessfully. He has no interest in attending AA meetings. Did express some interest in outpatient rehab. On physical exam he is afebrile, hemodynamically stable, nontoxic in appearance Generalintoxicated Skinwarm, dry, intact. No rashes or lesions HEENTnormocephalic atraumatic, pupils equal and reactive to light, moist mucous membranes, neck supple HeartS1-S2 present, regular, no murmurs rubs or gallops Lungsequal air entry bilaterally, no rales/rhonchi/wheezes Abdomenobese, bowel sounds present, soft/nontender/nondistended Extremitieswarm, 2+ pulses Labs and images reviewed Assessment/plan: 53-year-old male presenting with intentional overdose of lisinopril and trazodone as well as excessive alcohol use, 1 handle of vodka today. Patient appears to be very impulsive. Verbally contracts for safety while in the hospital Monitor blood pressure, provide supportive care as needed Monitor renal function and electrolytes Telemetry monitoring to assess for conduction abnormalities Alcohol withdrawal protocol Consider psychiatry referral outpatient for alcohol abstinence Remainder of plan as above Resident Activity Tracking Resident Involvement: Resident Care Provided Care Provided: Adult Hospital Medicine (1) Alcohol dependence Substance use status: unspecified alcohol-induced disorder Qualified Code(s): F10.29 - Alcohol dependence with unspecified alcohol-induced disorder (2) Intentional drug overdose Encounter type: initial encounter Qualified Code(s): T50.902A - Poisoning by unspecified drugs, medicaments and biological substances, intentional self-harm, initial encounter (3) Alcohol intoxication Complication of substance-induced condition: uncomplicated Qualified Code(s): F10.920 - Alcohol use, unspecified with intoxication, uncomplicated
[2019-06-25] MEDS ORDERED: GABAPENTIN 300 MG CAP PO PRN (23:12)
[2019-06-25] MEDS ORDERED: ONDANSETRON INJ 2 MG/ML 2 ML VIAL IV PRN (23:12)
[2019-06-25] MEDS ORDERED: ACETAMINOPHEN 325 MG TAB PO PRN (23:12)
[2019-06-25] MEDS ORDERED: LORazepam 1 MG TAB PO PRN (23:12)
--- NOTE | 2019-06-25 23:18 | Emergency Department Note ---
Entered by Miguel Angel Nash acting as a scribe for History of Present Illness General Chief complaint: Mental Health Evaluation Stated complaint: ETOH Time Seen by Provider: 06/25/19 17:57 Source: patient and other (Nursing) Limitations: intoxication History of Present Illness Onset (ago): hour(s) (MANUFACTURING SUPPORT ENGINEER) Location: head Quality: + constant Exacerbated By: + other (drinking) Associated symptoms: + denies other symptoms (illnesses, suicidal ideations); no fever/chills The patient is a 53 year old male who presents to the Emergency Room with complaints of alcohol intoxication. The patient states he usually calls the police after drinking. He states he thinks he called the police tonight. The patient states in the past he has told the police that he wants to hurt himself but states he did not tell the police he wanted to hurt himself tonight. The patient states he has recently been depressed and has been drinking frequently. He states he drank a bottle of hard liquor today. The patient states he takes medications for his depression as prescribed. He notes he does not see a counselor or psychiatrist. He states he has been hospitalized for depression before. The patient denies having any intention of hurting himself. He denies falling, recent fever, and recent illness. Nursing reports the patient is a chronic alcoholic and frequently has interactions with the police. Nursing states police notes the patient was going to go to his neighbors house, who is his ex-, and threatened to break all the cameras and vandalize the house. Nursing states the police reported the patient was making suicidal statements tonight but a 302 was not filled out by the police. HPI is limited secondary to alcohol intoxication. Home Medications Home Medications Medication Instructions Recorded Confirmed Type atorvastatin 10 mg tablet 10 mg PO DAILY #90 tab 05/13/19 06/25/19 Rx fluoxetine 40 mg capsule 40 mg PO DAILY #90 cap 05/13/19 06/25/19 Rx gabapentin 300 mg capsule 300 mg PO BID PRN #180 cap 05/13/19 06/25/19 Rx lisinopril 20 mg tablet 20 mg PO DAILY #90 tab 05/13/19 06/25/19 Rx meloxicam 15 mg tablet 7.5 mg PO BID #90 tab 05/13/19 06/25/19 Rx trazodone 50 mg PO HS PRN 06/18/19 06/25/19 History Allergies Allergy/AdvReac Type Severity Reaction Status Date / Time No Known Allergies Allergy Verified 06/25/19 18:18 Past Med/Surg History Medical History Alcohol use disorder, severe, dependence (Chronic) Bilateral hip pain Cannabis abuse (Chronic) Depression (Resolved) Gastric ulcer (Resolved) Hypertension (Resolved) Kidney stones Surgical History History of colonoscopy History of left hip replacement partial 2011 Dr. [place] History of open reduction and internal fixation (ORIF) procedure left arm--hardware removed History of total replacement of right hip 2006 Dr. [place] History of wisdom tooth extraction Family History Mother Family history of diabetes mellitus Depression Father Alcohol abuse Cardiac disorder Hypertension Myocardial infarction Brother Alcohol abuse Seizure Other No family history of adverse response to anesthesia Social History Preferred Language: Citizen Of The [place] Communication Ability: Effective Visual Impairment: No Limitations Hearing Ability: Normal Environmental Services Tech Required: No Beliefs That Will Affect Care: None marital status: Current Living Situation: Alone current occupational status: employed current occupation: [employer] Feels Safe at Home: Yes Safety Concerns: Feels Safe At This Time Smoking Status: Current every day smoker Tobacco Type: cigarettes ; Age Started Using Tobacco: 18 ; Cigarettes Per Day: 10 ; Second Hand Exposure: Yes (father smoked) ; Hx Alcohol Use: Yes Alcohol type: beer and hard liquor Alcohol Intake Frequency Comment: patient states he has been sober for three months Hx Substance Use: No Childhood Exposure to Second-Hand Smoke: Yes Dental Care, Regularly: Yes Physical Activity Frequency: Does not Exercise Seatbelt Use: sometimes Sunscreen Use: No Review of Systems Other (Unobtainable due to alcohol intoxication) Physical Exam Vital Signs Vital Signs - 24 hr 06/25/19 18:15 06/25/19 19:02 06/25/19 19:09 Temperature 36.9 C Temperature Source Oral Pulse Rate 82 73 75 Pulse Rate from SpO2 Sensor 73 75 Respiratory Rate 24 20 21 Respiratory Effort / Characteristics Non-Labored Respiratory Depth Normal Blood Pressure 157/116 H 122/74 Blood Pressure Mean 129 81 Blood Pressure Position Sitting Pulse Oximetry 93 92 95 Oxygen Delivery Method Room Air 06/25/19 19:12 06/25/19 19:30 06/25/19 19:31 Temperature Temperature Source Pulse Rate Pulse Rate from SpO2 Sensor 84 82 Respiratory Rate Respiratory Effort / Characteristics Respiratory Depth Blood Pressure 116/72 Blood Pressure Mean 78 Blood Pressure Position Pulse Oximetry 91 94 94 Oxygen Delivery Method Room Air 06/25/19 20:00 06/25/19 20:01 Temperature Temperature Source Pulse Rate Pulse Rate from SpO2 Sensor 86 86 Respiratory Rate Respiratory Effort / Characteristics Respiratory Depth Blood Pressure 115/76 Blood Pressure Mean 95 Blood Pressure Position Pulse Oximetry 94 95 Oxygen Delivery Method Constitutional: Vital signs reviewed. Eyes: Pupils are equal round reactive to light. Conjunctiva are noninjected. ENT: Pharynx is clear without erythema or exudate. Mucous membranes are moist. Neck supple without meningeal signs. Respiratory: Clear to auscultation bilaterally. Breath sounds are equal bilaterally. Cardiovascular: Regular rate and rhythm. No rubs or gallops. GI: Soft, nondistended and nontender. Bowel sounds are present. Musculoskeletal: No peripheral edema. No lower extremity tenderness. Integumentary: No cyanosis. Neurological: The patient is awake and alert. No focal deficits. Slurred speech. Psychiatric: Appears intoxicated. Course Course 1801: The patient was evaluated in room B4B, and a complete history and physical examination were performed. 1814: Nursing called and stated the patient now says he took "a lot" of Trazodone and Lisinopril about an hour ago. 1822: I spoke with the patient. The patient stated that he took an unknown amount of pills including Trazodone and Lisinopril about an hour MANUFACTURING SUPPORT ENGINEER. He states he took those medications to sleep. I told him that people do not take blood pressure medications to sleep and asked the patient if he wanted to sleep and not wake up. He then started talking about all his problems in his life. He then states he has taken more pills in the past and then quickly stated he should not have said that. Nurse will fill out a 302 petition. I spoke with the psychiatric rn field case manager. I spoke to officer Howard Smith of [facility]. The policeman states that the patient has been calling the police for years after drinking. The officer states the patient made statements suggesting that he would be better off if he was not alive but did not make any suicidal statements, so the officer did not feel a 302 warrant was indicated based off those statements. 183: I spoke with [facility]. They state the Lisinopril peaks in 8 hours so the patient has to be watched for at least 8 hours and the duration is 20 hours. 1846: I reevaluated the patient. His BP is still elevated and an EKG is being performed. 1902: I reevaluated the patient. He said he would be cooperative about staying i n the hospital. BP is now 122/74. 1924: I discussed the patient's case with Dr. Torres - Irineo Perea Hospitalist. She will evaluate the patient for further management. 1957: Jessie's BP is 116/72 and HR is 75 BPM. Irineo Perea is evaluating the patient. Administered Medications Discontinued Medications Multivitamins 10 ml/ Thiamine HCl 100 mg/ Folic Acid 1 mg/Sodium Chloride 1,011.2 mls @ 1,011.2 mls/hr IV .Q1H ONE Stop: 06/25/19 21:29 Last Infusion: 06/25/19 22:44 Dose: 0 mls/hr Documented by: [id number] Admin: 06/25/19 20:59 Dose: 1,011.2 mls/hr Documented by: [id number] Critical Care Time Critical Care Time: Yes Total Critical Care Time: 40 I have personally spent approximately 40 minutes of critical care time in the direct management of this patient. This includes bedside care, interpretation of diagnostic studies, and testing, discussion with consultants, patient, and [facility], and other required patient management activities. This 40 minutes is in excess of all separately billable procedures. Medical Decision Making Differential Diagnosis Differential Diagnosis includes but is not limited to mood disorder, overdose, suicide attempt, alcohol intoxication, and alcohol dependence. Medical Records Attestation: I reviewed the patient's medical records. The patient was seen in the ED on June 18 for alcohol intoxication. He was evaluated in the hospital and then discharged home. Home Medications Current Medication List: was personally reviewed by me Laboratory Data Attestation: I reviewed the patient's lab results. Result diagrams: 06/25/19 18:39 06/25/19 18:39 Lab Results 11/06/25/19 06/25/19 Range/Units 18:39 18:39 18:39 WBC 6.27 (4.8-10.8) K/uL RBC 4.21 L (4.7-6.1) M/uL Hgb 13.5 L (14.0-18.0) g/dL Hct 39.1 L (42-52) % MCV 92.9 (80-100) fL MCH 32.1 (25-34) pg MCHC 34.5 (32-36) g/dL RDW Std Deviation 45.3 (36.4-46.3) fL RDW Coeff of Quang 13.4 (11.5-14.5) % Plt Count 229 (130-400) K/uL MPV 9.4 (7.4-10.4) fL Immature Gran % (Auto) 0.3 % Neut % (Auto) 43.6 % Lymph % (Auto) 44.3 % [place] % (Auto) 6.5 % Eos % (Auto) 4.8 % Baso % (Auto) 0.5 % Immature Gran # (Auto) 0.02 (0.00-0.02) K/uL Neut # (Auto) 2.73 (1.4-6.5) K/uL Lymph # (Auto) 2.78 (1.2-3.4) K/uL [place] # (Auto) 0.41 (0.11-0.59) K/uL Eos # (Auto) 0.30 (0-0.5) K/uL Baso # (Auto) 0.03 (0-0.2) K/uL Sodium 144 (136-145) mmol/L Potassium 3.7 (3.5-5.1) mmol/L Chloride 111 H (98-107) mmol/L Carbon Dioxide 26 (21-32) mmol/L Anion Gap 7.0 (3-11) BUN 14 (7-18) mg/dl Creatinine 0.94 (0.6-1.4) mg/dl Est Cr Clr Drug Dosing 118.9 ml/min Est GFR ( Amer) 105.4 Est GFR (Non-Af Amer) 90.9 BUN/Creatinine Ratio 15.0 (10-20) Glucose 114 H (70-99) mg/dl Calcium 9.2 (8.5-10.1) mg/dl Total Bilirubin 0.3 (0.2-1) mg/dl AST 29 (15-37) U/L ALT 37 (12-78) U/L Alkaline Phosphatase 86 (45-117) U/L Total Protein 8.1 (6.4-8.2) gm/dl Albumin 4.3 (3.4-5.0) gm/dl Globulin 3.8 (2.5-4.0) gm/dl Albumin/Globulin Ratio 1.1 (0.9-2) Urine Color Urine Appearance (Clear) Urine pH (4.5-7.5) Ur Specific [place] (1.000-1.030) Urine Protein (Negative) Urine Glucose (UA) (Negative) Urine Ketones (Negative) Urine Blood (Negative) Urine Nitrite (Negative) Urine Bilirubin (Negative) Urine Urobilinogen (Negative) Ur Leukocyte Esterase (Negative) Urine RBC (0-4) /hpf Urine WBC (0-5) /hpf Ur Epithelial Cells (0-5) /lpf Urine Bacteria (Negative) Hyaline Casts (0-5) /lpf Salicylates 2.5 L (2.8-20) mg/dl Urine Opiates Screen (Neg) Ur Methadone, Qual (Neg) Acetaminophen < 2 L (10-30) ug/ml Urine Barbiturates (Neg) Ur Phencyclidine (PCP) (Neg) U Amphetamin/Meth Scrn (Neg) MDMA (Ecstasy) Screen (Neg) U Benzodiazepines Scrn (Neg) Ur Cocaine Metabolite (Neg) U Marijuana (THC) Screen (Neg) Ethyl Alcohol mg/dL (0-3) mg/dl 06/25/19 06/25/19 06/25/19 Range/Units 18:39 18:52 18:52 WBC (4.8-10.8) K/uL RBC (4.7-6.1) M/uL Hgb (14.0-18.0) g/dL Hct (42-52) % MCV (80-100) fL MCH (25-34) pg MCHC (32-36) g/dL RDW Std Deviation (36.4-46.3) fL RDW Coeff of Quang (11.5-14.5) % Plt Count (130-400) K/uL MPV (7.4-10.4) fL Immature Gran % (Auto) % Neut % (Auto) % Lymph % (Auto) % [place] % (Auto) % Eos % (Auto) % Baso % (Auto) % Immature Gran # (Auto) (0.00-0.02) K/uL Neut # (Auto) (1.4-6.5) K/uL Lymph # (Auto) (1.2-3.4) K/uL [place] # (Auto) (0.11-0.59) K/uL Eos # (Auto) (0-0.5) K/uL Baso # (Auto) (0-0.2) K/uL Sodium (136-145) mmol/L Potassium (3.5-5.1) mmol/L Chloride (98-107) mmol/L Carbon Dioxide (21-32) mmol/L Anion Gap (3-11) BUN (7-18) mg/dl Creatinine (0.6-1.4) mg/dl Est Cr Clr Drug Dosing ml/min Est GFR ( Amer) Est GFR (Non-Af Amer) BUN/Creatinine Ratio (10-20) Glucose (70-99) mg/dl Calcium (8.5-10.1) mg/dl Total Bilirubin (0.2-1) mg/dl AST (15-37) U/L ALT (12-78) U/L Alkaline Phosphatase (45-117) U/L Total Protein (6.4-8.2) gm/dl Albumin (3.4-5.0) gm/dl Globulin (2.5-4.0) gm/dl Albumin/Globulin Ratio (0.9-2) Urine Color Yellow Urine Appearance Clear (Clear) Urine pH 5.0 (4.5-7.5) Ur Specific [place] 1.011 (1.000-1.030) Urine Protein Negative (Negative) Urine Glucose (UA) Negative (Negative) Urine Ketones Negative (Negative) Urine Blood Trace H (Negative) Urine Nitrite Negative (Negative) Urine Bilirubin Negative (Negative) Urine Urobilinogen Negative (Negative) Ur Leukocyte Esterase Negative (Negative) Urine RBC 0-4 (0-4) /hpf Urine WBC 0-5 (0-5) /hpf Ur Epithelial Cells 0-5 (0-5) /lpf Urine Bacteria Negative (Negative) Hyaline Casts 0-5 (0-5) /lpf Salicylates (2.8-20) mg/dl Urine Opiates Screen Neg (Neg) Ur Methadone, Qual Neg (Neg) Acetaminophen (10-30) ug/ml Urine Barbiturates Neg (Neg) Ur Phencyclidine (PCP) Neg (Neg) U Amphetamin/Meth Scrn Neg (Neg) MDMA (Ecstasy) Screen Neg (Neg) U Benzodiazepines Scrn Neg (Neg) Ur Cocaine Metabolite Neg (Neg) U Marijuana (THC) Screen Neg (Neg) Ethyl Alcohol mg/dL 327.0 H (0-3) mg/dl ECG Data Attestation: I personally reviewed and interpreted this ECG as follows: Indication: + altered mental status Rate (beats per minute): 78 Rhythm: + normal sinus ECG Intervals/blocks: + Right Bundle branch block and + Normal QRS (QRS is 124 ms); no Prolonged QT Comparison ECG Date: from (05/29/19) Change: no significant change (QRS was 138 ms) Blood Pressure Blood Pressure Findings: Elevated blood pressure Blood Pressure Disposition: further management by hospitalist CARLOS Narrative I did evaluate the patient as noted above. The patient is presenting with what appears to be alcohol intoxication with suicidal ideation. He states to me that he is not suicidal but he may have made suicidal statements to the police per the nurse. I did speak to Officer Sandor over the telephone. He states that the patient frequently calls the police when he gets intoxicated. Tonight he made passive suicidal statements but stated that he did not want to kill himself. The patient was agreeable to come to the hospital for evaluation. After my initial evaluation the nurse later told me that the patient told her in the [facility] that he took an unknown quantity of trazodone and lisinopril an hour prior to arrival. I questioned the patient further about this. He then stated that he took approximately 6 to 7 tablets of lisinopril and trazodone each. He stated that he wanted to sleep. When I explained that people do not take blood pressure medications to sleep and asked him if he wanted to sleep and not wake up he avoided the question and started talking about the reasons why he was depressed. IV access was established. The patient was placed on a con tinuous school lunch monitor. Cardiac monitoring: Indication: Drug overdose with antihypertensives Rate and rhythm: Sinus rhythm. Rate 75. No ectopy. No episodes of bradycardia. I did order and personally review the patient's 12-lead EKG as described above. There is no evidence of bradycardia, acute ischemia or QT prolongation or QRS widening. I did order a urine analysis. I did order and review the patient's blood work as noted in the electronic medical record. He is slightly anemic otherwise his CBC is unremarkable. Electrolytes show chloride of 111. Serum alcohol level is 327. I did reassess the patient multiple times. He remained in sinus rhythm. His blood pressure slowly started to go down. I did speak to poison control and they stated that the lisinopril would peak in 8 hours. They recommended symptomatic care as needed. Given his history of overdose and continued decrease in his blood pressure I did recommend hospitalization. He was agreeable. The nurse did fill out a 302 petition. He will need to be evaluated by psychiatry once he is medically cleared. I did discuss case with the hospitalist and rn field case manager. Impression & Plan Intentional drug overdose, Alcohol intoxication, Mood disorder, Alcohol dependence Discharge Plan Visit Data *Final* Discharge Date/Time: 06/25/19 22:42 Chief Complaint: Mental Health Evaluation Stated Complaint: ETOH Other Complaint: Alcohol Intoxication ED Provider: Christiano Barr Discharge Problem: Intentional drug overdose, Alcohol intoxication, Mood disorder, Alcohol d ependence Patient Disposition: Admitted As Inpatient Discharge Instructions Interventions: ED Discharge Assessment Last Done: 06/25/19 22:42 Discharge Problem: Intentional drug overdose Qualifiers: Encounter type: initial encounter Qualified Code(s): T50.902A - Poisoning by unspecified drugs, medicaments and biological substances, intentional self-harm, initial encounter Alcohol intoxication Qualifiers: Complication of substance-induced condition: uncomplicated Qualified Code(s): F10.920 - Alcohol use, unspecified with intoxication, uncomplicated Alcohol dependence Qualifiers: Substance use status: unspecified alcohol-induced disorder Qualified Code(s): F10.29 - Alcohol dependence with unspecified alcohol-induced disorder The glendaibe's documentation has been prepared under my direction and personally reviewed by me in its entirety. I confirm that the note above accurately reflects all work, treatment, procedures, and medical decision making performed by me.
[2019-06-25] MEDS: LACTATED RINGER'S 1,000 ML IV SCH (23:42)
[2019-06-25] MEDS ORDERED: THIAMINE HCL 100 MG TAB PO ONE (23:45)
[2019-06-25] MEDS: MELOXICAM 7.5 MG TAB PO SCH (23:52)
--- NOTE | 2019-06-26 03:45 | Billing Data ---
Coding Level of Care Code 16351 Initial Inpt Care Lvl 3
[2019-06-26 07:25] LABS: Basophils # (auto) 0.02 K/uL (0-0.2); Basophils % (auto) 0.5 %; Eosinophils # (auto) 0.21 K/uL (0-0.5); Hematocrit (blood only) 36.1 % (42-52); Hemoglobin 12.4 g/dL (14.0-18.0); Immature Granulocytes # (auto) 0.01 K/uL (0.00-0.02); Immature Granulocytes % (auto) 0.2 %; Lymphocytes # (auto) 1.59 K/uL (1.2-3.4); Lymphocytes % (auto) 38.2 %; Mean Corpuscular Hgb Conc 34.3 g/dL (32-36); Mean Platelet Volume 9.3 fL (7.4-10.4); Monocytes # (auto) 0.28 K/uL (0.11-0.59); Monocytes % (auto) 6.7 %; Neutrophils # (auto) 2.05 K/uL (1.4-6.5); Neutrophils % (auto) 49.4 %; Platelet Count 181 K/uL (130-400); RDW Coefficient of Variation 13.4 % (11.5-14.5); RDW Standard Deviation 45.3 fL (36.4-46.3); Red Blood Count 3.88 M/uL (4.7-6.1); White Blood Count 4.16 K/uL (4.8-10.8)
[2019-06-26 07:49] LABS: Albumin Level 3.6 gm/dl (3.4-5.0); BUN Creatinine Ratio 18.9 (10-20); Calcium 8.3 mg/dl (8.5-10.1); Creatinine Clr Calc Pharmacy 136.2 ml/min; Est GFR (African American) 117.2; Est GFR (Non-African American) 101.1; Potassium 3.9 mmol/L (3.5-5.1)
[2019-06-26 07:53] LABS: Albumin Globulin Ratio 1.2 (0.9-2); Bilirubin,Total 0.5 mg/dl (0.2-1); Total Protein 6.6 gm/dl (6.4-8.2)
[2019-06-26] MEDS: LACTATED RINGER'S 1,000 ML IV SCH ×2 (08:01→14:11)
[2019-06-26] MEDS: THIAMINE HCL 100 MG TAB PO SCH (08:02)
[2019-06-26] MEDS: FOLIC ACID 1 MG TAB PO SCH (08:02)
[2019-06-26] MEDS: MELOXICAM 7.5 MG TAB PO SCH ×2 (08:02→20:42)
[2019-06-26] MEDS: FLUOXETINE HCL 20 MG CAP PO SCH (08:02)
[2019-06-26] MEDS: ATORVASTATIN 10 MG TAB PO SCH (08:02)
--- NOTE | 2019-06-26 11:56 | Psychiatric Consultation ---
Date of Consultation June 26, 2019 Impression / Recommendations Impression 53-year-old male with a history of depression and alcohol dependence who presents with intoxication after calling the police, which is his typical pattern. In the ER, he reported taking 5-6 tablets of lisinopril and trazodone in order to fall asleep. He has consistently denied suicidality or intent to harm himself with the overdose, and it is questionable whether or not he took the pills, as he now does not recall what he said or did prior to admission. Although mood is chronically low, he does not meet criteria for clinical depression at this time, and his primary problem is his alcoholism. He was strongly encouraged to consider inpatient rehab, but is unwilling to do so. He is also unwilling to consider IOP, but after much discussion, he is willing for a referral to outpatient therapy with a private practitioner. If he is still here tomorrow, we can assist with making this referral. He would benefit from working with somebody who has experience treating addiction. (1) Alcohol dependence: -Management of withdrawal per primary team. -Reviewed the risks of ongoing alcohol use, of which the patient is well aware from multiple previous episodes of care. -Primary recommendation is for inpatient rehab, which he is declining. He is also declining IOP, but is willing to accept a referral for individual psychotherapy in the community. Substance use status: unspecified alcohol-induced disorder Qualified Code(s): F10.29 - Alcohol dependence with unspecified alcohol-induced disorder Present on Admission?: Yes (2) Mood disorder: -Continue home medications and follow-up with [facility] Kapadia. -Patient is not interested in inpatient psychiatric treatment, and does not meet criteria for involuntary commitment. Present on Admission?: Yes Risk Factors Assessment Male: Yes : Yes Do You Have Access To A Gun?: No Health Problems: No Mental Health Diagnoses: Yes Substance Use Disorders: Yes Previous Attempt: No Family History of Suicide: No Previous Psychiatric Hospitalization: Yes Hopelessness: No Protective Factors Assessment : No Responsible for Young Children: No Employed: Yes Stable Relationships: Yes Supportive Family: Yes Good Rapport with Provider: Yes Absence of Any Risk Factors Above: Yes (Patient is denying active symptoms of depression and suicidal thoughts. He reports good support from friends and children, and is willing to follow up with outpatient care.) Psych History Identifying Data 53-year-old male with a history of severe and chronic alcohol dependence and depression who presented to the ER yesterday intoxicated, after calling the [facility]. He reported an intentional overdose on an unknown amount of trazodone and lisinopril while in the ER, and said he did this in order to sleep. He was admitted to the hospitalist service for toxic ingestion, and psychiatry was consulted for the same. Chief Complaint "Okay I am better, the stupid drinking". History of Present Illness The patient is well-known to me from review of his episodes of care, last on our unit in 01/2018. He was discharged with outpatient care at [facility] . Since then, he has been seen in our emergency room 6 times, all for alcohol intoxication and related injuries. He was seen in the ER twice in the past week, and ultimately admitted yesterday after he presented with a BAL of 327 and reported overdosing on an unknown amount of lisinopril and trazodone in an attempt to go to sleep. He reported drinking a handle of vodka when he presented to the ER, and denied that he took the additional medications with intent to harm himself. His EKG was normal, electrolytes were within normal limits, the remainder of his toxicology screen was negative. His blood pressure was normal to elevated. He was admitted to the hospitalist service and started on a withdrawal protocol. He is consistently denied suicidal ideation and an attempt to harm himself. There is a 302 petition filled out (petitioner did not write their name however), which states the patient arrived in the ER with police and was heavily intoxicated. Police reported that the patient has a long history of alcohol abuse, and often calls police while he is intoxicated (3-4 times a week) stating he is going to go to his ex-'s house and destroy the cameras. When the police responded to his call on the day of presentation, he agreed to come to the hospital to "sober up and talk." He made a statement about "taking pills to go to sleep." In the ER, he denied suicidal thoughts, but reported taking 5-6 tablets of lisinopril and trazodone prior to arrival. He denied that he did this to try to harm himself or end his life, and said that he just wanted to sleep. On my assessment, the patient reports that his drinking has been out of control, and that he knows he needs to stop. He states that his mood is good when he is not drinking, but is poor after he drinks and "says stupid things." He says he tried to "cut back and drink responsibly," but was unable to maintain this in his alcohol intake increased. He says he has good supports, including his children and friends, but that they are frustrated with him for his ongoing alcohol use. He does not remember the statements he made while intoxicated, but denies that he has had suicidal thoughts or has attempted to harm himself. He repeatedly states he wants to stop drinking, "I gotta stop drinking, gotta stop doing this, it's getting ridiculous." He denies current withdrawal symptoms, and denies active symptoms of depression, other than feeling guilty and upset with himself when intoxicated. He denies symptoms of anxiety, elda, and psychosis. He is dismissive of recommendations for substance abuse treatment, stating he has support from friends, and has already tried treatment and does not like it. After much discussion, he was willing to consider a referral for an individual therapist, but is adamant that he does not want to return to [facility] as "it's all court ordered people there." Past Psychiatric History Previous Psych History: Previous diagnoses include depression NOS (substance- induced depression versus major depression), generalized anxiety disorder, alcohol use disorder severe. History of noncompliance with outpatient treatment. Current Psychiatric Diagnosis: Alcohol dependence, depression Outpatient Services: None currently Previous Psych Admissions: [facility] 01/2018, 06/2014; [place] 2014 Do You Have Access To A Gun?: No History of Previous Suicide Attempt: No Past Medication Trials: Citalopram Fluoxetine Sertraline Trazodone Allergies Allergy/AdvReac Type Severity Reaction Status Date / Time No Known Allergies Allergy Verified 06/25/19 18:18 Home Medications Home Medications Medication Instructions Recorded Confirmed Type atorvastatin 10 mg tablet 10 mg PO DAILY #90 tab 05/13/19 06/25/19 Rx fluoxetine 40 mg capsule 40 mg PO DAILY #90 cap 05/13/19 06/25/19 Rx gabapentin 300 mg capsule 300 mg PO BID PRN #180 cap 05/13/19 06/25/19 Rx lisinopril 20 mg tablet 20 mg PO DAILY #90 tab 05/13/19 06/25/19 Rx meloxicam 15 mg tablet 7.5 mg PO BID #90 tab 05/13/19 06/25/19 Rx trazodone 50 mg PO HS PRN 06/18/19 06/25/19 History Substance Abuse History Long history of alcohol dependence throughout his adult life, multiple hospitalizations for intoxication/alcohol withdrawal/alcohol overdose. Multiple presentations with BAL > 300, often drinks until he blacks out. History of DUIs and loss of route [place] driver's license. Multiple inpatient rehabs in the past, including [place] 2010 and [facility] 2013. Longest period of sobriety was 3-6 months and was years ago. Longest period of sobriety in the past year was approximately 1 week. History of outpatient substance abuse treatment at [facility], but was noncompliant. Personal History Childhood: Grew up in [place] and [place]. Both parents are . Moved here in 2000 after her parents . Has 2 brothers and 1 sister who live out of state. Employment Status: [employer] Employed (Works for a [employer] company, has missed multiple days and states his employment status is "[employer].") Marital Status: (After 7 years of marriage, due to his alcoholism. Ex is remarried and lives next door to him.) Number Of Children: 3 adult children Beliefs That Will Affect Care: None History of Legal Problems: DUIs, denies current legal problems Patient History Medical History Alcohol use disorder, severe, dependence (Chronic) Bilateral hip pain Cannabis abuse (Chronic) Depression (Resolved) Gastric ulcer (Resolved) Hypertension (Resolved) Kidney stones Surgical History History of colonoscopy History of left hip replacement partial 2011 Dr. Houston History of open reduction and internal fixation (ORIF) procedure left arm--hardware removed History of total replacement of right hip 2006 Dr. [place] History of wisdom tooth extraction Family History Mother Family history of diabetes mellitus Depression Father Alcohol abuse Cardiac disorder Hypertension Myocardial infarction Brother Alcohol abuse Seizure Other No family history of adverse response to anesthesia Social History Preferred Language: Marshallese Communication Ability: Effective Visual Impairment: No Limitations Hearing Ability: Normal Facility Planner Required: No Beliefs That Will Affect Care: None marital status: Current Living Situation: Alone current occupational status: employed current occupation: [employer] Feels Safe at Home: Yes Safety Concerns: Feels Safe At This Time Smoking Status: Current every day smoker Tobacco Type: cigarettes ; Age Started Using Tobacco: 18 ; Cigarettes Per Day: 10 ; Second Hand Exposure: Yes (father smoked) ; Hx Alcohol Use: Yes Alcohol type: beer and hard liquor Alcohol Intake Frequency Comment: patient states he has been sober for three months Hx Substance Use: No Childhood Exposure to Second-Hand Smoke: Yes Dental Care, Regularly: Yes Physical Activity Frequency: Does not Exercise Seatbelt Use: sometimes Sunscreen Use: No Physical Exam Psychiatric: Obese male appearing older than his stated age. Lying in bed in no acute distress. Dressed in paper scrubs, large tattoo right forearm. Poor eye contact. Calm and cooperative with the assessment. Speech is normal rate, volume, and tone. Thoughts are goal-directed. Mood is "better now," affect is blunted. Denies SI, HI, hallucinations, paranoia. No delusions evident. Alert and oriented. Level of intelligence is average. Insight and judgment are poor. Vital Signs (Past 24 Hours): Last Vital Signs Temp 36.4 C L 06/26/19 04:10 Pulse 64 06/26/19 09:44 Resp 16 06/26/19 09:44 BP 164/93 H 06/26/19 09:44 Pulse Ox 95 06/26/19 09:44 Review of Systems All systems reviewed & are unremarkable except as noted in HPI & below Denies alcohol withdrawal symptoms currently Results & Data Medications Administered Atorvastatin Calcium (Lipitor) 10 mg PO DAILY [facility] Stop: 07/26/19 08:59 Last Admin: 06/26/19 08:02 Dose: 10 mg Documented by: [id number] Fluoxetine HCl (Prozac) 40 mg PO DAILY [facility] Stop: 07/26/19 08:59 Last Admin: 06/26/19 08:02 Dose: 40 mg Documented by: [id number] Folic [facility] ([facility]olvite) [address] [facility] Stop: 07/26/19 08:59 Last Admin: 06/26/19 08:02 Dose: 1 mg Documented by: [id number] Lactated Ringer's (Lr) 1,000 mls @ 125 mls/hr IV .Q8H [facility] Stop: 07/25/19 23:11 Last Admin: 06/26/19 08:01 Dose: 125 mls/hr Documented by: [id number] Infusion: 06/26/19 07:42 Dose: 125 mls/hr Documented by: [id number] Admin: 06/25/19 23:42 Dose: 125 mls/hr Documented by: [id number] Meloxicam (Mobic) 7.5 mg PO BID [facility] Stop: 07/25/19 23:11 Last Admin: 06/26/19 08:02 Dose: 7.5 mg Documented by: [id number] Admin: 06/25/19 23:52 Dose: 7.5 mg Documented by: [id number] Thiamine HCl (Vitamin B-1) 100 mg PO QAM [facility] Stop: 07/26/19 08:59 Last Admin: 06/26/19 08:02 Dose: 100 mg Documented by: [id number] Coding Level of Care Code 94638 [facility] Intl Hosp Care Lvl 3 Diagnoses Alcohol dependence F10.29 Substance use status: unspecified alcohol-induced disorder Mood disorder F39
--- NOTE | 2019-06-26 15:33 | Hospitalist Progress Note ---
Date of Service June 26, 2019 Mulu Kirkland is a 53 year old man with a past medical history of depression with homicidal and suicidal ideation, polysubstance overdose and multiple hospitalizations for his mental health. He is resting comfortably today denying all symptoms and Results & Data Vital Signs (Past 12 Hours) Vital Signs Temp Pulse Pulse Resp BP Pulse Ox 06/26/19 14:47 37.3 C 70 22 153/84 H 98 06/26/19 12:30 71 162/91 H 06/26/19 11:59 37 C 73 20 184/107 H 96 06/26/19 09:44 64 16 164/93 H 95 06/26/19 08:30 79 06/26/19 04:10 36.4 C L 71 19 126/77 95
--- NOTE | 2019-06-26 18:11 | Hospitalist Progress Note ---
Date of Service June 26, 2019 Assessment & Plan (1) Bilateral hip pain: (2) Intentional drug overdose: 53-year-old male with history of alcohol use disorder, depression with history of suicidal and homicidal ideations, hypertension, hyperlipidemia, history of gastric ulcer and kidney stones presents status post drinking a large amount of vodka today and taking 5 lisinopril tabs and 4-5 trazodone tabs ?Overdose Alcohol intoxication, trazodone and lisinopril Reports just wanted to end the day and did not think it was going to kill him however he has history of depression with suicidal and homicidal ideation U tox negative, EtOH 327, Tylenol level less than 2 and salicylate level less than 2.5 Electrolytes remained normal limits No QT changes or seizures at this time Repeat ECG unconcerning Alcohol intoxication Drinks a handle of vodka about once a week and Doesn not know how much he drank last night No previous history of withdrawals EtOH level 327 Given banana bag Started on alcohol withdrawal protocol with Ativan as needed Started on folic acid and thiamine daily Patient desiring to quit drinking, does not want to do inpatient rehab willing to do IOP Depression with history of suicidal and homicidal ideation No suicidal or homicidal ideation at this time Made suicidal and homicidal statements last night, psych will evaluate today Continue home fluoxetine Hypertension Will resume lisinopril now that he is hypertensive Hyperlipidemia Continue home atorvastatin Hip pain status post bilateral hip replacements Continue home, Thompson and meloxicam History of kidney stones FEN/GI:, heart healthy diet DVT prophylaxis: Low risk, SCDs, encourage ambulation Code: Full Disposition: MedSurg with telemetry; consult case management to help obtain insurance (3) Alcohol intoxication: (4) Mood disorder: (5) Alcohol dependence: (6) Depression with anxiety: (7) Hyperglycemia: (8) Pure hypercholesterolemia: (9) Alcohol use disorder, severe, dependence: (10) Cannabis abuse: Supervising Physician Co-Signing Physician Notes Resident Physician Supervision Note: I independently interviewed and examined the patient and verified the boykin history and physical, reviewed labs and image studies, discussed the case with the resident Dr. Oconnell and agree with the findings and care plan. Subjective Mr. Kirkland is resting comfortably today, he confirms that he took a handful of lisinopril and trazodone because he wasn't thinking straight and wanted to sleep and get his blood pressure "under control". He denies trying to "actually hurt himself". He is feeling in his usual state of health now. Review of Systems Constitutional: no fever, no chills, no sweats and no body aches Eyes: no problem reported Respiratory: no cough, no dyspnea, no wheezing and no problem reported Cardiovascular: no chest pain, no dyspnea, no lightheadedness, no syncope and no edema Gastrointestinal: no abdominal pain, no nausea, no vomiting, no constipation and no diarrhea/loose stools Physical Exam Constitutional: WD/WN, vitals as above Eyes: PERRL, conjunctivae normal, anicteric sclerae ENMT: external ear and nose normal, oropharynx normal Respiratory: normal respiratory effort, lungs clear to auscultation A uscultation: no crackles, no rales, no rhonchi and no wheezes Cardiovascular: Rate/Rhythm: regular rate and regular rhythm Heart Sounds: normal S1 and normal S2; no click, no gallop, no murmur and no cardiac rub Gastrointestinal (Abdomen): normal bowel sounds, soft, nontender, no hepatosplenomegaly Skin: no rashes, warm and dry Results & Data Vital Signs (Past 12 Hours) Vital Signs Temp Pulse Pulse Resp BP Pulse Ox 06/26/19 15:34 36.5 C 66 18 155/94 H 95 06/26/19 14:47 37.3 C 70 22 153/84 H 98 06/26/19 12:30 71 162/91 H 06/26/19 11:59 37 C 73 20 184/107 H 96 06/26/19 09:44 64 16 164/93 H 95 06/26/19 08:30 79 (1) Alcohol dependence Substance use status: unspecified alcohol-induced disorder Qualified Code(s): F10.29 - Alcohol dependence with unspecified alcohol-induced disorder (2) Intentional drug overdose Encounter type: initial encounter Qualified Code(s): T50.902A - Poisoning by unspecified drugs, medicaments and biological substances, intentional self-harm, initial encounter (3) Alcohol intoxication Complication of substance-induced condition: uncomplicated Qualified Code(s): F10.920 - Alcohol use, unspecified with intoxication, uncomplicated
[2019-06-27 07:34] LABS: Basophils # (auto) 0.03 K/uL (0-0.2); Basophils % (auto) 0.5 %; Eosinophils # (auto) 0.28 K/uL (0-0.5); Eosinophils % (auto) 4.8 %; Hematocrit (blood only) 38.8 % (42-52); Hemoglobin 13.6 g/dL (14.0-18.0); Immature Granulocytes # (auto) 0.01 K/uL (0.00-0.02); Immature Granulocytes % (auto) 0.2 %; Lymphocytes # (auto) 1.35 K/uL (1.2-3.4); Lymphocytes % (auto) 22.9 %; Mean Corpuscular Hemoglobin 32.1 pg (25-34); Mean Corpuscular Hgb Conc 35.1 g/dL (32-36); Mean Corpuscular Volume 91.5 fL (80-100); Mean Platelet Volume 9.3 fL (7.4-10.4); Monocytes # (auto) 0.33 K/uL (0.11-0.59); Monocytes % (auto) 5.6 %; Neutrophils # (auto) 3.89 K/uL (1.4-6.5); Platelet Count 191 K/uL (130-400); RDW Coefficient of Variation 12.9 % (11.5-14.5); RDW Standard Deviation 42.8 fL (36.4-46.3); Red Blood Count 4.24 M/uL (4.7-6.1); White Blood Count 5.89 K/uL (4.8-10.8)
[2019-06-27 07:46] LABS: Prothrombin Time 10.3 Seconds (9.0-12.0)
[2019-06-27 07:54] LABS: Albumin Level 3.7 gm/dl (3.4-5.0); BUN Creatinine Ratio 15.4 (10-20); Calcium 9.4 mg/dl (8.5-10.1); Creatinine Clr Calc Pharmacy 121.5 ml/min; Est GFR (African American) 112.1; Est GFR (Non-African American) 96.7; Potassium 3.9 mmol/L (3.5-5.1)
[2019-06-27 07:57] LABS: Globulin 3.6 gm/dl (2.5-4.0); Total Protein 7.3 gm/dl (6.4-8.2)
[2019-06-27] MEDS: MELOXICAM 7.5 MG TAB PO SCH (07:59)
[2019-06-27] MEDS: FOLIC ACID 1 MG TAB PO SCH (07:59)
[2019-06-27] MEDS: THIAMINE HCL 100 MG TAB PO SCH (07:59)
[2019-06-27] MEDS: FLUOXETINE HCL 20 MG CAP PO SCH (08:00)
[2019-06-27] MEDS: ATORVASTATIN 10 MG TAB PO SCH (08:00)
[2019-06-27] MEDS ORDERED: LISINOPRIL 20 MG TAB PO SCH (09:00)
--- NOTE | 2019-06-27 15:27 | Discharge Summary ---
Date of Service June 27, 2019 Admission HPI Per Admitting Provider The patient is well-known to me from review of his episodes of care, last on our unit in 01/2018. He was discharged with outpatient care at [facility]. Since then, he has been seen in our emergency room 6 times, all for alcohol intoxication and related injuries. He was seen in the ER twice in the past week, and ultimately admitted yesterday after he presented with a BAL of 327 and reported overdosing on an unknown amount of lisinopril and trazodone in an attempt to go to sleep. He reported drinking a handle of vodka when he presented to the ER, and denied that he took the additional medications with intent to harm himself. His EKG was normal, electrolytes were within normal limits, the remainder of his toxicology screen was negative. His blood pressure was normal to elevated. He was admitted to the hospitalist service and started on a withdrawal protocol. He is consistently denied suicidal ideation and an attempt to harm himself. There is a 302 petition filled out (petitioner did not write their name however), which states the patient arrived in the ER with police and was heavily intoxicated. Police reported that the patient has a long history of alcohol abuse, and often calls police while he is intoxicated (3-4 times a week) stating he is going to go to his ex-'s house and destroy the cameras. When the police responded to his call on the day of presentation, he agreed to come to the hospital to "sober up and talk." He made a statement about "taking pills to go to sleep." In the ER, he denied suicidal thoughts, but reported taking 5-6 tablets of lisinopril and trazodone prior to arrival. He denied that he did this to try to harm himself or end his life, and said that he just wanted to sleep. On my assessment, the patient reports that his drinking has been out of control, and that he knows he needs to stop. He states that his mood is good when he is not drinking, but is poor after he drinks and "says stupid things." He says he tried to "cut back and drink responsibly," but was unable to maintain this in his alcohol intake increased. He says he has good supports, including his children and friends, but that they are frustrated with him for his ongoing alcohol use. He does not remember the statements he made while intoxicated, but denies that he has had suicidal thoughts or has attempted to harm himself. He repeatedly states he wants to stop drinking, "I gotta stop drinking, gotta stop doing this, it's getting ridiculous." He denies current withdrawal symptoms, and denies active symptoms of depression, other than feeling guilty and upset with himself when intoxicated. He denies symptoms of anxiety, elda, and psychosis. He is dismissive of recommendations for substance abuse treatment, stating he has support from friends, and has already tried treatment and does not like it. After much discussion, he was willing to consider a referral for an individual therapist, but is adamant that he does not want to return to [facility] as "it's all court ordered people there." Admission Exam Per Admitting Provider General: In NAD, cooperative and pleasant HEENT: conjunctival injection, dry oral mucosa Neuro: A&O x 4 Pulm: CTAB equal breath sounds bilaterally CV: RRR, no m/r/g, cap refill 3 secs Abdomen:+BS, no TTP in all quadrants, non-distended, R inguinal hernia LE: no LE edema, no calf TTP Principal Diagnosis Alcohol intoxication Drug overdose Discharge Exam General: Alert, oriented. No acute distress, laying in bed with sitter at bedside. Skin: No noted rashes or bruises Psych: Appropriate mood and affect, nonsuicidal Neuro: No gross deficits HEENT: NC/AT Chest: Nontender to palpation. CV: RRR, Normal s1, s2. No murmurs appreciated Resp: Breath sounds clear bilaterally, no increased effort of breathing. No crackles/rhonchi/rales. Abdomen: Soft, nontender, nondistended. No guarding. No organomegaly appreciated. Extremities: No edema in lower extremities bilaterally. Discharge Data Allergies Allergy/AdvReac Type Severity Reaction Status Date / Time No Known Allergies Allergy Verified 06/25/19 18:18 Consultations 06/25/19 19:32 ED Decision to Admit Stat 06/25/19 23:12 Consult Case Management - Discharge Planning Routine 06/26/19 08:04 Consult Psychiatry Routine Hospital Course (1) Intentional drug overdose: 53-year-old male with history of alcohol use disorder, depression with history of suicidal and homicidal ideations, hypertension, hyperlipidemia, history of gastric ulcer and kidney stones who was admitted with concern for intentional drug overdose. Admitted on Jun 25 and discharged on Jun 27, 2019. ?Overdose Alcohol intoxication, stated ingestion of multiple trazodone 20mg and lisinopril 20mg pills on admission (about 5 each) Reports just wanted to end the day and did not think it was going to kill him however he has history of depression with suicidal and homicidal ideation U tox negative, EtOH 327, Tylenol level less than 2 and salicylate level less than 2.5 Electrolytes remained within normal limits No QT changes or seizures up until time of discharge. Repeat ECG unconcerning Close PCP followup recommended. Alcohol intoxication Drinks a handle of vodka about once a week and unsure how much he drank night before admission No previous history of withdrawals EtOH level 327 Liver enzymes, PT/INR within normal limits Given banana bag Started on alcohol withdrawal protocol with Ativan as needed- did not use as he showed no sign of withdrawal while hospitalized. Counseled on discharge withdrawal can occur within 72hours after the last drink. Advised to return to hospital should withdrawal symptoms occur. Started on folic acid and thiamine daily Patient desiring to quit drinking, does not want to do inpatient rehab. willing to do outpatient alcohol therapy-pt to call to setup as rehab centers require pt to take initiative to setup. PCP followup recommended. Depression with history of suicidal and homicidal ideation No suicidal or homicidal ideation at this time Made suicidal and homicidal statements on night of admission psych consult placed- due to pt declining inpt rehab, suggest outpt rehab. Appreciate recs Continue home fluoxetine Hypertension Held home Lisinopril on admission but resumed once he became hypertensive. Advised to continue Lisinopril 20mg after discharge- DIRECTED Close followup with PCP as BPs were elevated to 187/97 with hr in 50s noted. Likely not secondary to withdrawal given low heart rate Advised followup with PCP for monitoring. Hyperlipidemia Continue home atorvastatin Hip pain status post bilateral hip replacements Continue home, Merom and meloxicam History of kidney stones -stable; no acute events noted. Total Time Total Time Spent Total Time Spent (In Minutes): >30 Discharge Plan Discharge Items Patient Disposition: Home - Self-Care Reason For Visit: OVERDOSE, ETOH INTOXICATION Discharge Diagnosis: alcohol abuse Activity: Resume your previous activity Non-emergency contact: Primary Care Provider Call non-emergency contact if: you have any medication questions and your symptoms worsen Follow-up/Referrals: Carlos Nuñez III, CRNP [Primary Care Provider] - 07/07/19 9:15 am (Please, follow up with Carlos GARBER on July 07 at 9:15 am. *If you need to change this appointment, call the office at [phone].) Diet: Regular Addtl Attending Provider Instructions: We are very optimistic you're going to do well in taking care of yourself. You are absolutely right that the alcohol is destroying your life, but you absolutely are taking the right steps to get ahead of this. Make sure there's no alcohol at home, and maybe even tell the people at the liquor store that you're quitting (i think they're still obligated to sell to you, but at least that could create one more kelvin) -as you pointed out, stress is the most likely thing that can cause you to relapse (as is the case for a huge number of people who struggle with addictions) -as we discussed, life can get messy, and stressful things happen all the time - so even as you're going to rehab counselling, make it a high priority to work on other ways to manage stress (like exercise, music, meditation, reading, etc) so that when stress hits, you have other ways to work on it -our casework specialist were telling me that most rehab facilities will not allow them to do the scheduling for you - rehabs like to have the person actually call themselves (i guess they have a high no-show rate when other people schedule on someone's behalf) - so please make some phone calls to get yourself set up -as we discussed, fortunately your liver labwork looks normal, so you're nowhere near a "point of no return" if you're able to stop now and give your body time to heal! -right now you're not showing us any signs of withdrawal. technically things could still worsen into tomorrow (alcohol withdrawal frequently reaches its worst about 3 days after the last drink) but given that you're 2 days removed with absolutely no signs or symptoms, it's safe to let you get home today -- but, if you were to start to feel sweaty for no good reason, shaky, or feel your heart racing, we'd want you back here right away (extremely unlikely to happen, but if you were to see any of those symptoms, alcohol withdrawal is much safer to endure in the hospital than on your own) blood pressure -today your pressures were running a little high -given that the hospital is a stressful environment, it's pretty common that people run higher here than they do normally -right now we're going to leave your medications "as they are" but we'd definitely want you to follow blood pressures at home - a few times a day, random times, so that you have a good range of where you run to review with your PCP -- if you're still running high, then he'll be able to adjust medications from there Pending Studies at Discharge: No Stand-Alone Forms: [facility], Smoking Cessation, Suicide Prevention Resources Medications and DC Order Prescriptions: Continued atorvastatin 10 mg tablet 10 mg PO DAILY Qty: 90 RF: 1 fluoxetine [Prozac] 40 mg capsule 40 mg PO DAILY Qty: 90 RF: 1 gabapentin 300 mg capsule 300 mg PO BID PRN (Reason: Pain) Qty: 180 RF: 1 lisinopril 20 mg tablet 20 mg PO DAILY Qty: 90 RF: 1 meloxicam 15 mg tablet 7.5 mg PO BID Qty: 90 RF: 1 trazodone 50 mg tablet 50 mg PO HS PRN (Reason: Sleep) RF: 0 Discharge Orders: Discharge Order (Routine); Ordered 06/27/19 Ordered By: Tyrell Ennis Admission Data Admit Date/Time: 06/25/19 20:26 Attending Provider: Tyrlel Ennis Admit Provider: Becky Torres Primary Care Provider: Carlos Nuñez III Other Providers: Becky Torres ; Yarely Cormier ; Milana Resendiz Other Interventions: Discharge Summary Assessment (RN) Last Done: 06/27/19 13:11 DC Date/Time DO NOT enter until pt leaves facility: 06/27/19 14:02 Supervising Physician Co-Signing Physician Notes I personally examined the patient and verified all boykin points of history and exam, discussed case, and agree with decision making with Dr Ojevwe. Feeling better. Feels like he will be safe with himself at home. Expresses a good understanding of steps to take to improve his situation. Expresses that stress does tend to be a major trigger causing him to drink but he is coming up with alternate means of stress management. He has no alcohol at home currently. He feels no symptoms of withdrawal, no shakiness no racing heart no sweatiness, and has never had serious withdrawal that he can remember. Vitals noted, in general he is awake and alert pleasant no distress. HEENT normocephalic atraumatic mucous membranes moist. Breathing unlabored no accessory muscle use good effort. No focal neuro deficits. His rate heart rate is about 60, he is not diaphoretic, he is not tremulous. Alcohol abuse/intoxicationfortunately no serious signs or symptoms of withdrawal. He is about 48 hours removed from his last drink, but really is concerned about getting home sleep he does not miss a shift at work. Given that he has not had any prior serious withdrawal, and he shows no serious signs or symptoms right now, we discussed and it appears reasonable to let him go home so that he can get back to work (hence avoiding another stressor that could cause him to drink more), and we discussed that if he started to get tremulous sweaty or his heart rate felt up at all we would just want him to come right back to the hospital. He agrees. Outpatient rehab, outpatient stress management. Encouraged and applauded his efforts. Elevated blood pressure/baseline hypertensionasymptomaticcontinue home meds, ambulatory monitoring, close PCP follow-up. With no symptoms there is no need for urgent control, although certainly would want his blood pressures to be under better control in the next few dayshence close outpatient follow-up. Resident Activity Tracking Resident Involvement: Resident Care Provided Care Provided: Adult Hospital Medicine
--- NOTE | 2019-06-27 19:02 | Billing Data ---
Coding Level of Care Code D/C Day Management >30 mins
== END 2019-06-27 14:02 | disposition home or self-care (01) | DRG 918 ==
LOC: ED 17:52 → 2W 20:26 → SUATTDRO 20:26 → 2W 22:42